=== PATIENT | male | born 1975 | race Two or more races ===

== ENCOUNTER 2024-05-03 20:14 | Emergency (ER) | payer BC, SELFPAY ==
[2024-05-03 20:14] VITALS: BP 120/80; PULSE 60; RESP 20; TEMP 37; O2SAT 98; BMI 19.8
--- NOTE | 2024-05-03 20:17 | ED_ITS ---
<Statement entered by Libertad Nye DO - 05/05/24 17:20> I was consulted by the CHIDI, and we discussed the complexity of the problems being addressed. I approved the treatment and management plan for this patient's care in the emergency department, thus performing a substantive portion of the medical decision making. Libertad Nye DO Discharge Plan Disposition Patient Disposition: Home, Self-Care Condition: Good Prescriptions Prescriptions: New pantoprazole [Protonix] 40 mg tablet,delayed release (DR/EC) 40 mg PO DAILY Qty: 30 0RF Referrals Follow up/Referrals: Tong John II, MD [Staff Physician] - See instructions Provider,ReferralMD [Referring] - See instructions Activity Restrictions/Add. Instructions Additional Instructions/Restrictions: As we discussed please follow-up with your PCP as scheduled. Please keep your stress test appointment and your ultrasound appointment. I have referred you to gastroenterology for further evaluation. Please call and make an appointment in the morning. I have sent a prescription to your pharmacy for an acid pill to help with your reflux symptoms. Clinical Impressions Clinical Impression: Chest pain Qualifiers: Chest pain type: unspecified Qualified Code(s): R07.9 - Chest pain, unspecified Print Language Print Language: Prydeinig Discharge ED Provider: Libertad Nye HPI <GERALD Robb - Last Filed: 05/04/24 16:14> General Chief Complaint: Chest Pain Stated Complaint: Chest Pain Time Seen by Provider: 05/03/24 20:17 History of Present Illness HPI narrative: Patient presents for left-sided chest pain. Patient states that he began having left upper chest pain around 530 while feeding the horses. He denies trauma or strain. He states that it radiates to his shoulder blade and down his arm. This is the second episode the first occurring approximately a week ago. His PCP evaluated him and has ordered a stress test as well as an upper abdominal ultrasound. Patient actually has been symptom-free since last Wednesday until today. He denies any dysphagia reflux shortness of breath fever chills hemoptysis hematochezia melena nausea vomiting diarrhea but did report diaphoresis when it happened. Patient is currently having chest pain actively in the emergency department however it is less than when it first started. Related Data Previous Rx's ?Medication ?Instructions ?Recorded pantoprazole 40 mg tablet,delayed 40 mg PO DAILY #30 tabs 05/03/24 release (Protonix) Allergies Allergy/AdvReac Type Severity Reaction Status Date / Time sulfamethoxazole Allergy Rash Verified 05/03/24 20:32 [From Septra] trimethoprim [From Septra] Allergy Rash Verified 05/03/24 20:32 PFSH <GERALD Robb - Last Filed: 05/04/24 16:14> PFS Disclaimer: The information contained in this section may have been updated after the patient was seen, as this information can be updated by other users. Social History (Updated 05/03/24 @ 22:55 by GERALD Robb) Smoking Status: Current every day smoker alcohol intake: never current occupational status: employed Travel in the last 8 weeks: None <GERALD Robb - Last Filed: 05/04/24 16:14> ROS Obtained: Yes Systems reviewed as appropriate & no additional complaints except as documented Physical Exam <GERALD Robb - Last Filed: 05/04/24 16:14> General General appearance: alert and in no apparent distress Respiratory Respiratory exam: Present normal lung sounds bilaterally Cardiovascular Cardiovascular exam: Present regular rate Neurological Exam Neurological exam: Present alert, oriented X3, CN II-XII intact and normal gait; Absent motor sensory deficit HEART Score <GERALD Robb - Last Filed: 05/04/24 16:14> HEART Score HEART Score assessment performed?: Yes History (anamnesis): Slightly suspicious ECG: Normal Age: 45-65 years Risk factors: 1-2 risk factors Troponin: </= normal limit HEART Score: 2 <Libertad Nye DO - Last Filed: 05/04/24 01:28> HEART Score HEART Score: 2 Critical Care <GERALD Robb - Last Filed: 05/04/24 16:14> Critical Care Time Critical Care Time: No Medical Decision Making <GERALD Robb - Last Filed: 05/04/24 16:14> Medical Records Medical records reviewed: Yes I reviewed the patient's medical records. Caleb Inquiry Pt receiving controlled substance: No Vital Signs Vital Signs: 05/03/24 20:14 05/03/24 20:31 05/03/24 22:37 Temperature 98.6 F 98.2 F Temperature Source Oral Pulse Rate 70 57 L Pulse Rate [Right Radial] 60 Respiratory Rate 20 20 Blood Pressure 126/86 Blood Pressure [Right Arm] 120/80 Blood Pressure Mean [Right Arm] 93 02 Sat by Pulse Oximetry 98 Oxygen Delivery Method Room Air Room Air Lab Data Lab results reviewed: Yes I reviewed the patient's lab results. Labs: Lab Results 05/03/24 20:25: WBC 10.6, RBC 4.91, Hgb 15.9, Hct 45.8, MCV 93.1, MCH 32.3 H, MCHC 34.7, RDW 13.3, Plt Count 312, MPV 7.7, Neut % (Auto) 60.0, Lymph % (Auto) 32.9, [place] % (Auto) 4.0, Eos % (Auto) 2.1, Baso % (Auto) 1.0, Neut # (Auto) 6.3, Lymph # (Auto) 3.5, Austin # (Auto) 0.4, Eos # (Auto) 0.2, Baso # (Auto) 0.1, PT 10.6, INR 0.94, D-Dimer 0.30, Sodium 139, Potassium 3.8, Chloride 105, Carbon Dioxide 25, Anion Gap 12.8, BUN 19, Creatinine 0.80, Estimated Creat Clear 91, Estimated GFR 103, Est GFR ( Amer) 124, Glucose 133 H, Calcium 9.5, Magnesium 2.1, Total Bilirubin 0.6, AST 40, ALT 20, Alkaline Phosphatase 68, Troponin I < 0.01, Total Protein 7.8, Albumin 4.8, Globulin 3.0, Albumin/Globulin Ratio 1.6, Lipase 105 05/03/24 20:25 05/03/24 20:25 Response Orders (Tests/Meds): ED MEDICATIONS Discontinued Medications Generic Name Dose Route Start Last Admin Trade Name Freq PRN Reason Stop Dose Admin Acetaminophen 1,000 mg 05/03/24 20:38 05/03/24 21:03 Acetaminophen 500mg Tab PO 05/03/24 20:39 1,000 mg ONCE ONE Administration Belladonna Alkaloids 60 ml 05/03/24 20:38 05/03/24 21:02 Belladonna Alkaloids 60 Ml Ml PO 05/03/24 20:39 60 ml ONCE ONE Administration Ketorolac Tromethamine 15 mg 05/03/24 20:38 05/03/24 21:02 Ketorolac 30mg/Ml Vial IV 05/03/24 20:39 15 mg ONCE ONE Administration ORDERS Category Date Time Status XR chest portable Stat Exams 05/03/24 21:44 Completed CBC w/Auto Diff [Complete Blood Count Auto Diff] Stat Lab 05/03/24 20:25 Completed CMP [Comprehensive Metabolic Panel] Stat Lab 05/03/24 20:25 Completed D-Dimer Stat Lab 05/03/24 20:25 Completed INR [Prothrombin Time INR] Stat Lab 05/03/24 20:25 Completed Lipase Stat Lab 05/03/24 20:25 Completed Magnesium Stat Lab 05/03/24 20:25 Completed Trop I [Troponin I] Stat Lab 05/03/24 20:25 Completed MDM Narrative Medical Decision Narrative: In summary patient is a 48-year-old male who presents to the emergency department for evaluation of left upper chest pain. Patient is dynamically stable upon arrival, afebrile. Physical exam is remarkable for unreproducible left upper chest pain including palpation of the shoulder girdle range of motion testing palpation of the chest wall. Breath sounds are clear and equal bilaterally to the bases without adventitious sounds, heart sounds are normal EKG appears to be normal sinus rhythm on the bedside monitor. Patient does have mild right upper quadrant tenderness on palpation but no epigastric tenderness no rebound no guarding no rigidity with normal bowel sounds. Patient is neurovascularly intact in the left upper extremity.. Differential diagnosis includes ACS versus musculoskeletal pain versus neuropathic pain. Initial workup will be conducted with hematologic labs twelve-lead EKG plain film chest x-ray. Initial interventions include crystalloid bolus Toradol Tylenol Lidoderm patch. Initial workup reviewed by me shows his hematologic labs are nonactionable troponin is undetectable and my informal to rotation of his plain film chest x-ray shows no acute processes. Upon repeat evaluation patient reported improvement after initial interventions. Given this I had interactive discussion with the patient regarding his findings and his current workup plan. Patient is already seen his PCP last week for this problem and had been scheduled for stress test tomorrow and an upper abdominal ultrasound. Via patient directed decision making patient is comfortable with continuing on for the stress test as this appears to be low likelihood that this is cardiac in nature and seems much more likely that it is shoulder girdle problem versus possible brachial plexus irritation or possibly referred pain from abdomen although that seems less likely as he has no other symptoms. Given this patient is appropriate for discharge with follow-up with cardiology and his PCP as scheduled. <Libertad Nye, DO - Last Filed: 05/04/24 01:28> Vital Signs Vital Signs: 05/03/24 20:14 05/03/24 20:31 05/03/24 22:37 Temperature 98.6 F 98.2 F Temperature Source Oral Pulse Rate 70 57 L Pulse Rate [Right Radial] 60 Respiratory Rate 20 20 Blood Pressure 126/86 Blood Pressure [Right Arm] 120/80 Blood Pressure Mean [Right Arm] 93 02 Sat by Pulse Oximetry 98 Oxygen Delivery Method Room Air Room Air Lab Data Labs: Lab Results 05/03/24 20:25: WBC 10.6, RBC 4.91, Hgb 15.9, Hct 45.8, MCV 93.1, MCH 32.3 H, MCHC 34.7, RDW 13.3, Plt Count 312, MPV 7.7, Neut % (Auto) 60.0, Lymph % (Auto) 32.9, [place] % (Auto) 4.0, Eos % (Auto) 2.1, Baso % (Auto) 1.0, Neut # (Auto) 6.3, Lymph # (Auto) 3.5, [place] # (Auto) 0.4, Eos # (Auto) 0.2, Baso # (Auto) 0.1, PT 10.6, INR 0.94, D-Dimer 0.30, Sodium 139, Potassium 3.8, Chloride 105, Carbon Dioxide 25, Anion Gap 12.8, BUN 19, Creatinine 0.80, Estimated Creat Clear 91, Estimated GFR 103, Est GFR ( Amer) 124, Glucose 133 H, Calcium 9.5, Magnesium 2.1, Total Bilirubin 0.6, AST 40, ALT 20, Alkaline Phosphatase 68, Troponin I < 0.01, Total Protein 7.8, Albumin 4.8, Globulin 3.0, Albumin/Globulin Ratio 1.6, Lipase 105 Response Orders (Tests/Meds): ED MEDICATIONS Discontinued Medications Generic Name Dose Route Start Last Admin Trade Name Freq PRN Reason Stop Dose Admin Acetaminophen 1,000 mg 05/03/24 20:38 05/03/24 21:03 Acetaminophen 500mg Tab PO 05/03/24 20:39 1,000 mg ONCE ONE Administration Belladonna Alkaloids 60 ml 05/03/24 20:38 05/03/24 21:02 Belladonna Alkaloids 60 Ml Ml PO 05/03/24 20:39 60 ml ONCE ONE Administration Ketorolac Tromethamine 15 mg 05/03/24 20:38 05/03/24 21:02 Ketorolac 30mg/Ml Vial IV 05/03/24 20:39 15 mg ONCE ONE Administration ORDERS Category Date Time Status XR chest portable Stat Exams 05/03/24 21:44 Completed CBC w/Auto Diff [Complete Blood Count Auto Diff] Stat Lab 05/03/24 20:25 Completed CMP [Comprehensive Metabolic Panel] Stat Lab 05/03/24 20:25 Completed D-Dimer Stat Lab 05/03/24 20:25 Completed INR [Prothrombin Time INR] Stat Lab 05/03/24 20:25 Completed Lipase Stat Lab 05/03/24 20:25 Completed Magnesium Stat Lab 05/03/24 20:25 Completed Trop I [Troponin I] Stat Lab 05/03/24 20:25 Completed ECG Data Tracing #1: Attestation: I reviewed this ECG and interpreted as documented below: ECG Narrative: Normal sinus rhythm with a ventricular of [address] changes concerning for ischemia. Normal axis and intervals. ECG initial impression date: 05/03/24 ECG initial impression time: 20:27
--- NOTE | 2024-05-03 20:22 | ECG_ITS ---
APPROVED REPORT Exam: Resting ECG HR:69 bpm ECG Measurements Heart Rate 69 AXES SC 148 P 69 QRSd 81 QRS 87 QT 391 T 70 QTc 410 Conclusion SINUS RHYTHM NORMAL ECG INTERPRETATION BASED ON A DEFAULT AGE OF 40 YEARS UNCONFIRMED REPORT Electronically signed by : PANCHO WHITEHEAD, 05/04/2024 06:51:49
[2024-05-03 20:31] VITALS: PULSE 70
[2024-05-03 20:46] LABS: Basophils # 0.1 K/mm3 (0-0.2); Eosinophils # 0.2 K/mm3 (0.0-0.4); Eosinophils % 2.1 % (0.1-12.0); Hematocrit 45.8 % (42.0-52.0); Hemoglobin 15.9 g/dL (14.1-18.0); Lymphocytes # 3.5 K/mm3 (0.7-4.5); Lymphocytes % 32.9 % (10-50); Mean Corpuscular HGB Conc 34.7 g/dL (31.8-35.4); Mean Corpuscular Hemoglobin 32.3 pg (27.0-31.2); Mean Corpuscular Volume 93.1 fl (80-94); Mean Platelet Volume 7.7 fl (7.4-10.4); Monocytes # 0.4 K/mm3 (0.1-1.0); Neutrophils # 6.3 K/mm3 (1.8-7.8); Platelet Count 312 K/mm3 (142-424); Red Blood Count 4.91 M/mm3 (4.60-6.20); Red Cell Distribution Width 13.3 % (11.5-17.5); White Blood Count 10.6 K/mm3 (4.8-10.8)
[2024-05-03 20:52] LABS: INR 0.94 (0.9-1.1); Prothrombin Time 10.6 seconds (10.1-12.5)
[2024-05-03 20:56] LABS: Albumin Level 4.8 g/dl (3.5-5.0); Chloride 105 mmol/L (98-107); Sodium 139 mmol/L (136-145)
[2024-05-03 20:57] LABS: Potassium 3.8 mmoL/L (3.5-5.1)
[2024-05-03 20:59] LABS: Alanine Aminotransferase 20 U/L (12-78); Albumin/Globulin Ratio 1.6 (1.1-1.8); Alkaline Phosphatase 68 U/L (38-126); Anion Gap 12.8 mEq/L (5-15); Aspartate Amino Transferase 40 U/L (17-59); Bilirubin,Total 0.6 mg/dl (0.2-1.3); Blood Urea Nitrogen 19 mg/dl (9-20); Calcium 9.5 mg/dl (8.4-10.2); Carbon Dioxide 25 mmol/L (22.0-30.0); Creatinine Clearance Estimated 91 mL/min (50-200); Estimated Glomerular Filt Rate 103 ml/min (>60); GFR (African American) 124 ML/MIN (>60); Glucose 133 mg/dl (74-100); Lipase 105 U/L (23-300); Total Protein,Serum 7.8 g/dl (6.3-8.2)
[2024-05-03 21:00] LABS: Magnesium 2.1 mg/dl (1.6-2.3)
[2024-05-03] MEDS: BELLADONNA ALKALOIDS 60 ML ML PO (21:02)
[2024-05-03] MEDS: KETOROLAC 30MG/ML VIAL 15 MG IV (21:02)
[2024-05-03] MEDS: ACETAMINOPHEN 500MG TAB 1000 MG PO (21:03)
[2024-05-03 21:15] LABS: Troponin I < 0.01 ng/ml (0.00-0.034)
--- NOTE | 2024-05-03 21:44 | XR_ITS ---
PROCEDURE INFORMATION: Exam: XR Chest Exam date and time: 05/03/2024 9:42 PM Age: 48 years old Clinical indication: Pain; Chest pressure; Additional info: Chest pain TECHNIQUE: Imaging protocol: Radiologic exam of the chest. Views: 1 view. COMPARISON: No relevant prior studies available. FINDINGS: Lungs: Mild hyperexpansion and hyperlucency with mild diaphragmatic flattening suggesting possible COPD. Pulmonary vasculature grossly normal. No gross pulmonary infiltrates or edema pattern. Pleural spaces: No pleural effusion. No pneumothorax. Heart/Mediastinum: Heart size normal. No tracheal/mediastinal shift. Bones/joints: No acute osseous abnormalities are identified. Old healed right clavicle fracture. IMPRESSION: 1. No acute thoracic process. 2. Evidence of COPD.
[2024-05-03 22:37] VITALS: BP 126/86; PULSE 57; RESP 20; TEMP 36.8; O2SAT 98
== END 2024-05-03 22:40 | disposition home or self-care (01) ==
PROVIDERS: Physician Assistant; Emergency Provider Emergency Medicine; PCP Nurse Practitioner Family
DX: R07.9 Chest pain, unspecified (principal)
CPT/HCPCS: 71045; 80053; 83690; 83735; 84484; 85025; 85378; 85610; 93005; 96374; 99284; J1885

== ENCOUNTER 2024-05-04 14:11 | Outpatient (CLI) | payer BC, SELFPAY ==
--- NOTE | 2024-05-04 | CA_ITS ---
APPROVED REPORT Exam: Resting ECG Reason for Exam: Chest Pain Tech: Abby Cannon Ht:5 ft 6 in Wt:127 lbs BSA: 1.65 m2 HR:55 bpm BP:127/79 mmHg Rhythm: Nsr, early repolorization changes in anterolateral leads Risk Factors Smoking: ECG Measurements Heart Rate 55 AXES Critical Notification Critical Value: No Conclusion Pt exercised 9:44 on Damian protocol Max HR: 170 % of PM: 99% Max BP: 158/80 Mets: 11.5 Test stopped due to: soa, fatigue No cp Occ PVC in recovery 1.[address] depression inferiorly EKG changes positive for ischemia without chest pain GXT only (no imaging) Electronically signed by : Allie Nick MD 05/10/2024 12:17:41
--- NOTE | 2024-05-04 15:36 | US_ITS ---
PROCEDURE INFORMATION: Exam: US Abdomen Complete Exam date and time: 05/04/2024 3:29 PM Age: 48 years old Clinical indication: Abdominal pain; Flank; Left upper quadrant (luq); Additional info: Luq pain TECHNIQUE: Imaging protocol: Real-time ultrasound of the abdomen with image documentation. Complete exam. COMPARISON: No relevant prior studies available. FINDINGS: Liver: Normal echogenicity. No mass. No intrahepatic bile duct dilatation. Gallbladder: No gallstones. No wall thickening. No pericholecystic fluid. Biliary ducts: No dilatation. No stones. Pancreas: Unremarkable as visualized. Right kidney: Normal echogenicity. 4.4 x 4.2 x 3.3 cm septated hypoechoic lesion. No calculi. No hydronephrosis. Left kidney: Normal echogenicity. No mass. No calculi. No hydronephrosis. Spleen: No splenomegaly. Intraperitoneal space: No significant free fluid. Aorta: Unremarkable. No aneurysm. Inferior vena cava: Unremarkable. IMPRESSION: RIGHT kidney lesion, incompletely characterized. Recommend nonemergent MRI.
== END 2024-05-04 23:59 | disposition home or self-care (01) ==
PROVIDERS: PCP Nurse Practitioner Family; Visit Provider Nurse Practitioner Family
DX: R10.12 Left upper quadrant pain (principal); R07.9 Chest pain, unspecified
CPT/HCPCS: 76700; 93017; 93018

== ENCOUNTER 2024-05-11 21:05 | Observation (INO) | payer BC, SELFPAY ==
--- NOTE | 2024-05-11 00:05 | ECG_ITS ---
APPROVED REPORT Exam: Resting ECG HR:48 bpm ECG Measurements Heart Rate 48 AXES NC 159 P 78 QRSd 88 QRS 87 QT 452 T 79 QTc 419 Conclusion SINUS BRADYCARDIA BORDERLINE ECG Trace elevation in inferior leads, no STEMI Electronically signed by : OZZIE PERLA, 05/12/2024 06:47:16
--- NOTE | 2024-05-11 20:59 | ECG_ITS ---
APPROVED REPORT Exam: Resting ECG HR:62 bpm ECG Measurements Heart Rate 62 AXES OH 145 P 65 QRSd 86 QRS 90 QT 395 T 56 QTc 401 Conclusion SINUS RHYTHM WITH SINUS ARRHYTHMIA NONSPECIFIC T-WAVE ABNORMALITY BORDERLINE ECG No STEMI Electronically signed by : OZZIE PERLA, 05/13/2024 03:41:31
--- NOTE | 2024-05-11 21:13 | XR_ITS ---
PROCEDURE INFORMATION: Exam: XR Chest Exam date and time: 05/11/2024 9:17 PM Age: 48 years old Clinical indication: Pain; Left-sided; Additional info: L sided cp TECHNIQUE: Imaging protocol: Radiologic exam of the chest. Views: 1 view. Total images: 2 COMPARISON: CR XR CHEST PORTABLE 05/03/2024 9:42 PM FINDINGS: Tubes, catheters and devices: EKG leads are present. Lungs: Nonspecific hyperinflation. No consolidation. No pulmonary vascular congestion or edema. Pleural spaces: Unremarkable. No pleural effusion. No pneumothorax. Heart/Mediastinum: Unremarkable. No cardiomegaly. No mediastinal widening or hilar enlargement. Bones/joints: Partially visualized mild degenerative changes of the lower thoracic spine. Remote fracture right clavicle. IMPRESSION: 1. No radiographically acute cardiopulmonary process. 2. Nonspecific hyperinflation.
[2024-05-11 21:14] VITALS: BP 136/86; PULSE 67; RESP 20; TEMP 36.7; O2SAT 100; BMI 20.1
--- NOTE | 2024-05-11 21:17 | ED_ITS ---
Discharge Plan Disposition Patient Disposition: Admitted Condition: Fair Prescriptions Prescriptions: No Action pantoprazole [Protonix] 40 mg tablet,delayed release (DR/EC) 40 mg PO DAILY Qty: 30 0RF Referrals Follow up/Referrals: Provider,ReferralMD [Primary Care Provider] - See instructions Clinical Impressions Clinical Impression: Unstable angina Print Language Print Language: [place]ralt[place] Discharge ED Provider: Jay Wade HPI <Jay Wade MD - Last Filed: 05/11/24 23:13> General Chief Complaint: Chest Pain Stated Complaint: Chest Pain Time Seen by Provider: 05/11/24 21:10 History of Present Illness HPI narrative: Please note that above description of symptoms, in this electronic medical record under categorization of recalled from ER triage doctor by RN are reflective of an initial nursing assessment, however, is not reflective of my full history and physical exam that was personally taken and clarified. Consequentially, this preceding description of symptoms, which may include the patient's categorized chief complaint in the EMR, do not reflect my personal clinical impression, and the ultimate description of history of present illness and patient stated complaints should be deferred to this section of the note. Unless stated otherwise or congruent with this section of the note, additional signs, symptoms, or incongruence should be interpreted as inaccurate with my clinical impression. Related Data Previous Rx's ?Medication ?Instructions ?Recorded pantoprazole 40 mg tablet,delayed 40 mg PO DAILY #30 tabs 05/03/24 release (Protonix) Allergies Allergy/AdvReac Type Severity Reaction Status Date / Time sulfamethoxazole Allergy Rash Verified 05/03/24 20:32 [From Septra] trimethoprim [From Marra] Allergy Rash Verified 05/03/24 20:32 PFSH <Jay Wade MD - Last Filed: 05/11/24 23:13> [facility] Disclaimer: The information contained in this section may have been updated after the patient was seen, as this information can be updated by other users. Social History (Updated 05/03/24 @ 22:55 by GERALD Robb) Smoking Status: Current every day smoker alcohol intake: never current occupational status: employed Travel in the last 8 weeks: None <Jay Wade MD - Last Filed: 05/11/24 23:13> ROS Obtained: Yes All systems reviewed & no additional complaints except as documented Physical Exam <Jay Wade MD - Last Filed: 05/11/24 23:13> General General appearance: alert Neck Neck exam: Present trachea midline Chest Chest inspection: Present normal inspection and symmetric chest wall rise Respiratory Respiratory exam: Present normal lung sounds bilaterally; Absent respiratory distress, wheezes, stridor, accessory muscle use or prolonged expiratory phase Cardiovascular Cardiovascular exam: Present regular rate, normal rhythm and other (Pulses equal and symmetric in upper and lower extremities) Extremities Exam Extremities exam: Absent edema Neurological Exam Neurological exam: Present alert, oriented X3 and CN II-XII intact Skin Skin exam: Present warm and dry; Absent cyanosis, diaphoresis or pallor HEART Score <Jay Wade MD - Last Filed: 05/11/24 23:13> HEART Score HEART Score assessment performed?: Yes History (anamnesis): Moderately suspicious ECG: Normal Age: 45-65 years Risk factors: No known risk factors Troponin: </= normal limit HEART Score: 2 <Maicol Jones MD - Last Filed: 05/12/24 00:58> HEART Score HEART Score: 2 Procedures <Jay Wade MD - Last Filed: 05/11/24 23:13> Limited Ultrasound Indication:: Limited cardiac ultrasound Indication: Chest pain Identified cardiac views: -Cardiac parasternal long axis -Cardiac parasternal short axis -Cardiac apical four-chamber Findings: -Cardiac activity present -Gross wall motion normal -Pericardial effusion absent -Right heart strain absent Impression: -Normal cardiac ultrasound Images were saved to permanent archive The study was technically adequate CPT: 91258 This study was performed by me, and I personally interpreted all images/videos. Based on my clinical judgement, these images were adequate and did not necessitate further imaging Critical Care <Jay Wade MD - Last Filed: 05/11/24 23:13> Critical Care Time Critical Care Time: No Medical Decision Making <Jay Wade MD - Last Filed: 05/11/24 23:13> Medical Records Medical records reviewed: Yes I reviewed the patient's medical records. Caleb Inquiry Pt receiving controlled substance: No Caleb was queried for this patient: No Vital Signs Vital Signs: 05/11/24 21:14 05/11/24 21:19 05/11/24 21:29 Temperature 98.0 F Temperature Source Oral Pulse Rate 62 65 Pulse Rate [Left Radial] 67 Respiratory Rate 20 13 Blood Pressure 126/88 Blood Pressure [Right Arm] 136/86 Blood Pressure Mean Blood Pressure Mean [Right Arm] 102 Blood Pressure Source [Right Arm] Automatic Cuff Blood Pressure Position [Right Arm] Sitting 02 Sat by Pulse Oximetry 100 98 Oxygen Delivery Method Room Air 05/11/24 22:00 05/11/24 23:00 05/11/24 23:30 Temperature Temperature Source Pulse Rate 56 L 50 L Pulse Rate [Left Radial] Respiratory Rate 14 15 Blood Pressure 125/80 138/89 128/79 Blood Pressure [Right Arm] Blood Pressure Mean 107 Blood Pressure Mean [Right Arm] Blood Pressure Source [Right Arm] Blood Pressure Position [Right Arm] 02 Sat by Pulse Oximetry 96 97 Oxygen Delivery Method 05/12/24 00:00 05/12/24 00:30 Temperature Temperature Source Pulse Rate 49 L 59 L Pulse Rate [Left Radial] Respiratory Rate 15 12 Blood Pressure 118/72 116/79 Blood Pressure [Right Arm] Blood Pressure Mean Blood Pressure Mean [Right Arm] Blood Pressure Source [Right Arm] Blood Pressure Position [Right Arm] 02 Sat by Pulse Oximetry 96 98 Oxygen Delivery Method Lab Data Labs: Lab Results 05/11/24 21:06: WBC 12.2 H, RBC 5.19, Hgb 17.0, Hct 48.3, MCV 93.2, MCH 32.7 H, MCHC 35.1, RDW 13.1, Plt Count 322, MPV 8.1, Neut % (Auto) 67.3, Lymph % (Auto) 25.6, [place] % (Auto) 4.4, Eos % (Auto) 1.9, Baso % (Auto) 0.7, Neut # (Auto) 8.2 H, Lymph # (Auto) 3.1, [place] # (Auto) 0.5, Eos # (Auto) 0.2, Baso # (Auto) 0.1, D -Dimer 0.58 H, Sodium 138, Potassium 3.8, Chloride 102, Carbon Dioxide 24, Anion Gap 15.8 H, BUN 22 H, Creatinine 0.80, Estimated Creat Clear 90, Estimated GFR 103, Est GFR ( Amer) 124, Glucose 97, Calcium 10.0, Total Bilirubin 0.6, AST 35, ALT 23, Alkaline Phosphatase 70, Troponin I 0.03, NT-Pro-B Natriuret Pep < 20.0, Total Protein 8.6 H, Albumin 5.0, Globulin 3.6 H, Albumin/Globulin Ratio 1.4, HIV 1&2 Antibody Rapid Nonreactive 05/12/24 00:08: Troponin I < 0.01 05/11/24 21:06 05/11/24 21:06 Response Orders (Tests/Meds): ED MEDICATIONS Generic Name Dose Route Start Last Admin Trade Name Major PRN Reason Stop Dose Admin Aspirin 324 mg 05/12/24 00:48 05/12/24 00:49 Aspirin 81mg Chewable Tablet PO 05/12/24 00:49 324 mg ONCE ONE Administration Aspirin 324 mg 05/12/24 00:49 05/12/24 00:53 Aspirin 81mg Chewable Tablet PO 05/12/24 00:50 Not Given ONCE ONE Morphine Sulfate 2 mg 05/12/24 00:55 Morphine 2mg/Ml Syringe IV 05/12/24 00:56 ONCE ONE Nitroglycerin 0.4 mg 05/12/24 00:46 05/12/24 00:48 Nitroglycerin 0.4mg Sl Tablet SL 05/12/24 00:47 0.4 mg ONCE ONE Administration Discontinued Medications Generic Name Dose Route Start Last Admin Trade Name Major PRN Reason Stop Dose Admin Iopamidol 150 ml 05/11/24 22:45 05/11/24 22:46 Iopamidol-370 (76%);100ml Bottle IV 05/11/24 22:46 150 ml ONCE ONE Administration Ketorolac Tromethamine 15 mg 05/11/24 21:15 05/11/24 21:27 Ketorolac 30mg/Ml Vial IV 05/11/24 21:16 15 mg ONCE ONE Administration Sodium Chloride 50 ml 05/11/24 22:45 05/11/24 22:46 0.9 % Sodium Chloride 50 Ml Vial IV 05/11/24 22:46 50 ml ONCE ONE Administration Sodium Chloride 10 ml 05/11/24 22:45 05/11/24 22:46 Sodium Chloride 0.9% 10ml Syr (Rad Only) IV 05/11/24 22:46 10 ml ONCE ONE Administration ORDERS Category Date Time Status CT angio chest PE protocol Stat Cat Scan 05/11/24 22:[address] angio head Stat Cat Scan 05/11/24 22:[address] angio neck Stat Cat Scan 05/11/24 22:[address] head/brain wo con Stat Cat Scan 05/11/24 22:05 Completed CXR --portable [XR chest portable] Stat Exams 05/11/24 21:13 Completed POCUS Point of Care (ER Only) Stat Exams 05/11/24 21:13 Completed CBC w/Auto Diff [Complete Blood Count Auto Diff] Stat Lab 05/11/24 21:06 Completed CMP [Comprehensive Metabolic Panel] Stat Lab 05/11/24 21:06 Completed D-Dimer Stat Lab 05/11/24 21:06 Completed HIV (1&2) Antibody Rapid Stat Lab 05/11/24 21:06 Completed Hep C Ab with Reflex to RNA Stat Lab 05/11/24 21:06 Received NT Pro Brain Natriuretic Pep. Stat Lab 05/11/24 21:06 Completed Trop I [Troponin I] Stat Lab 05/11/24 21:06 Completed Troponin I Q3H Lab 05/12/24 00:08 Completed Troponin I Q3H Lab 05/12/24 03:15 Ordered ECG Request Stat Y 05/11/24 23:51 Ordered MDM Narrative Medical Decision Narrative: 48-year-old male history of hypoglycemia presenting with chest pain. Patient was worked up for chest pain recently here at this hospital. Did not find anything. Went to see shipping weigher, shipping weigher allegedly did nuclear stress test and this was negative. About 30 minutes prior to arrival, patient was laying on the couch watching TV when he had acute onset left-sided chest pain. Radiated down his left arm, radiated upward toward his head, associated with headache. No cough, shortness of breath, diaphoresis, syncope, weakness, left lower extremity symptoms, vision changes, vomiting, or any other acute symptoms. States that the headache is the same that happened to him a couple weeks ago when he had similar chest pains. Also associated with intermittent numbness in his face and his left upper extremity. History was obtained via conversation with patient and family. On arrival, patient hemodynamically stable, alert, oriented x4, appropriate, GCS 15, moving all extremities spontaneously, pupils equal and reactive to light. Full physical exam performed and significant for very well-appearing male who is in no acute distress, but does appear anxious. Deep, steady breathing. Lungs are clear to auscultation anterior and posterior bilaterally. Cardiac exam without murmurs gallops or rubs. Pulses equal and symmetric in upper and lower extremities. Patient neurologically intact with normal pupils. Differential includes panic attack, anxiety, costochondritis, ACS, PA, PE, dissection, among other. Patient was given Toradol for symptomatic management and correction of underlying abnormalities. Patient placed on continuous cardiac monitoring and continuous pulse ox with initial blood pressure 136/80, heart rate 67, saturation 100% on room air. Independent interpretation of EKG shows sinus rhythm 62 beats a minute with no ST or T wave changes concerning for acute ischemia. MA 145, QRS 86, QTc 4 1. Workup independently interpreted and significant for mild leukocytosis 12.2 with neutrophilia. Dimer elevated at nearly 0.6. Troponin and BNP negative. Chest x-ray without acute or pulm airspace disease. On independent interpretation of imaging, no acute cardiopulmonary airspace disease on chest x-ray. CT angiogram of the chest without acute pulmonary embolus or obvious intrathoracic abnormality. CT head and CT angiograms of the head and neck pending at time of handoff. See radiology read for full review of final results. Heart score 2. Bedside [id number] ultrasound was performed with no acute abnormal finding. [employer] disclaimer Much of this encounter note is an electronic patient safety attendant spoken language to printed text. Electronic patient safety attendant of the spoken language may permit errors. Although I have reviewed the note, some errors may still exist. <Maicol Jones MD - Last Filed: 05/12/24 00:58> Vital Signs Vital Signs: 05/11/24 21:14 05/11/24 21:19 05/11/24 21:29 Temperature 98.0 F Temperature Source Oral Pulse Rate 62 65 Pulse Rate [Left Radial] 67 Respiratory Rate 20 13 Blood Pressure 126/88 Blood Pressure [Right Arm] 136/86 Blood Pressure Mean Blood Pressure Mean [Right Arm] 102 Blood Pressure Source [Right Arm] Automatic Cuff Blood Pressure Position [Right Arm] Sitting 02 Sat by Pulse Oximetry 100 98 Oxygen Delivery Method Room Air 05/11/24 22:00 05/11/24 23:00 05/11/24 23:30 Temperature Temperature Source Pulse Rate 56 L 50 L Pulse Rate [Left Radial] Respiratory Rate 14 15 Blood Pressure 125/80 138/89 128/79 Blood Pressure [Right Arm] Blood Pressure Mean 107 Blood Pressure Mean [Right Arm] Blood Pressure Source [Right Arm] Blood Pressure Position [Right Arm] 02 Sat by Pulse Oximetry 96 97 Oxygen Delivery Method 05/12/24 00:00 05/12/24 00:30 Temperature Temperature Source Pulse Rate 49 L 59 L Pulse Rate [Left Radial] Respiratory Rate 15 12 Blood Pressure 118/72 116/79 Blood Pressure [Right Arm] Blood Pressure Mean Blood Pressure Mean [Right Arm] Blood Pressure Source [Right Arm] Blood Pressure Position [Right Arm] 02 Sat by Pulse Oximetry 96 98 Oxygen Delivery Method Lab Data Labs: Lab Results 05/11/24 21:06: WBC 12.2 H, RBC 5.19, Hgb 17.0, Hct 48.3, MCV 93.2, MCH 32.7 H, MCHC 35.1, RDW 13.1, Plt Count 322, MPV 8.1, Neut % (Auto) 67.3, Lymph % (Auto) 25.6, [place] % (Auto) 4.4, Eos % (Auto) 1.9, Baso % (Auto) 0.7, Neut # (Auto) 8.2 H, Lymph # (Auto) 3.1, [place] # (Auto) 0.5, Eos # (Auto) 0.2, Baso # (Auto) 0.1, D -Dimer 0.58 H, Sodium 138, Potassium 3.8, Chloride 102, Carbon Dioxide 24, Anion Gap 15.8 H, BUN 22 H, Creatinine 0.80, Estimated Creat Clear 90, Estimated GFR 103, Est GFR ( Amer) 124, Glucose 97, Calcium 10.0, Total Bilirubin 0.6, AST 35, ALT 23, Alkaline Phosphatase 70, Troponin I 0.03, NT-Pro-B Natriuret Pep < 20.0, Total Protein 8.6 H, Albumin 5.0, Globulin 3.6 H, Albumin/Globulin Ratio 1.4, HIV 1&2 Antibody Rapid Nonreactive 05/12/24 00:08: Troponin I < 0.01 Response Orders (Tests/Meds): ED MEDICATIONS Generic Name Dose Route Start Last Admin Trade Name Freq PRN Reason Stop Dose Admin Aspirin 324 mg 05/12/24 00:48 05/12/24 00:49 Aspirin 81mg Chewable Tablet PO 05/12/24 00:49 324 mg ONCE ONE Administration Aspirin 324 mg 05/12/24 00:49 05/12/24 00:53 Aspirin 81mg Chewable Tablet PO 05/12/24 00:50 Not Given ONCE ONE Morphine Sulfate 2 mg 05/12/24 00:55 Morphine 2mg/Ml Syringe IV 05/12/24 00:56 ONCE ONE Nitroglycerin 0.4 mg 05/12/24 00:46 05/12/24 00:48 Nitroglycerin 0.4mg Sl Tablet SL 05/12/24 00:47 0.4 mg ONCE ONE Administration Discontinued Medications Generic Name Dose Route Start Last Admin Trade Name Major PRN Reason Stop Dose Admin Iopamidol 150 ml 05/11/24 22:45 05/11/24 22:46 Iopamidol-370 (76%);100ml Bottle IV 05/11/24 22:46 150 ml ONCE ONE Administration Ketorolac Tromethamine 15 mg 05/11/24 21:15 05/11/24 21:27 Ketorolac 30mg/Ml Vial IV 05/11/24 21:16 15 mg ONCE ONE Administration Sodium Chloride 50 ml 05/11/24 22:45 05/11/24 22:46 0.9 % Sodium Chloride 50 Ml Vial IV 05/11/24 22:46 50 ml ONCE ONE Administration Sodium Chloride 10 ml 05/11/24 22:45 05/11/24 22:46 Sodium Chloride 0.9% 10ml Syr (Rad Only) IV 05/11/24 22:46 10 ml ONCE ONE Administration ORDERS Category Date Time Status CT angio chest PE protocol Stat Cat Scan 05/11/24 22:[address] angio head Stat Cat Scan 05/11/24 22:[address] angio neck Stat Cat Scan 05/11/24 22:[address] head/brain wo con Stat Cat Scan 05/11/24 22:05 Completed CXR --portable [XR chest portable] Stat Exams 05/11/24 21:13 Completed POCUS Point of Care (ER Only) Stat Exams 05/11/24 21:13 Completed CBC w/Auto Diff [Complete Blood Count Auto Diff] Stat Lab 05/11/24 21:06 Completed CMP [Comprehensive Metabolic Panel] Stat Lab 05/11/24 21:06 Completed D-Dimer Stat Lab 05/11/24 21:06 Completed HIV (1&2) Antibody Rapid Stat Lab 05/11/24 21:06 Completed Hep C Ab with Reflex to RNA Stat Lab 05/11/24 21:06 Received NT Pro Brain Natriuretic Pep. Stat Lab 05/11/24 21:06 Completed Trop I [Troponin I] Stat Lab 05/11/24 21:06 Completed Troponin I Q3H Lab 05/12/24 00:08 Completed Troponin I Q3H Lab 05/12/24 03:15 Ordered ECG Request Stat Y 05/11/24 23:51 Ordered MDM Narrative Medical Decision Narrative: 48-year-old male history of hypoglycemia presenting with chest pain. Patient was worked up for chest pain recently here at this hospital. Did not find anything. Went to see shipping weigher, shipping weigher allegedly did nuclear stress test and this was negative. About 30 minutes prior to arrival, patient was laying on the couch watching TV when he had acute onset left-sided chest pain. Radiated down his left arm, radiated upward toward his head, associated with headache. No cough, shortness of breath, diaphoresis, syncope, weakness, left lower extremity symptoms, vision changes, vomiting, or any other acute symptoms. States that the headache is the same that happened to him a couple weeks ago when he had similar chest pains. Also associated with intermittent numbness in his face and his left upper extremity. History was obtained via conversation with patient and family. On arrival, patient hemodynamically stable, alert, oriented x4, appropriate, GCS 15, moving all extremities spontaneously, pupils equal and reactive to light. Full physical exam performed and significant for very well-appearing male who is in no acute distress, but does appear anxious. Deep, steady breathing. Lungs are clear to auscultation anterior and posterior bilaterally. Cardiac exam without murmurs gallops or rubs. Pulses equal and symmetric in upper and lower extremities. Patient neurologically intact with normal pupils. Differential includes panic attack, anxiety, costochondritis, ACS, PA, PE, dissection, among other. Patient was given Toradol for symptomatic management and correction of underlying abnormalities. Patient placed on continuous cardiac monitoring and continuous pulse ox with initial blood pressure 136/80, heart rate 67, saturation 100% on room air. Independent interpretation of EKG shows sinus rhythm 62 beats a minute with no ST or T wave changes concerning for acute ischemia. MA 145, QRS 86, QTc 4 1. Workup independently interpreted and significant for mild leukocytosis 12.2 with neutrophilia. Dimer elevated at nearly 0.6. Troponin and BNP negative. Chest x-ray without acute or pulm airspace disease. On independent interpretation of imaging, no acute cardiopulmonary airspace disease on chest x-ray. CT angiogram of the chest without acute pulmonary embolus or obvious intrathoracic abnormality. CT head and CT angiograms of the head and neck pending at time of handoff. See radiology read for full review of final results. Heart score 2. Bedside [id number] ultrasound was performed with no acute abnormal finding. [employer] disclaimer Much of this encounter note is an electronic patient safety attendant spoken language to printed text. Electronic patient safety attendant of the spoken language may permit errors. Although I have reviewed the note, some errors may still exist. Jones: Upon my assumption of care patient is stable. I agree with the assessment and plan from the primary provider. I reviewed the ECG from patient's initial presentation and agree it does not demonstrate findings of ischemia. Initial troponin was 0.03, elevated D-dimer with CT angiography pending. CT head, CT angiography of head and neck were negative for acute pathology. I personally interpreted CTA chest and do not appreciate PE or other acute intrathoracic abnormality such as dissection. See radiology read for final interpretation. Patient was placed into ED observation at 2340 for serial troponins and continued cardiac monitoring to rule out evolving PA and preclude unnecessary admission. Repeat ECG personally interpreted demonstrates sinus bradycardia, rate 48, patient does have slight elevation in the inferior leads without reciprocal changes. These do not meet criteria for STEMI but will continue to be monitored. Repeat troponin is actually improved, now undetectable at less than 0.01. Unfortunately patient just called out having worsening chest pain. He is receiving nitro and aspirin. Concern for unstable angina. I discussed this case with Dr. King and we discussed this patient's ECGs. He agrees patient is not having a STEMI but did recommend repeat troponin 1 hour from his last one which would be around 1:15 AM. He also agrees with my plan for admission. He recommended that if patient continues having pain to administer morphine. He does not recommend anticoagulation or other intervention at this time. Additional repeat ECG demonstrates sinus bradycardia, rate 50, normal axis, normal MA and QTc, no dynamic changes from ECG 40 minutes prior, no STEMI. I discussed this case with the hospitalist including cardiology recommendations. Patient was accepted for admission.
[2024-05-11 21:19] VITALS: PULSE 62
[2024-05-11 21:21] LABS: Basophils # 0.1 K/mm3 (0-0.2); Basophils % 0.7 % (0.1-2.0); Eosinophils # 0.2 K/mm3 (0.0-0.4); Eosinophils % 1.9 % (0.1-12.0); Hematocrit 48.3 % (42.0-52.0); Lymphocytes # 3.1 K/mm3 (0.7-4.5); Lymphocytes % 25.6 % (10-50); Mean Corpuscular HGB Conc 35.1 g/dL (31.8-35.4); Mean Corpuscular Hemoglobin 32.7 pg (27.0-31.2); Mean Corpuscular Volume 93.2 fl (80-94); Mean Platelet Volume 8.1 fl (7.4-10.4); Monocytes # 0.5 K/mm3 (0.1-1.0); Monocytes % 4.4 % (1.7-9.3); Neutrophils # 8.2 K/mm3 (1.8-7.8); Neutrophils % 67.3 % (37.0-80.0); Platelet Count 322 K/mm3 (142-424); Red Blood Count 5.19 M/mm3 (4.60-6.20); Red Cell Distribution Width 13.1 % (11.5-17.5); White Blood Count 12.2 K/mm3 (4.8-10.8)
[2024-05-11] MEDS: KETOROLAC 30MG/ML VIAL 15 MG IV (21:27)
[2024-05-11 21:29] VITALS: BP 126/88; PULSE 65; RESP 13; O2SAT 98
[2024-05-11 21:33] LABS: Alanine Aminotransferase 23 U/L (12-78); Albumin/Globulin Ratio 1.4 (1.1-1.8); Alkaline Phosphatase 70 U/L (38-126); Anion Gap 15.8 mEq/L (5-15); Aspartate Amino Transferase 35 U/L (17-59); Bilirubin,Total 0.6 mg/dl (0.2-1.3); Blood Urea Nitrogen 22 mg/dl (9-20); Carbon Dioxide 24 mmol/L (22.0-30.0); Chloride 102 mmol/L (98-107); Creatinine Clearance Estimated 90 mL/min (50-200); Estimated Glomerular Filt Rate 103 ml/min (>60); GFR (African American) 124 ML/MIN (>60); Globulin 3.6 g/dL (1.3-3.2); Glucose 97 mg/dl (74-100); Potassium 3.8 mmoL/L (3.5-5.1); Sodium 138 mmol/L (136-145); Total Protein,Serum 8.6 g/dl (6.3-8.2)
[2024-05-11 21:35] LABS: D-Dimer 0.58 ug/mL (0.0-0.5)
[2024-05-11 21:44] LABS: NT Pro Brain Natriuretic Pep. < 20.0 pg/mL (0-125); Troponin I 0.03 ng/ml (0.00-0.034)
[2024-05-11 22:00] VITALS: BP 125/80; PULSE 56; RESP 14; O2SAT 96
--- NOTE | 2024-05-11 22:00 | CT_ITS ---
PROCEDURE INFORMATION: Exam: CTA Chest With Contrast Exam date and time: 05/11/2024 10:36 PM Age: 48 years old Clinical indication: Pain; Chest pressure; Additional info: Dimer, acute cp L sided TECHNIQUE: Imaging protocol: Computed tomographic angiography of the chest with contrast. Exam focused on the arteries. 3D rendering (Not supervised by radiologist): MIP and/or 3D reconstructed images were created by the technologist. Radiation optimization: All CT scans at this facility use at least one of these dose optimization techniques: automated exposure control; mA and/or kV adjustment per patient size (includes targeted exams where dose is matched to clinical indication); or iterative reconstruction. Contrast material: ISOVUE; Contrast volume: 70 ml; Contrast route: INTRAVENOUS (IV); COMPARISON: CR XR CHEST PORTABLE 05/11/2024 9:17 PM FINDINGS: Pulmonary arteries: Normal. No pulmonary emboli. Aorta: Unremarkable. No aortic aneurysm. No aortic dissection. Celiac trunk and mesenteric arteries: There is an approximate 50% narrowing of the proximal 1 cm of the celiac axis. Lungs: Unremarkable. No consolidation. No masses. Pleural spaces: Unremarkable. No pneumothorax. No pleural effusion. Heart: Unremarkable. No cardiomegaly. No pericardial effusion. Coronary arteries: There are no coronary artery calcifications. Lymph nodes: Unremarkable. No enlarged lymph nodes. Kidneys: Right renal cortical cysts are noted the largest measuring 4 cm. Bones/joints: There are mild degenerative changes of the thoracic spine. No acute fracture is evident. Soft tissues: Unremarkable. IMPRESSION: 1. No acute findings. No pulmonary embolus. 2. 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 Follow-up nonemergent duplex study is suggested. COMMENTS: Consistent with the [employer]'s Incidental Findings Committee white paper (J Am Elyssa Radiol 2018): Any incidental renal lesion less than 1 cm or classified as too small to characterize, or any incidental cystic renal lesion characterized as simple-appearing, is likely benign. No follow-up imaging is recommended for these lesions per consensus recommendations based on imaging criteria.
--- NOTE | 2024-05-11 22:05 | CT_ITS ---
PROCEDURE INFORMATION: Exam: CTA Neck With Contrast Exam date and time: 05/11/2024 10:31 PM Age: 48 years old Clinical indication: Pain; Other: Neck; Additional info: Cp radiating up L side of neck, PHILLIPS TECHNIQUE: Imaging protocol: Computed tomographic angiography of the neck with contrast. Exam focused on the cervical segments of the vasculature. 3D rendering (Not supervised by radiologist): MIP and/or 3D reconstructed images were created by the technologist. Radiation optimization: All CT scans at this facility use at least one of these dose optimization techniques: automated exposure control; mA and/or kV adjustment per patient size (includes targeted exams where dose is matched to clinical indication); or iterative reconstruction. Contrast material: ISOVUE; Contrast volume: 80 ml; Contrast route: INTRAVENOUS (IV); COMPARISON: CT ANGIO HEAD 05/11/2024 10:31 PM FINDINGS: Right common carotid artery: No stenosis. No dissection or occlusion. Right internal carotid artery: No stenosis of the extracranial segment. No dissection or occlusion. Right external carotid artery: No occlusion or stenosis of the origin. Left common carotid artery: No stenosis. No dissection or occlusion. Left internal carotid artery: No stenosis of the extracranial segment. No dissection or occlusion. Left external carotid artery: No occlusion or stenosis of the origin. Right vertebral artery: No stenosis. No dissection or occlusion. Left vertebral artery: No stenosis. No dissection or occlusion. Soft tissues: Normal. No significant soft tissue swelling. Bones/joints: No acute fracture. IMPRESSION: No stenosis or occlusion. REFERENCES: NASCET CRITERIA. The degree of stenosis in the cervical segment of the internal carotid artery is based on NASCET criteria. Normal is no stenosis. Mild is less than 50% stenosis. Moderate is 50-69% stenosis. Severe is 70% to 99% stenosis. Total occlusion is no detectable patent lumen.
--- NOTE | 2024-05-11 22:05 | CT_ITS ---
PROCEDURE INFORMATION: Exam: CT Head Without Contrast Exam date and time: 05/11/2024 10:29 PM Age: 48 years old Clinical indication: Pain; Headache; Additional info: Cp radiating up L side of neck, PHILLIPS TECHNIQUE: Imaging protocol: Computed tomography of the head without contrast. Total images: 548 Radiation optimization: All CT scans at this facility use at least one of these dose optimization techniques: automated exposure control; mA and/or kV adjustment per patient size (includes targeted exams where dose is matched to clinical indication); or iterative reconstruction. COMPARISON: No relevant prior studies available. FINDINGS: Brain: Normal. No hemorrhage. Unremarkable white matter. No mass effect. The arnold-white interface is maintained. Cerebral ventricles: No ventriculomegaly. Paranasal sinuses: Visualized sinuses are unremarkable. No fluid levels. Mastoid air cells: Visualized mastoid air cells are well aerated. Bones: Unremarkable. No acute fracture. Soft tissues: Unremarkable. IMPRESSION: No acute intracranial abnormality.
--- NOTE | 2024-05-11 22:05 | CT_ITS ---
PROCEDURE INFORMATION: Exam: CTA Head With Contrast, Arteriography Exam date and time: 05/11/2024 10:31 PM Age: 48 years old Clinical indication: Pain; Headache; Additional info: Cp radiating up L side of neck, PHILLIPS TECHNIQUE: Imaging protocol: Computed tomographic angiography of the head with contrast. Exam focused on the arteries. 3D rendering (Not supervised by radiologist): MIP and/or 3D reconstructed images were created by the technologist. Radiation optimization: All CT scans at this facility use at least one of these dose optimization techniques: automated exposure control; mA and/or kV adjustment per patient size (includes targeted exams where dose is matched to clinical indication); or iterative reconstruction. Contrast material: ISOVUE; Contrast volume: 80 ml; Contrast route: INTRAVENOUS (IV); COMPARISON: CT ANGIO HEAD 05/11/2024 10:31 PM FINDINGS: ANTERIOR CIRCULATION: Right internal carotid artery: Intracranial segment is patent with no significant stenosis. No aneurysm. Right middle cerebral artery: No occlusion or significant stenosis. No aneurysm. Right anterior cerebral artery: No occlusion or significant stenosis. No aneurysm. Left internal carotid artery: Intracranial segment is patent with no significant stenosis. No aneurysm. Left middle cerebral artery: No occlusion or significant stenosis. No aneurysm. Left anterior cerebral artery: No occlusion or significant stenosis. No aneurysm. POSTERIOR CIRCULATION: Right vertebral artery: No occlusion or significant stenosis. No aneurysm. Left vertebral artery: No occlusion or significant stenosis. No aneurysm. Basilar artery: No occlusion or significant stenosis. No aneurysm. Right posterior cerebral artery: No occlusion or significant stenosis. No aneurysm. Left posterior cerebral artery: No occlusion or significant stenosis. No aneurysm. Brain: No definite mass, mass effect, or midline shift. Cerebral ventricles: No ventriculomegaly. Bones/joints: Unremarkable. No acute fracture. Soft tissues: Unremarkable. IMPRESSION: No large vessel stenosis or occlusion.
[2024-05-11 22:07] LABS: HIV (1&2) Antibody Rapid NONREACTIVE (NONREACTIVE)
[2024-05-11] MEDS: 0.9 % SODIUM CHLORIDE 50 ML VIAL IV (22:46)
[2024-05-11] MEDS: IOPAMIDOL-370 (76%);100ML BOTTLE 150 ML IV (22:46)
[2024-05-11] MEDS: SODIUM CHLORIDE 0.9% 10ML SYR (RAD ONLY) 10 ML IV (22:46)
[2024-05-11 23:00] VITALS: BP 138/89
[2024-05-11 23:30] VITALS: BP 128/79; PULSE 50; RESP 15; O2SAT 97
[2024-05-12] VITALS (17 sets, daily range): BP systolic 103–151; BP diastolic 63–87; PULSE 45–62; RESP 12–20; TEMP 36.4–36.8; O2SAT 96–100; BMI 20.8; BMI 20.9
[2024-05-12 00:38] LABS: Troponin I < 0.01 ng/ml (0.00-0.034)
--- NOTE | 2024-05-12 00:47 | ECG_ITS ---
APPROVED REPORT Exam: Resting ECG HR:50 bpm ECG Measurements Heart Rate 50 AXES TX 158 P 79 QRSd 89 QRS 87 QT 450 T 79 QTc 422 Conclusion SINUS BRADYCARDIA BORDERLINE ECG Trace ST elevation in the inferior leads, no STEMI Electronically signed by : OZZIE PERLA, 05/12/2024 06:46:45
[2024-05-12] MEDS: NITROGLYCERIN 0.4MG SL TABLET 0.4 MG SL (00:48)
[2024-05-12] MEDS: ASPIRIN 81MG CHEWABLE TABLET 324 MG PO (00:49)
--- NOTE | 2024-05-12 00:49 | PC.NURSE ---
Pt's came to nursing station reporting pt is currently having chest pain. MD aware. MD currently on phone with cardiology. EKG obtained. Nurse at bedside. Meds given per SEP.
--- NOTE | 2024-05-12 01:24 | PC.NURSE ---
report called to Jada MCGARRY
[2024-05-12 01:42] LABS: Troponin I < 0.01 ng/ml (0.00-0.034)
--- NOTE | 2024-05-12 01:52 | PC.NURSE ---
Patient arrived to floor via wheelchair from ED at 01:50.
[2024-05-12] MEDS: FAMOTIDINE 20MG TABLET 20 MG PO (02:51)
--- NOTE | 2024-05-12 03:38 | EXP.HP ---
History of Present Illness *Admission Date: 05/12/24 *Reason for visit:: Chest pain *History of present illness: This 48-year-old male, was seen last week for similar problems of a pain to the left upper chest running into the arm., Nuclear stress test was negative at that time., Tonight while watching TV problem returns we came to the emergency room. Dr. King was called and he will to be monitored for his troponins and placed up on the floor.. Potential for catheterizations in the morning patient was still having some chest pain upon arrival to the ER nitroglycerin was tried. Troponins remain normal at this time Patient is noted for being a long-term smoker. He reports no other problems except a little bit of a headache from the nitroglycerin at this time. [facility] Disclaimer: The information contained in this section may have been updated after the patient was seen, as this information can be updated by other users. Surgical History Hx of tonsillectomy Family History Other No significant family history Social History Smoking Status: Current every day smoker alcohol intake: never current occupational status: employed Travel in the last 8 weeks: None Other Medical History Have you received the Flu Vaccine for this season: Yes (05/11/24) Have you received the Pneumonia Vaccine: No Review of Systems Review of Systems Review of systems:: pertinent systems reviewed and negative unless documented below Constitutional Constitutional: Reports as per HPI Eyes Eyes: Reports as per HPI ENT Ears, Nose, Mouth, and Throat: Reports as per HPI *Cardiovascular Cardiovascular: Reports chest pain, Reports chest pain at rest and Reports chest pain with activity *Respiratory Respiratory: Reports as per HPI *Gastrointestinal Gastrointestinal: Reports as per HPI *Genitourinary Genitourinary: Reports system reviewed and no additional complaints, except as documented and Reports as per HPI *Musculoskeletal Musculoskeletal: Reports system reviewed and no additional complaints, except as documented and Reports as per HPI Integumentary/Breasts Skin/Breast: Reports system reviewed and no additional complaints, except as documented and Reports as per HPI *Neurologic Neurologic: Reports system reviewed and no additional complaints, except as documented and Reports as per HPI Endocrine Endocrine: Reports system reviewed and no additional complaints, except as documented Hematologic/Lymphatic Hematologic/Lymphatic: Reports system reviewed and no additional complaints, except as documented Allergic/Immunologic Allergic/Immunologic: Reports system reviewed and no additional complaints, except as documented Meds Home Medications and Allergies Home Medications ?Medication ?Instructions ?Recorded ?Confirmed ?Type pantoprazole 40 mg tablet,delayed 40 mg PO DAILY #30 tabs 05/03/24 05/12/24 Rx release (Protonix) aspirin 81 mg tablet,delayed 81 mg PO DAILY 05/12/24 05/12/24 History release buspirone 10 mg tablet 10 mg PO TID 05/12/24 05/12/24 History famotidine 20 mg tablet 20 mg PO BID 05/12/24 05/12/24 History methocarbamol 500 mg tablet 500 - 1,000 mg (1 - 2 x 500 mg) PO 05/12/24 Rx HS 30 days #60 tabs simethicone 80 mg chewable tablet 80 mg PO TIDP PRN Gas 05/12/24 05/12/24 History New Prescriptions to Start Prescriptions: Orlando Sanderson Allergies Allergy/AdvReac Type Severity Reaction Status Date / Time sulfamethoxazole Allergy Rash Verified 05/03/24 20:32 [From ] trimethoprim [From ] Allergy Rash Verified 05/03/24 20:32 Exam Data for Last 24 hours Vital signs and Labs for Last 24 Hours: Temp Pulse Resp BP Pulse Ox O2 Del Method 97.6 F 53 L 14 129/87 98 Room Air 05/12/24 02:00 05/12/24 02:00 05/12/24 02:00 05/12/24 02:00 05/12/24 02:00 05/12/24 02:30 Laboratory Results - last 24 hr 05/11/24 21:06: WBC 12.2 H, RBC 5.19, Hgb 17.0, Hct 48.3, MCV 93.2, MCH 32.7 H, MCHC 35.1, RDW 13.1, Plt Count 322, MPV 8.1, Neut % (Auto) 67.3, Lymph % (Auto) 25.6, [place] % (Auto) 4.4, Eos % (Auto) 1.9, Baso % (Auto) 0.7, Neut # (Auto) 8.2 H, Lymph # (Auto) 3.1, [place] # (Auto) 0.5, Eos # (Auto) 0.2, Baso # (Auto) 0.1, D-Dimer 0.58 H, Sodium 138, Potassium 3.8, Chloride 102, Carbon Dioxide 24, Anion Gap 15.8 H, BUN 22 H, Creatinine 0.80, Estimated Creat Clear 90, Estimated GFR 103, Est GFR ( Amer) 124, Glucose 97, Calcium 10.0, Total Bilirubin 0.6, AST 35, ALT 23, Alkaline Phosphatase 70, Troponin I 0.03, NT-Pro-B Natriuret Pep < 20.0, Total Protein 8.6 H, Albumin 5.0, Globulin 3.6 H, Albumin/Globulin Ratio 1.4, HIV 1&2 Antibody Rapid Nonreactive 05/12/24 00:08: Troponin I < 0.01 05/12/24 01:10: Troponin I < 0.01 I & O for Last 24 hours: Intake & Output 05/09/24 05/10/24 05/11/24 05/12/24 23:59 23:59 23:59 23:59 Weight 56.699 kg 58.769 kg Radiology Reports for the Last 24 Hours: Patient had CTs head neck chest no acute findings possible possible medium aruciate ligament syndrome as this iliac vein appears to be 50% occluded. Written report suggested follow-up later on Constitutional Constitutional: mild distress *Routine HEENT Exam Head: Present normocephalic and atraumatic Eye: Present EOMI and PERRL ENT: Present mucous membranes moist *Routine Neck Exam Neck: Present supple and full ROM Routine Chest/Breast/Axilla Exam Comments: Normal chest and chest wall exam *Routine Respiratory Exam Respiratory: Present CTA bilaterally, normal respiratory effort and able to speak in complete sentences *Routine Cardiovascular Exam Cardiovascular: Present RRR, Normal S1, Normal S2 and bradycardia *Routine Abdominal Exam Abdominal: Present soft and normoactive bowel sounds Comments: No abdominal tenderness abdomen flat no bloating *Routine Rectal Exam Rectal:: deferred *Routine Genitalia Exam Genitalia:: deferred *Routine Extremities Exam Comments: Normal extremity exam no signs of edema, brisk capillary refill to distal extremities Routine Back/Spine/Pelvis Exam Back/Spine: Present full ROM Comments: No back issues noted patient able to move walk stand as needed without any difficulty *Routine Skin Exam Skin: Present intact, dry and warm *Routine Neurological Exam Neurological: Present alert, oriented X3, CN II-XII intact, vision grossly intact and hearing grossly intact Comments: Patient is German speak Paraguayan fluently his Turkmen is good though., Expressed understanding of all instructions Routine Psychiatric Exam Psychiatric: Present normal affect, normal thought process, cooperative, good insight and good judgment H&P: Result Impressions Unstable angina Smoker Imaging and Cardiology CT scan - chest: Additional comments: No acute findings, noted possible compression of the up to 50% of celiac vessel, Assessment and Plan *Assessment and plan (1) Unstable angina: Status: Acute Category: Medical Code(s): I20.0 - Unstable angina (2) Chest pain: Status: Acute Qualifiers: Chest pain type: unspecified Qualified Code(s): R07.9 - Chest pain, unspecified Category: Medical Code(s): R07.9 - Chest pain, unspecified (3) Smoker: Status: Acute Category: Social Hx Code(s): F17.200 - Nicotine dependence, unspecified, uncomplicated Plan 48-year-old male who presented with chest pain. Discussed case with ER physician, request admission for cardiology evaluation. Cardiology was contacted and recommended admission for evaluation in the morning and possible heart cath. Medicine agreed to admit. Problems addressed as follows: 1. Unstable angina ER physician contacted me to let me know that the patient's troponins have been negative at this time that she had contacted Dr. King that I need to give Dr. King if the troponins increased but they have not throughout the night. Patient has rested well there is been no difficulty with him tonight. 2. Patient is a smoker, did go over with him the need for quitting smoking what he could do to the heart the lungs a potential for cancer in the future. 3. Placed on phototypesetting equipment monitor he is being monitored closely also troponins have continued to come back negative as of 3 AM Rounded on patient after nurse practitioner. Personally examined and interviewed patient. Agree with exam findings and care plan as documented. Serial troponins negative. EKG with no ischemic changes. Monitor on telemetry overnight. N.p.o. at midnight for heart cath. CBC, CMP, magnesium and lipids ordered for the morning; Chemistry normal with BUN 22, creatinine 0.8. Electrolytes normal potassium 3.8, sodium 138.
[2024-05-12 03:57] LABS: Troponin I < 0.01 ng/ml (0.00-0.034)
[2024-05-12 05:57] LABS: POC Glucose,Bedside 98 (70-110)
--- NOTE | 2024-05-12 06:08 | PC.WOUNDNOTE ---
0608: Pt. alert and orientated x 4. Pt. was admitted from the ED overnight. Pt. had left upper chest pain. No pain this am. Pt. is on room air. Pt. has slept since admission. at bedside. vital signs stable.
--- NOTE | 2024-05-12 07:44 | HMH.PHAINT1 ---
Pharmacy Intervention Comments: MEDICATION RECONCILIATION COMPLETED ON PATIENT USING EXTERNAL FILL HISTORY FROM PHARMACY. -LISY HORVATH, KODYD
--- NOTE | 2024-05-12 07:52 | CA_ITS ---
APPROVED REPORT EXAM: Comprehensive 2D, Doppler, and color-flow Echocardiogram Director Of Strategic Partnerships: Shanda Vines, RISHI, RVS Ht: 5 ft 6 in Wt: 130lbs BSA: 1.67 BP: 129/87 mmHg Indications: Atypical CP, Smoker Echo Enhancing Agent Indication: Rule out Shunt Agent(s) / Amount(s) Used: Agitated Saline 20 cc Comments: No evidence of right to left shunt 2D Dimensions Aortic Root 2.86 cm LA Volume 26.20 mL Left Atrium 2.62 cm LA Volume Index 15.70 mL/m2 (M/F) 16-34 RVID Base (AP4) 3.37 cm (M/F) 2.5-4.1 EF AP4 49.80 % LVOT 1.93 cm (M/F) 1.5-2.5 GL Strain -15.3 % M-Mode Dimensions RVDd 2.16 cm (0.9-2.6) LVDd 5.07 cm (3.5-5.7) Ao Diam 3.99 cm (2.0-3.7) LVDs 3.63 cm (3.5-5.7) IVSd 0.44 cm (0.6-1.1) PWd 0.59 cm (0.6-1.1) EF (Teich) 54.50% EPSs 0.63 cm FS 28.40% EDV (Teich) 122.10 mL TAPSE 2.58 (<1.7) ESV (Teich) 55.50 mL LV Diastology E Decel Time 111 (160-240 msec) E/A Ratio 1.95 MED E' 10.8 (>= 7 cm/sec) MED A' 11.00 cm/s E'/MED E' Ratio 6.07 (<= 14) LAT E' 19.6 (>= 10 cm/sec) LAT A' 10.50 cm/s E/LAT E' Ratio 3.35 (<= 14) Aortic Valve LVOT Max 77.0 (70-110 cm/s) JOSE Index 1.10 cm2/m2 LVOT VTI 17.23 cm AoV Peak Kris. 113.0 (50-130 cm/s) AO Mean GR. 2.80 (<5 mmHg) AO VTI 27.4 (18-25 cm) JOSE (VTI) 1.84 (2.5-4.5 cm2) Mitral Valve MV E Max Kris. 66.0 (40-130 cm/s) MV A Velocity 34.0 (40-130 cm/s) E/A Ratio 1.95 MV Decel. Time 111 (160-240 ms) Pulmonary Valve AZ End VMAX 75.0 cm/s Tricuspid Valve TR P. Velocity 252.00 cm/s RAP Estimate 10.00 mmHg RVSP 35.50 mmHg Left Ventricle The left ventricle is normal size. The left ventricular systolic function is normal. The left ventricular ejection fraction is within the normal range. There is normal left ventricular wall thickness. There is mild hypokinesis of the anteroseptal LV wall. The left ventricular diastolic function is normal. LVEF is 55%. Right Ventricle The right ventricle is mildly dilated. The right ventricular systolic function is normal. Atria The left atrium size is normal. The right atrium size is normal. There is no Doppler evidence of interatrial shunt. Administration of agitated saline demonstrates no evidence of interatrial shunt. Aortic Valve The aortic valve opens well. There is no aortic valvular stenosis. Trace aortic regurgitation. Mitral Valve The mitral valve is normal in structure. No evidence of mitral valve stenosis. Trace mitral regurgitation. Tricuspid Valve The tricuspid valve leaflets are thin and pliable. Trace tricuspid regurgitation. RVSP is 20-25 mmHg. Pulmonic Valve The pulmonary valve is normal in structure. Trace pulmonic regurgitation. Great Vessels The aortic root is normal in size. The ascending aorta is not well-visualized. IVC is normal in size and collapses >50% with inspiration. Pericardium There is no pericardial effusion. Other Information Study Quality: Fair Conclusion Normal LV systolic function. Mild hypokinesis of the anterior septal LV wall. Mild RV dilation with normal RV function. No significant valvular stenosis or regurgitation. There is no Doppler evidence of interatrial shunt. Administration of agitated saline demonstrates no evidence of interatrial shunt. Electronically signed by : Allie Nick MD 05/12/2024 10:43:04
--- NOTE | 2024-05-12 09:48 | P.CONCA_ITS ---
History of Present Illness History of Present Illness Consult date: 05/12/24 Requesting physician: Orlando Pan Consult reason: chest pain Chief complaint: chest pain, abnormal stress test Additional Medical History:: 1. Tobacco use, 1 pack/day for greater than 20 years 2. Anxiety 3. Recurrent chest pain with abnormal routine stress test with 1.[address] segment depression inferolaterally at peak stress, 04/2024 History of present illness: 48-year-old male history of hypoglycemia presenting with chest pain. Patient was worked up for chest pain recently here at this hospital. Did not find anything. Went to see filer and sander, filer and sander allegedly did nuclear stress test and this was negative. About 30 minutes prior to arrival, patient was laying on the couch watching TV when he had acute onset left-sided chest pain. Radiated down his left arm, radiated upward toward his head, associated with headache. No cough, shortness of breath, diaphoresis, syncope, weakness, left lower extremity symptoms, vision changes, vomiting, or any other acute symptoms. States that the headache is the same that happened to him a couple weeks ago when he had similar chest pains. Also associated with intermittent numbness in his face and his left upper extremity. History was obtained via conversation with patient and family. On arrival, patient hemodynamically stable, alert, oriented x4, appropriate, GCS 15, moving all extremities spontaneously, pupils equal and reactive to light. Full physical exam performed and significant for very well-appearing male who is in no acute distress, but does appear anxious. Deep, steady breathing. Lungs are clear to auscultation anterior and posterior bilaterally. Cardiac exam without murmurs gallops or rubs. Pulses equal and symmetric in upper and lower extremities. Patient neurologically intact with normal pupils. Differential includes panic attack, anxiety, costochondritis, ACS, NM, PE, dissection, among other. Patient was given Toradol for symptomatic management and correction of underlying abnormalities. Patient placed on continuous cardiac monitoring and continuous pulse ox with initial blood pressure 136/80, heart rate 67, saturation 100% on room air. Independent interpretation of EKG shows sinus rhythm 62 beats a minute with no ST or T wave changes concerning for acute ischemia. DE 145, QRS 86, QTc 4 1. Workup independently interpreted and significant for mild leukocytosis 12.2 with neutrophilia. Dimer elevated at nearly 0.6. Troponin and BNP negative. Chest x-ray without acute or pulm airspace disease. On independent interpretation of imaging, no acute cardiopulmonary airspace disease on chest x-ray. CT angiogram of the chest without acute pulmonary embolus or obvious intrathoracic abnormality. CT head and CT angiograms of the head and neck pending at time of handoff. See radiology read for full review of final results. Heart score 2. Bedside [id number] ultrasound was performed with no acute abnormal finding. The above per Dr. Maicol Jones in the ER Events as noted above confirmed with the patient. The stress test recently was a routine stress test without imaging. Patient did have 1.[address] segment depression in the inferior lateral leads at peak stress. He did walk 9 minutes and 44 seconds and did not have chest pain but did have shortness of breath and fatigue. In light of the recurrent chest pain and a male smoker with an abnormal stress test, I have recommended proceeding with left heart catheterization. Risk, benefits and procedure explained to the patient and his and they both agree to proceed. [facility] Disclaimer: The information contained in this section may have been updated after the patient was seen, as this information can be updated by other users. Surgical History Hx of tonsillectomy Family History Other No significant family history Social History Smoking Status: Current every day smoker alcohol intake: never current occupational status: employed Travel in the last 8 weeks: None Review of Systems Review of Systems Review of systems:: pertinent systems reviewed and negative unless documented below *Cardiovascular Cardiovascular: Reports chest pain and Reports dyspnea on exertion *Respiratory Respiratory: Denies cough and Reports dyspnea on exertion *Neurologic Neurologic: Reports system reviewed and no additional complaints, except as do cumented and Reports as per HPI Exam Data for Last 24 hours Vital signs and Labs for Last 24 Hours: Temp Pulse Resp BP Pulse Ox O2 Del Method 97.9 F 52 L 18 129/73 99 Room Air 05/12/24 08:00 05/12/24 08:00 05/12/24 08:00 05/12/24 08:00 05/12/24 08:00 05/12/24 09:34 Laboratory Results - last 24 hr 05/11/24 21:06: WBC 12.2 H, RBC 5.19, Hgb 17.0, Hct 48.3, MCV 93.2, MCH 32.7 H, MCHC 35.1, RDW 13.1, Plt Count 322, MPV 8.1, Neut % (Auto) 67.3, Lymph % (Auto) 25.6, [place] % (Auto) 4.4, Eos % (Auto) 1.9, Baso % (Auto) 0.7, Neut # (Auto) 8.2 H, Lymph # (Auto) 3.1, [place] # (Auto) 0.5, Eos # (Auto) 0.2, Baso # (Auto) 0.1, D-Dimer 0.58 H, Sodium 138, Potassium 3.8, Chloride 102, Carbon Dioxide 24, Anion Gap 15.8 H, BUN 22 H, Creatinine 0.80, Estimated Creat Clear 90, Estimated GFR 103, Est GFR ( Amer) 124, Glucose 97, Calcium 10.0, Total Bilirubin 0.6, AST 35, ALT 23, Alkaline Phosphatase 70, Troponin I 0.03, NT-Pro-B Natriuret Pep < 20.0, Total Protein 8.6 H, Albumin 5.0, Globulin 3.6 H, Albumin/Globulin Ratio 1.4, HIV 1&2 Antibody Rapid Nonreactive 05/12/24 00:08: Troponin I < 0.01 05/12/24 01:10: Troponin I < 0.01 05/12/24 03:10: Troponin I < 0.01 05/12/24 05:48: POC Glucose 98 I & O for Last 24 hours: Intake & Output 05/09/24 05/10/24 05/11/24 05/12/24 11:59 11:59 11:59 11:59 Output Total 0 / 0 Balance 0 / 0 Weight 130 lb 5 oz Constitutional Constitutional: no acute distress *Routine Respiratory Exam Respiratory: Present CTA bilaterally *Routine Cardiovascular Exam Cardiovascular: Present RRR; Absent murmur or gallop *Routine Extremities Exam Extremities: Absent edema *Routine Neurological Exam Neurological: Present alert, oriented X3 and CN II-XII intact Meds Home Medications and Allergies Home Medications ?Medication ?Instructions ?Recorded ?Confirmed ?Type pantoprazole 40 mg tablet,delayed 40 mg PO DAILY #30 tabs 05/03/24 05/12/24 Rx release (Protonix) aspirin 81 mg tablet,delayed 81 mg PO DAILY 05/12/24 05/12/24 History release buspirone 10 mg tablet 10 mg PO TID 05/12/24 05/12/24 History famotidine 20 mg tablet 20 mg PO BID 05/12/24 05/12/24 History methocarbamol 500 mg tablet 500 mg PO DAILY 05/12/24 05/12/24 History simethicone 80 mg chewable tablet 80 mg PO TIDP PRN Gas 05/12/24 05/12/24 History New Prescriptions to Start Prescriptions: Allergies Allergy/AdvReac Type Severity Reaction Status Date / Time sulfamethoxazole Allergy Rash Verified 05/03/24 20:32 [From ] trimethoprim [From ] Allergy Rash Verified 05/03/24 20:32 Assessment and Plan *Assessment and plan (1) Chest pain: Status: Acute Qualifiers: Chest pain type: unspecified Qualified Code(s): R07.9 - Chest pain, unspecified Category: Medical Code(s): R07.9 - Chest pain, unspecified (2) Unstable angina: Status: Acute Category: Medical Code(s): I20.0 - Unstable angina (3) Smoker: Status: Acute Category: Social Hx Code(s): F17.200 - Nicotine dependence, unspecified, uncomplicated (4) Abnormal cardiovascular stress test: Status: Acute Category: Medical Code(s): R94.39 - Abnormal result of other cardiovascular function study Plan 1. Recurrent chest pain/unstable angina in a patient with abnormal stress test -Troponins normal -EKG with no acute ST segment changes -Preliminary echo shows normal ejection fraction -Proceed with left heart catheterization. Offered CCTA but patient would prefer to proceed with the cardiac cath for definitive diagnosis and treatment. -Heart rates in the 50s and blood pressure borderline low so therefore unable to add beta-marely therapy or other antianginal therapy 2. Tobacco use -Smoking cessation recommended 3. 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 Left heart catheterization today Further recommendations to follow Cardiac cath report: ANGIOGRAPHIC RESULTS The left main artery Normal The left anterior descending artery Proximal 10% luminal irregularity The circumflex artery Normal The right coronary artery Dominant with proximal 10% luminal regularities The PERRY ventriculogram reveals Normal 65% The left ventricular end-diastolic pressure 10 mmHg IMPRESSION Mild nonflow limiting coronary disease Normal ejection fraction Normal LVEDP PLAN 1. Evaluation of nonischemic chest pain 2. Risk factor modification Electronically signed by : Florencio King MD 05/12/2024 11:54:05 Stable from a cardiac standpoint for discharge home later today. Resume home medications. Follow-up in our office in 1 to 2 weeks.
--- NOTE | 2024-05-12 09:53 | IR_ITS ---
APPROVED REPORT Patient Location: Inpatient PROCEDURES Left heart catheterization Left ventriculogram Selective coronary angiogram INDICATION Unstable angina, Abnormal stress test Informed consent was obtained prior to the procedure. COMPLICATIONS NONE Estimated Blood Loss: LESS THAN 10 ML TECHNIQUE One percent lidocaine used to anesthetize the right anterior aspect of the wrist. The right radial artery was accessed via the Seldinger technique. A 6 [place] sheath was placed in the right radial artery. 2.5 mg of Verapamil, 800 mcg of nitroglycerin, 1mg Lidocaine and 5000 U Heparin were given through the arterial sheath. The JL 3 guide catheter was also used to perform left heart catheterization, left ventriculogram and selective coronary angiogram. At the end of the procedure the sheath was removed good hemostasis was achieved using Traclet band, patient was transferred to the postop holding area in stable condition. ANGIOGRAPHIC RESULTS The left main artery Normal The left anterior descending artery Proximal 10% luminal irregularity The circumflex artery Normal The right coronary artery Dominant with proximal 10% luminal regularities The PERRY ventriculogram reveals Normal 65% The left ventricular end-diastolic pressure 10 mmHg IMPRESSION Mild nonflow limiting coronary disease Normal ejection fraction Normal LVEDP PLAN 1. Evaluation of nonischemic chest pain 2. Risk factor modification Electronically signed by : Florencio King MD 05/12/2024 11:54:05
[2024-05-12] MEDS: HEPARIN 1,000 UNITS/500ML NS (CATH LAB) 3000 UNIT IV (11:25)
[2024-05-12] MEDS: LIDOCAINE 1% 10ML MDV 20 ML IJ (11:25)
[2024-05-12] MEDS: HEPARIN 1,000 UNITS/ML 10ML VIAL (CATH LAB) 10000 UNIT IV (11:25)
[2024-05-12] MEDS: diphenhydrAMINE 50MG/ML VIAL 50 MG IV (11:26)
[2024-05-12] MEDS: VERAPAMIL 2.5MG/ML 2ML VIAL 2.5 MG IV (11:26)
[2024-05-12] MEDS: 0.9 % SODIUM CHLORIDE 500 ML 25 ML IV (11:26)
[2024-05-12] MEDS: MIDAZOLAM HCL 1MG/ML 5ML VIAL 1 MG IV (11:48)
[2024-05-12] MEDS: FENTANYL 100MCG/2ML VIAL 50 MCG IV (11:49)
[2024-05-12] MEDS: IOPAMIDOL-370 (76%);100ML BOTTLE 50 ML IV (14:00)
--- NOTE | 2024-05-12 14:27 | P.DS_ITS ---
General Admission date:: 05/12/24 Discharge date: 05/13/24 HPI HPI HPI: This 48-year-old male, was seen last week for similar problems of a pain to the left upper chest running into the arm., Nuclear stress test was negative at that time., Tonight while watching TV problem returns we came to the emergency room. Dr. King was called and he will to be monitored for his troponins and placed up on the floor.. Potential for catheterizations in the morning patient was still having some chest pain upon arrival to the ER nitroglycerin was tried. Troponins remain normal at this time Patient is noted for being a long-term smoker. He reports no other problems except a little bit of a headache from the nitroglycerin at this time. Hospital Course Hospital Course Hospital Course: 48-year-old male who presented with concern for unstable angina. Admitted medicine for further management. Cardiology consulted. Taken for heart cath with both with normal coronaries. Concern for musculoskeletal pain and cervical radiculopathy as source of patient's pain. Will refer to therapy for further management as an outpatient. Stable to discharge home. Problems addressed as follows: Recurrent chest pain/unstable angina in a patient with abnormal stress test -Admitted and monitored on telemetry overnight. Serial troponins negative. EKG with no acute ST segment changes. Preliminary echo showed normal ejection fraction. Proceeded with left heart cath. Found to have relatively normal coronaries. Proximal 10% luminal irregularity in the LAD and dominant right coronary but otherwise normal heart cath. Normal LVEDP. At this time patient's pain is definitively an alternate source from his heart. Further exam during admission shows concern for significant trigger points in trapezius and rhomboids with pain that radiates to his chest with palpation. Discussed relieving factors at home prior to admission. States he actually got some benefit from methocarbamol. Will continue methocarbamol 1 to 2 tablets nightly for muscle spasm. Referred to physical therapy for further management and treatment including consideration for dry needling Tobacco use: Smoking cessation recommended Exam Data for Last 24 hours Vital signs and Labs for Last 24 Hours: Temp Pulse Resp BP Pulse Ox O2 Del Method 98.2 F 62 16 122/71 100 Room Air 05/12/24 13:45 05/12/24 13:45 05/12/24 13:45 05/12/24 13:45 05/12/24 13:45 05/12/24 13:51 Laboratory Results - last 24 hr 05/11/24 21:06: WBC 12.2 H, RBC 5.19, Hgb 17.0, Hct 48.3, MCV 93.2, MCH 32.7 H, MCHC 35.1, RDW 13.1, Plt Count 322, MPV 8.1, Neut % (Auto) 67.3, Lymph % (Auto) 25.6, [place] % (Auto) 4.4, Eos % (Auto) 1.9, Baso % (Auto) 0.7, Neut # (Auto) 8.2 H, Lymph # (Auto) 3.1, [place] # (Auto) 0.5, Eos # (Auto) 0.2, Baso # (Auto) 0.1, D-Dimer 0.58 H, Sodium 138, Potassium 3.8, Chloride 102, Carbon Dioxide 24, Anion Gap 15.8 H, BUN 22 H, Creatinine 0.80, Estimated Creat Clear 90, Estimated GFR 103, Est GFR ( Amer) 124, Glucose 97, Calcium 10.0, Total Bilirubin 0.6, AST 35, ALT 23, Alkaline Phosphatase 70, Troponin I 0.03, NT-Pro-B Natriuret Pep < 20.0, Total Protein 8.6 H, Albumin 5.0, Globulin 3.6 H, Albumin/Globulin Ratio 1.4, HIV 1&2 Antibody Rapid Nonreactive 05/12/24 00:08: Troponin I < 0.01 05/12/24 01:10: Troponin I < 0.01 05/12/24 03:10: Troponin I < 0.01 05/12/24 05:48: POC Glucose 98 I & O for Last 24 hours: Intake & Output 05/09/24 05/10/24 05/11/24 05/12/24 23:59 23:59 23:59 23:59 Output Total 0 / 0 Balance 0 / 0 Weight 56.699 kg 59.109 kg Constitutional Constitutional: no acute distress, thin and cooperative *Routine HEENT Exam Head: Present normocephalic Eye: Present EOMI and PERRL ENT: Present mucous membranes moist *Routine Neck Exam Neck: Present supple; Absent lymphadenopathy Comments: TTP in upper trap muscles bilat *Routine Respiratory Exam Respiratory: Present CTA bilaterally; Absent rhonchi, wheezes or crackles *Routine Cardiovascular Exam Cardiovascular: Present RRR *Routine Abdominal Exam Abdominal: Present soft and normoactive bowel sounds; Absent tenderness *Routine Rectal Exam Patient deferred: visual exam *Routine Exam Patient deferred: penile exam *Routine Extremities Exam Extremities: Absent cyanosis, clubbing or edema Routine Back/Spine/Pelvis Exam Comments: tenderness to palpation in Bilateral traps, Left > Right, trigger points over rhomboids, radiation of pain down arm with palpation *Routine Skin Exam Skin: Present warm; Absent rash *Routine Neurological Exam Neurological: Present alert, oriented X3, CN II-XII intact and moving all extremities; Absent altered mental status Results Data Completed and Pending Labs on day of discharge: Labs from last 24 hours 05/12/24 05/12/24 05/12/24 05:48 03:10 01:10 WBC RBC Hgb Hct MCV MCH MCHC RDW Plt Count MPV Neut % (Auto) Lymph % (Auto) [place] % (Auto) Eos % (Auto) Baso % (Auto) Neut # (Auto) Lymph # (Auto) [place] # (Auto) Eos # (Auto) Baso # (Auto) D-Dimer Sodium Potassium Chloride Carbon Dioxide Anion Gap BUN Creatinine Estimated Creat Clear Estimated GFR Est GFR ( Amer) Glucose POC Glucose 98 Calcium Total Bilirubin AST ALT Alkaline Phosphatase Troponin I < 0.01 < 0.01 NT-Pro-B Natriuret Pep Total Protein Albumin Globulin Albumin/Globulin Ratio HIV 1&2 Antibody Rapid 05/12/24 05/11/24 00:08 21:06 WBC 12.2 H RBC 5.19 Hgb 17.0 Hct 48.3 MCV 93.2 MCH 32.7 H MCHC 35.1 RDW 13.1 Plt Count 322 MPV 8.1 Neut % (Auto) 67.3 Lymph % (Auto) 25.6 [place] % (Auto) 4.4 Eos % (Auto) 1.9 Baso % (Auto) 0.7 Neut # (Auto) 8.2 H Lymph # (Auto) 3.1 [place] # (Auto) 0.5 Eos # (Auto) 0.2 Baso # (Auto) 0.1 D-Dimer 0.58 H Sodium 138 Potassium 3.8 Chloride 102 Carbon Dioxide 24 Anion Gap 15.8 H BUN 22 H Creatinine 0.80 Estimated Creat Clear 90 Estimated GFR 103 Est GFR ( Amer) 124 Glucose 97 POC Glucose Calcium 10.0 Total Bilirubin 0.6 AST 35 ALT 23 Alkaline Phosphatase 70 Troponin I < 0.01 0.03 NT-Pro-B Natriuret Pep < 20.0 Total Protein 8.6 H Albumin 5.0 Globulin 3.6 H Albumin/Globulin Ratio 1.4 HIV 1&2 Antibody Rapid Nonreactive DS: Diagnosis Discharge Diagnosis (1) Chest pain: Status: Acute Code(s): R07.9 - Chest pain, unspecified Qualifiers: Chest pain type: unspecified Qualified Code(s): R07.9 - Chest pain, unspecified (2) Unstable angina: Status: Acute Code(s): I20.0 - Unstable angina (3) Smoker: Status: Acute Code(s): F17.200 - Nicotine dependence, unspecified, uncomplicated (4) Abnormal cardiovascular stress test: Status: Acute Code(s): R94.39 - Abnormal result of other cardiovascular function study (5) Radiculopathy affecting upper extremity: Status: Acute Code(s): M54.10 - Radiculopathy, site unspecified (6) Back muscle spasm: Status: Acute Code(s): M62.830 - Muscle spasm of back Meds Home Medications and Allergies Home Medications ?Medication ?Instructions ?Recorded ?Confirmed ?Type pantoprazole 40 mg tablet,delayed 40 mg PO DAILY #30 tabs 05/03/24 05/12/24 Rx release (Protonix) aspirin 81 mg tablet,delayed 81 mg PO DAILY 05/12/24 05/12/24 History release buspirone 10 mg tablet 10 mg PO TID 05/12/24 05/12/24 History famotidine 20 mg tablet 20 mg PO BID 05/12/24 05/12/24 History methocarbamol 500 mg tablet 500 - 1,000 mg (1 - 2 x 500 mg) PO 05/12/24 Rx HS 30 days #60 tabs simethicone 80 mg chewable tablet 80 mg PO TIDP PRN Gas 05/12/24 05/12/24 History New Prescriptions to Start Prescriptions: methocarbamol Orlando Pan Allergies Allergy/AdvReac Type Severity Reaction Status Date / Time sulfamethoxazole Allergy Rash Verified 05/03/24 20:32 [From ] trimethoprim [From ] Allergy Rash Verified 05/03/24 20:32 Discharge Plan Disposition Patient Disposition: Home, Self-Care Condition: Good Follow up Plan Follow up with: Rupal Rasmussen APRN [Referring] - 05/15/24 1:00 pm Yair Nick MD [Staff Physician] - 05/24/24 2:30 pm Prescriptions/Medication Reconciliation: New methocarbamol 500 mg tablet 500 - 1,000 mg PO HS 30 Days Qty: 60 0RF Continued pantoprazole [Protonix] 40 mg tablet,delayed release (DR/EC) 40 mg PO DAILY Qty: 30 0RF simethicone 80 mg tablet,chewable 80 mg PO TIDP PRN (Reason: Gas ) buspirone 10 mg tablet 10 mg PO TID famotidine 20 mg tablet 20 mg PO BID aspirin 81 mg Tablet,Delayed Release (Dr/Ec) 81 mg PO DAILY Discontinued methocarbamol 500 mg Tablet 500 mg PO DAILY Problem Reconciliation Problems Reviewed?: Yes Patient Discharge Instructions ACTIVITY: Continue current activity DIET: continue same diet Patient Instructions: DI for Surgical Site Infection, DI for Chest Pain Print Language: Wolof Providers Primary Care Provider: Provider,Referral Admit Provider: Orlando Pan Attending Provider: Orlando Pan
--- NOTE | 2024-05-12 15:04 | PC.NURSE ---
Right wrist cath device removed and non adherent dressing placed. iv also removed.
[2024-05-13 08:22] LABS: HCV Ab Non Reactive (Non Reactive)
--- NOTE | 2024-05-16 15:23 | CARE MANAGER ---
Attempted to contact patient x2 related to hospital discharge. ZEFERINO Pierre
== END 2024-05-12 15:26 | disposition home or self-care (01) ==
LOC: ER 05-12 00:56 → 2ND 05-12 01:26
PROVIDERS: Emergency Medicine; Internal Medicine; Admitting Provider Internal Medicine Adolescent Medicine; Emergency Provider Emergency Medicine; Visit Provider Internal Medicine Adolescent Medicine
DX: I25.110 Atherosclerotic heart disease of native coronary artery with unstable angina pectoris (principal); F17.210 Nicotine dependence, cigarettes, uncomplicated; M54.10 Radiculopathy, site unspecified; R94.39 Abnormal result of other cardiovascular function study; M62.830 Muscle spasm of back; Z79.899 Other long term (current) drug therapy
CPT/HCPCS: 70450; 70496; 70498; 71045; 71275; 80053; 82962; 83880; 84484; 85025; 85378; 86803; 87389; 93005; 93306; 93458; 99152; 99285; C1725; C1769; G0378; J1200; J1644; J1885; J2250; J2270; J3010; Q9967

== ENCOUNTER 2024-05-15 14:48 | Outpatient (CLI) | payer BC, SELFPAY ==
--- NOTE | 2024-05-15 14:59 | XR_ITS ---
FINAL REPORT CLINICAL HISTORY: Cervicalgia, mid back pain COMPARISON: None FINDINGS: THORACIC SPINE: AP, lateral, and swimmer's views of the thoracic spine were obtained. There is no prior exam for comparison. There is no acute fracture or malalignment. Mild degenerative change with multilevel osteophytes is present. There is a mild right curvature of the thoracic spine. Vertebral body height is preserved. Paraspinal soft tissues are within normal limits. IMPRESSION: Mild degenerative change with a mild right curvature, without acute bony abnormality. Reviewed, Interpreted and Dictated by Fritz Tiwari III, MD Transcribed by Selene Martin Authenticated and [facility]
== END 2024-05-15 23:59 | disposition home or self-care (01) ==
LOC: RAD 14:50
PROVIDERS: PCP Nurse Practitioner Family; Visit Provider Nurse Practitioner Family
DX: M54.2 Cervicalgia (principal)
CPT/HCPCS: 72072

== ENCOUNTER 2024-05-30 14:31 | Outpatient (CLI) | payer BC, SELFPAY ==
--- NOTE | 2024-05-30 14:36 | XR_ITS ---
FINAL REPORT CLINICAL HISTORY: CERVICALGIA COMPARISON: None FINDINGS: CERVICAL SPINE AP, lateral, and obliques were obtained. There is no acute fracture or malalignment. Inter-vertebral disc and vertebral body heights are preserved. Cervical lordosis is preserved. Facet joints are properly aligned. No significant degenerative changes are present. IMPRESSION: No acute process. Reviewed, Interpreted and Dictated by Kristen Kirkpatrick MD Transcribed by Elaine Butts Authenticated and [facility]
== END 2024-05-30 23:59 | disposition home or self-care (01) ==
LOC: RAD 14:32
PROVIDERS: PCP Nurse Practitioner Family; Visit Provider Nurse Practitioner Family
DX: M54.2 Cervicalgia (principal)
CPT/HCPCS: 72050

== ENCOUNTER 2024-06-23 12:55 | Outpatient (CLI) | payer BC, SELFPAY ==
--- NOTE | 2024-06-23 12:58 | MR_ITS ---
FINAL REPORT CLINICAL HISTORY: DISORDER OF KIDNEY COMPARISON: None FINDINGS: Multiplanar MR imaging of the abdomen was performed without and with contrast. There is a lobulated cystic mass in the upper pole of the right kidney measuring 48 x 37 x 34 mm. There is no solid enhancing component. The septations are thickened. Findings are compatible with a benign complex cyst. There is a tiny 4 mm nonenhancing capsular lesion in the right mid kidney compatible with a benign cyst. The left kidney is unremarkable. The remaining solid organs are normal. The gallbladder is contracted but unremarkable. There is no ascites. IMPRESSION: Dominant right renal lesion compatible with benign complex cyst. No evidence of renal obstruction or neoplasm. Reviewed, Interpreted and Dictated by Hansel Badillo MD Transcribed by Cristal George Authenticated and [facility]
[2024-06-23] MEDS: GADOTERIDOL INJ 20ML SYRINGE 12 ML IV (13:53)
[2024-06-23] MEDS: SODIUM CHLORIDE 0.9% 50ML BAG 25 ML IV (13:53)
[2024-06-23] MEDS: SODIUM CHLORIDE 0.9% 10ML SYR (RAD ONLY) 10 ML IV (13:53)
== END 2024-06-23 23:59 | disposition home or self-care (01) ==
LOC: RAD 12:57
PROVIDERS: PCP Nurse Practitioner Family; Visit Provider Nurse Practitioner Family
DX: N28.9 Disorder of kidney and ureter, unspecified (principal)
CPT/HCPCS: 74183; A9576

== ENCOUNTER 2024-06-26 13:00 | Outpatient (RCR) | payer BC, SELFPAY ==
--- NOTE | 2024-05-18 16:06 | HMH.PTOPEV ---
PT Outpatient Evaluation Rehab PT Outpatient Evaluation Start: 05/18/24 14:51 Freq: Status: Active Protocol: Document 05/18/24 15:49 DAVIDE (Rec: 05/18/24 16:06 ALEJAMARGARET [id number]) E-signed By Cedric Grossman, PT Outpatient Therapy Subjective History Subjective History Pt is a 48 yom who is referred to outpatient physical therapy after a stay in the hospital due to chest and left upper extremity pain. The patient reports that he went to the ER because he was afraid he was having a heart attack. He reports his heart was fine and that it was deemed the pain was coming from another source. He reports left sided neck and thoracic pain and left arm pain with occasional numbness and tingling. 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 The last week he has tired to relax much more and it seems like his pain has gotten a little better but it still is very painful. New diagnosis of cancer in past 12 No months? Chief Complaint Pain,Stiff Symptom Type Throb,Burning,Shooting Symptoms Relieved By Rest/Positioning,Heat,Ice, Prescription Meds Symptoms Aggravated By Prone,Supine,Twisting Prior Functional Limitations None Current Functional Limitations Reaching,Housework,Dressing, Driving Symptom Description Constant but Variable Level of pain today (0-10) 6 Pain scale - at its best (0-10) 10 Pain scale - at its worst (0-10) 6 Cervical Eval Palpation Cervical Muscles R Cervical Paraspinal,L Cervical Paraspinal,R Upper Trapezius,L Upper Trapezius,R Thoracic Paraspinals,L Thoracic Paraspinals Cervical/Thoracic Palpation Findings Tenderness,Spasm,Trigger Point Flexibility Deficits Upper Trapezius Muscle Length (R) Severe Tightness,(L) Severe Tightness Pectoralis Minor Muscle Length (R) Severe Tightness,(L) Severe Tightness Passive Joint Mobility Cervical PIVM Dec: R C4/5 L C4/5 R C5/6 L C5/6 R C6/7 L C6/7 R C7/T1 L C7/T1 WNL: R OA L OA R AA L AA R C2/3 L C2/3 R C3/4 L C3/4 AROM Cervical Spine Extension Active Range of 25 Motion (degrees) Cervical Spine Flexion Active Range of 40 Motion (degrees) Cervical Spine Right Lateral Flexion 24 Active Range of Motion (degrees) Cervical Spine Left Lateral Flexion 22 Active Range of Motion (degrees) Cervical Spine Right Rotation Active 42 Range of Motion (degrees) Cervical Spine Left Rotation Active 38 Range of Motion (degrees) MMT Right Deltoid (C5) 4 Good Biceps Brachii Strength Grade 5 Normal Wrist Extension Strength Grade 5 Normal Triceps Brachii Strength Grade 5 Normal Wrist Flexion Strength Grade 5 Normal Extensor Pollicis Longus Strength Grade 5 Normal Finger Abduction Strength Grade 5 Normal Left Deltoid (C5) 4- Good- Biceps Brachii Strength Grade 4 Good Wrist Extension Strength Grade 4 Good Triceps Brachii Strength Grade 4 Good Wrist Flexion Strength Grade 5 Normal Extensor Pollicis Longus Strength Grade 5 Normal Finger Abduction Strength Grade 5 Normal DTR Rt Biceps 2+ Lt Biceps 2+ Rt Brachioradialis 2+ Lt Brachioradialis 2+ Rt Triceps 2+ Lt Triceps 2+ Altered Sensation Bilateral Comment No hyposensation noted Special Test C-Spine Foraminal Compression ([place]) Positive Left Test C-spine Verterbral Accessory Movements Central P/A [place],Left P/A that Elicit Symptoms [place] C-Spine Foraminal Distraction Test Positive C-Spine Compression Test Negative Left,Negative Right Neck Disability Index Neck Disability Index Section 1: Pain Intensity The pain is moderate at the moment Section 2: Personal Care (washing, I can look after myself dressing, etc.) normally but it causes extra pain Section 3: Lifting I can lift heavy weights but it gives extra pain Section 4: Reading I can't read as much as I want because of moderate pain in my neck Section 5: Headaches I have moderate headaches, which come frequently Section 6: Concentration I can concentrate fully when I want to with slight difficulty Section 7: Work I cannot do my usual work Section 8: Driving I can't drive my car as long as I want because of moderate pain in my Section 9: Sleeping My sleep is midly disturbed (1 -2 hrs sleepless) Section 10: Recreation I am able to engage in a few of my usual recreation activities because NDI Score 22 Miscellaneous Dx PT Eval Objective Objective Thoracic spine globally tender 2/4 and moderately kyphotic Outpatient Therapy Assessment Impairments Problems/Impairmments Palpation Tenderness,Impaired Range of Motion,Impaired Strength,Impaired Driving, Impaired Lifting,Impaired Shower/Bathing,Impaired Work Activities,Subjective C/O Pain Prognosis Rehab Potential Good Comment Pt demonstrates global cervical and thoracic hypomobility with accompanied trigger points throughout L trapezius and thoracic paraspinals. Pt also demonstrated a positive spurling's test with accompanied numbness and tingling into the L UE. These signs and symptoms are consistent with neck pain with radiating pain. The patient would benefit from skilled PT to address his current impairments and to promote a return to his prior level of function. Clinical Impression Consistent with Diagnosis Yes Short Term Goals Number of Weeks 3 Decreased Palpation Tenderness Yes: 1/4 Increase Range of Motion Yes: 75% WNL Increase Strength Yes: 4+/5 to shoulder MSK Improve Tolerance to Work Activities Yes: normal daily work with 4/ 10 pain Improve Neck Disability Index Score Yes: to 15 Decrease Subjective C/O Pain Yes: 6/10 at worst Patient to be Ind w/ HEP Yes Group Home Goals Number of Weeks 6 Decreased Palpation Tenderness Yes: 0/4 Increase Range of Motion Yes: 100% WNL Increase Strength Yes: 5/5 shoulder MSK Improve Tolerance to Work Activities Yes: normal day's work 2/10 pain Improve Neck Disability Index Score Yes: to 8 Decrease Subjective C/O Pain Yes: 2/10 at worst Patient to be Ind w/ Advanced HEP Yes Outpatient Therapy Plan of Care Treatment Plan May Include Therapeutic Exercise Including Home Yes Exercise Program Manual Therapy Techniques Yes Neuromuscular Re-education Yes Therapeutic Activities to Return to Yes Previous Functional/Work Level ADL/Self Care Education Yes Mechanical Traction Yes Dry Needling Yes Thermal Modalities Yes Electrical Stimulation Yes Massage Yes Eval/Re-Eval Yes Frequency Times per week 2 Duration Number of Weeks 6 Addendums This patient is a candidate for social No or vocational rehab? Patient/Guardian verbally acknowledges Yes understanding of treatment program and consents to further treatment? Patient/Guardian verbally acknowledges Yes understanding of diagnosis, prognosis and goals for treatment? Eval Complexity PT Charges 25625 - Moderate Complexity Shoulder/Elbow Eval Shoulder Objective Measurements Elbow Objective Measurements PHYSICIAN CERTIFICATION: I certify the specified therapy services for Sam Eller are required, authorized, and reviewed every 30 days.
--- NOTE | 2024-06-20 14:11 | HMH.RHREAS ---
Rehab Reassessment Rehab OP Re-assessment Start: 05/18/24 14:51 Freq: Status: Active Protocol: Document 06/20/24 14:03 DAVIDE (Rec: 06/20/24 14:10 DAVIDE [id number]) E-signed By Cedric Grossman, PT Neck Disability Index Neck Disability Index Section 1: Pain Intensity The pain is fairly severe at the moment Section 2: Personal Care (washing, I can look after myself dressing, etc.) normally but it causes extra pain Section 3: Lifting I can lift heavy weights but it gives extra pain Section 4: Reading I can't read as much as I want because of moderate pain in my neck Section 5: Headaches I have moderate headaches, which come frequently Section 6: Concentration I can concentrate fully when I want to with slight difficulty Section 7: Work I cannot do my usual work Section 8: Driving I can drive my car as long as I want with moderate pain in my neck Section 9: Sleeping My sleep is slightly disturbed (less than 1 hr sleepless) Section 10: Recreation I am able to engage in most, but not all of my usual recreation NDI Score 20 Rehab Re-assessment Subjective Subjective The patient reports that he was doing much better and that therapy was helping greatly until this past Wednesday. He reports that he is unsure what the trigger was, but he felt like he went back to [facility]. He reports that prior to this weekend, the pain did not exceed a 5/10 pain. However, this weekend it reached a 10/ 10 pain. He reports that he is working but he would only estimate that he is doing approximately 10% of his job duties. He reports that he would like to continue doing therapy because it was helping . Objective Objective Notes TTP: 1/4 to Thoracic Spine and UT BL. MMT to B Shoulders: 4+/5 to flexion, abduction and rhomboids B. CROM: 75% in all directions. Assessment Progress Assessment Slower Than Expected Assessment Notes Patient was progressing well. He was making significant progress in strength, pain and functional capabilities prior to this setback. The patient still has demonstrated improvements in cervical range of motion and shoulder strength. However, he still has more progress to be made. Skilled PT remains indicated for this pt. Patient goals met ST,2,3,[address] Not Met ST,5,6 LT-8 Plan Plan Continue as per initial POC. Utilize thoracic manipulation prior to exercises. Frequency of Therapy 2/week Duration of therapy 4 weeks Time and Billing Re-Eval Time 14 Re-Eval Billing Units 0 Charge for PT reassessment? No PHYSICIAN CERTIFICATION: I certify the specified therapy services for Sam WoodsendezGilbert are required, authorized, and reviewed every 30 days.
== END 2024-06-26 23:59 | disposition home or self-care (01) ==
LOC: PT 13:00
PROVIDERS: Visit Provider Internal Medicine Adolescent Medicine
DX: M62.838 Other muscle spasm (principal); M54.10 Radiculopathy, site unspecified
CPT/HCPCS: 97014; 97035; 97110; 97140; 97163; G0283

== ENCOUNTER 2024-07-19 09:42 | Outpatient (CLI) | payer OTHER, SELFPAY ==
--- NOTE | 2024-07-19 09:43 | CT_ITS ---
FINAL REPORT TECHNIQUE: IV contrast enhanced exam This study was performed with techniques to keep radiation doses as low as reasonably achievable, (ALARA). Individualized dose reduction techniques using automated exposure control or adjustment of mA and/or kV according to the patient''s size were employed. CLINICAL HISTORY: LUQ/epigastric/RUQ/LLQ pain/bloating FINDINGS: Abdomen: No acute density is seen within the lung bases. The gallbladder is unremarkable. There is a lobulated benign cyst in the lateral right kidney measuring 45 mm. The remaining solid abdominal organs are unremarkable. No bowel obstruction is present. There is no free air. No fluid collection is seen. There is no adenopathy. Pelvis: The appendix is not identified but there are no secondary findings to suggest appendicitis. The bladder and prostate are unremarkable. There is mild fecal impaction. No bowel wall thickening is present. There is no free fluid. No pelvic mass is seen. IMPRESSION: No acute findings. Incidental moderate right renal cyst. Mild fecal impaction. Reviewed, Interpreted and Dictated by Hansel Badillo MD Transcribed by Devika Morfin Authenticated and [facility]
[2024-07-19 10:15] LABS: Blood Urea Nitrogen 16 mg/dl (9-20); Estimated Glomerular Filt Rate 120 ml/min (>60); GFR (African American) 145 ML/MIN (>60)
[2024-07-19] MEDS: IOPAMIDOL-370 (76%);100ML BOTTLE 75 ML IV (10:43)
[2024-07-19] MEDS: SODIUM CHLORIDE 0.9% 10ML SYR (RAD ONLY) 10 ML IV (10:43)
== END 2024-07-19 23:59 | disposition home or self-care (01) ==
LOC: RAD 09:43
PROVIDERS: PCP Nurse Practitioner Family; Visit Provider Nurse Practitioner Family
DX: R10.12 Left upper quadrant pain (principal); R10.32 Left lower quadrant pain; R10.13 Epigastric pain; R10.11 Right upper quadrant pain
CPT/HCPCS: 36415; 74177; 82565; 84520; Q9967

== ENCOUNTER 2024-09-21 10:10 | Day surgery (SDC) | payer OTHER, SELFPAY ==
[2024-09-20 11:32] VITALS: BMI 20.3
[2024-09-21] VITALS (7 sets, daily range): BP systolic 100–124; BP diastolic 71–84; PULSE 51–72; RESP 17–18; TEMP 36.1–36.6; O2SAT 99–100
[2024-09-21] MEDS: LACTATED RINGERS 1000ML 1,000 ML 50 ML IV (11:06)
--- NOTE | 2024-09-21 11:08 | EXP.ANES.CKL ---
[facility] Disclaimer: The information contained in this section may have been updated after the patient was seen, as this information can be updated by other users. Medical History (Updated 09/21/24 @ 10:53 by Romina Toney RN) Anxiety Hypoglycemia Seasonal allergies Surgical History History of cardiac cath Hx of tonsillectomy Family History Other No significant family history Social History (Updated 09/21/24 @ 10:53 by Romina Toney RN) Smoking Status: Current every day smoker alcohol intake: never substance use type: denies use current occupational status: unemployed Travel in the last 8 weeks: None caffeine: Yes [facility] Anesthesia Checklist Patient Identification Patient Identification: Arm Band Structural Data Admitted From: Home Planned Operative Procedure/s: Colonoscopy Consent for Planned Operative Procedure(s) Verified: Yes Verified Documents: Surgical Consent and History and Physical NPO Status Verified Time NPO: 09:00 (Finished Prep) Additional verifications Anesthesia Reactions: No Airway Assessment Mallampati Score:: Class II C-Spine Mobility Assessed: Yes TMJ Mobility Assessed: Yes Dentition: Good Dentition Neurological Assessment Level of Consciousness: Awake, Alert and Appropriate Anesthesia Plan Anesthesia Risk discussed: Yes Anesthesia Plan: Verified ASA Class: II Anesthesia Type: MAC
--- NOTE | 2024-09-21 11:45 | P.HP_ITS ---
History of Present Illness *Admission Date: 09/21/24 *History of present illness: Mr. Caballero is a 49-year-old gentleman who is here for diagnostic colonoscopy. He has had left upper quadrant abdominal pain and some right upper quadrant abdominal pain with bloating. His abdominal ultrasound was normal. The examination is deemed medically necessary for diagnostic colonoscopy. The patient has been seen, interviewed and examined prior to the procedure by both myself and the anesthesia provider. [facility] Disclaimer: The information contained in this section may have been updated after the patient was seen, as this information can be updated by other users. Medical History (Updated 09/21/24 @ 10:53 by Romina Toney RN) Anxiety Hypoglycemia Seasonal allergies Surgical History History of cardiac cath Hx of tonsillectomy Family History Other No significant family history Social History (Updated 09/21/24 @ 11:09 by Alirio Sanderson CRNA) Smoking Status: Current every day smoker alcohol intake: never substance use type: denies use current occupational status: unemployed Travel in the last 8 weeks: None caffeine: Yes Have you lived/traveled outside [place] in past 30 days?: No Contact w/someone who lives/traveled outside US past 30 days?: No Exposure to someone with infectious disease in past 14 days?: No Do you have a fever (greater than 100.4 F or 38 C)?: No Have you tested positive for COVID-19: No Exposed to someone with COVID-19 in past 14 days?: No Do you have a sore throat?: No Do you have a cough?: No Do you have any weakness?: No Are you experiencing any nausea/vomitting?: No Do you have any diarrhea?: No Are you experiencing any unusual bleeding?: No Do you have any muscle aches/pain?: No Do you have any abdominal pain?: No Are you experiencing loss of taste or smell?: No Other Medical History Have you received the Flu Vaccine for this season: No Have you received the Pneumonia Vaccine: No Review of Systems Review of Systems Review of systems (narrative): Negative *Cardiovascular Comments: Negative *Gastrointestinal Comments: Negative *Genitourinary Comments: Negative *Musculoskeletal Comments: Negative *Neurologic Comments: Negative Meds Home Medications and Allergies Home Medications ?Medication ?Instructions ?Recorded ?Confirmed ?Type sodium,potassium,mag sulfates 17.5 See Rx Instructions PO .COMPLEX 08/07/24 09/20/24 Rx gram-3.13 gram-1.6 gram oral soln #354 mL (Suprep Bowel Prep Kit) New Prescriptions to Start Prescriptions: Allergies Allergy/AdvReac Type Severity Reaction Status Date / Time sulfamethoxazole (From Allergy Rash Verified 09/21/24 10:39 ) trimethoprim (From ) Allergy Rash Verified 09/21/24 10:39 Exam Data for Last 24 hours Vital signs and Labs for Last 24 Hours: Temp Pulse Resp BP Pulse Ox O2 Del Method 97.8 F 51 L 18 122/75 99 Room Air 09/21/24 10:40 09/21/24 10:40 09/21/24 10:40 09/21/24 10:40 09/21/24 10:40 09/21/24 10:40 I & O for Last 24 hours: Intake & Output 09/18/24 09/19/24 09/20/24 09/21/24 23:59 23:59 23:59 23:59 Weight 130 lb *Routine HEENT Exam Head: Present normocephalic Eye: Present EOMI and PERRL ENT: Present mucous membranes moist *Routine Neck Exam Neck: Present supple *Routine Respiratory Exam Respiratory: Present CTA bilaterally *Routine Cardiovascular Exam Cardiovascular: Present RRR *Routine Abdominal Exam Abdominal: Present soft and normoactive bowel sounds; Absent tenderness *Routine Rectal Exam Rectal:: deferred *Routine Genitalia Exam Genitalia:: deferred *Routine Extremities Exam Extremities: Absent cyanosis, clubbing or edema *Routine Skin Exam Skin: Present warm; Absent rash *Routine Neurological Exam Neurological: Present alert and oriented X3 Assessment and Plan *Assessment and plan (1) LUQ pain: Status: Acute Category: Medical Code(s): R10.12 - Left upper quadrant pain (2) Bloating: Status: Acute Category: Medical Code(s): R14.0 - Abdominal distension (gaseous) (3) Flatulence, eructation and gas pain: Status: Acute Category: Medical Code(s): R14.3 - Flatulence; R14.1 - Gas pain; R14.2 - Eructation Plan A/P: 1. Left upper quadrant abdominal pain with bloating is the preprocedural diagnosis. The patient will be anesthetized/sedated using MAC sedation. The patient has been seen and examined. Cardiac and lung assessment prior to the examination is stable. Proceed with planned diagnostic colonoscopy
--- NOTE | 2024-09-21 11:47 | P.PCN_ITS ---
[facility] Procedure Note Date: 09/21/24 Time: 12:17 Procedure Note:: Colonoscopy Procedure Report: Colonoscopy with cold snare polypectomy Endoscopist: Tong John II, MD Referring physician: JAMES Brown Date of Procedure: September 21, 2024 Equipment: Olympus 190 variable stiffness pediatric colonoscope Sedation: MAC sedation Indication: Mr. Caballero is a 49-year-old gentleman who is here for diagnostic colonoscopy. He has had epigastric, left upper quadrant, right upper quadrant and generalized abdominal pain. He also has moderate bloating, gassiness and belching. He reports normal bowel function. He reports no rectal bleeding, weight loss or family history of colon cancer. Procedure: Prior to the procedure, a history and physical exam was performed, and patient's medications and allergies were reviewed. The risks, benefits and alternatives of the sedation and procedure were discussed with the patient. All questions were answered and informed consent was obtained. The patient was brought to the procedure room. Patient identification and proposed procedure were verified by the physician and the nurse. The patient was placed in a left lateral decubitus position and the scope was passed under direct vision. Throughout the procedure, the patient's blood pressure, pulse, and oxygen saturations were monitored continuously. The colonoscopy was accomplished without difficulty. The patient tolerated the procedure well. Findings: On digital rectal examination there was normal rectal tone. There were no external hemorrhoids. The colonoscope was introduced through the anal canal to the rectum and advanced to the cecum. The ileocecal valve and appendiceal orifice were identified. The scope was advanced a short distance into the ileum which appeared grossly normal. The scope was then withdrawn into the colon. There were 3 polyps (descending x 2 (4 and 4 mm) and sigmoid x 1 (4 mm)). These were all removed via cold snare polypectomy. The remaining cecum, ascending, transverse, descending, sigmoid and rectum were grossly normal. There were no other mucosal abnormalities identified. Upon retroflexion within the rectum there were grade 1-2 internal hemorrhoids. The preparation was excellent throughout with [place] Preparation Score of 9. The cecal time was 12 minutes. Impression: 1. Diminutive colonic polyps x 3 2. Grade 1-2 internal hemorrhoids Plan: I will follow-up the polyp histology and recommend repeat surveillance col onoscopy again in 5 years if the polyps are adenomatous. I do feel that the patient does have some obstipation/incomplete defecation. His CAT scan in July 2024 showed fecal retention. I am going to place patient on a fiber bowel regimen. I also feel that he has some functional abdominal pain and we will discuss neuromodulation treatment. We will discuss dietary measures and treatment options.
== END 2024-09-21 13:00 | disposition home or self-care (01) ==
PROVIDERS: PCP Nurse Practitioner Family; Visit Provider Internal Medicine Gastroenterology
PROC: 0DJD8ZZ Inspection of Lower Intestinal Tract, Via Natural or Artificial Opening Endoscopic (ICD-10-PCS; CPT 45378; principal; 2024-09-21 11:30)
DX: K63.5 Polyp of colon (principal); K64.8 Other hemorrhoids; R10.12 Left upper quadrant pain; R14.0 Abdominal distension (gaseous); R10.9 Unspecified abdominal pain; R14.2 Eructation
CPT/HCPCS: 45385; J7120

== ENCOUNTER 2025-04-30 07:21 | Outpatient (CLI) | payer OTHER, SELFPAY ==
--- OUTSIDE RECORDS SUMMARY | 2025-04-17 08:20 | XMS_ITS | Continuity of Care Document ---
Author Organization [facility] Address [address] [place] [address] Phone Care Team Providers Care Manifold Operator Name Role Phone Grady MSN, AVIATION PROJECT ENGINEER, Rupal Unavailable Unavai lable Allergies, Adverse Reactions, Alerts Substance Reaction Status Criticality trimethoprim Unknown Active No Information sulfamethoxazole Unknown Active No Informat ion Medications Medication Instructions Dosage Effective Dates (start - stop) Status Comments FEXOFENADINE HYDROCHLORIDE 180MG TABLET TAKE ONE (1) TABLET BY ORAL ROUTE EVERY DAY - Active fluticasone propionate 50 mcg/actuation nasal spray,suspension spray 1 - 2 spray by intranasal route every day in each nostril as needed 50-100 MCG - Active DULOXETINE HYDROCHLORIDE DR 30MG DR CAPSULE DR PART TAKE ONE (1) CAPSULE BY ORAL ROUTE EVERY DAY - Active Topicort 0.05 % topical ointment apply by topical route 2 times every day a thin layer to the affected area(s) ; rub in gently and completely 0.00 - Active Pepcid AC 20 mg tablet take 1 tablet by oral route 2 times every day 20 MG - Active mupirocin 2 % topical ointment apply by topical route 2 times every day a small amount to the affected area Not Available - Active hydrocortisone 1 % topical cream apply by topical route 2 times every day a thin layer to the affected area(s) 0.00 - Active pantoprazole 40 mg tablet,delayed release take 1 tablet by oral route every day 40 MG - Active methocarbamol 750 mg tablet take 1 tablet by oral route 3 times every day 750 MG - Active simethicone 80 mg chewable tablet take one tablet every 8 hrs as needed for gas - Active Advance Directives Directive Yes / No Effective Date File Name No Information Encounters Encounter Description Practice Location Reason(s) For Visit Diagnoses Date Provider [facility], [address] [place] [address], [facility], tel:[phone] [facility] [place] No Information [address] [place], [place], [id number] , [place]. tel:[phone] [facility], [address] [place] [address], [facility], tel:[phone] [facility] [place] neck pain/joint pains (chief complaint)s kin tag (chief complaint) CervicalgiaCervicogenic headachePain in unspecified jointNevus, non-neoplasticOther hypertrophic disorders of the skin 5 [address] [place], [place], [id number] , [place]. tel: [phone] [facility], [address] [place] [address], [facility], tel:[phone] [facility] [place] head/chest and neck pain (chief complaint) CervicalgiaCervicogenic headacheSinusitis 5 [address] [place], [place], [id number] , [place]. tel:[phone] [facility], [address] [place] [address], [facility], [place] tel:[phone] [facility] [place] No Information [address] [place], [place], [id number] , [place]. tel:[phone] [facility], [address] [place] [address], [facility], tel:[phone] [facility] [place] Insect Bites (chief complaint) Body mass index [BMI] 22.0-22.9, adultInsect bite (nonvenomous), left ankle, initial encounterInsect bite (nonvenomous), right ankle, initial encounterPruritus, unspecified 5 [address] [place], [place], [address] [place] [address] , . tel: [phone] [facility], [address] [place] [address], [facility], tel:[phone] [facility] [place] No Information [address] [place], [place], [address] [place] [address] , . tel: [phone] [facility], [address] [place] [address], [facility], tel:[phone] [facility] [place] lab collection (chief complaint) Hyperlipidemia 5 [address] [place] [address], [address] [place] [address] , . tel: [phone] [facility], [address] [place] [address], [facility], tel:[phone] [facility] [place] Depression screening (chief complaint)P rapare (chief complaint)o ther (chief complaint) Extreme povertyLess than a high school diplomaEncounter for screening for depressionBody mass index [BMI] 22.0-22.9, adultCervicalgiaBack painPain in left shoulder 5 [address] [place], [place], [address] [place] [address] , . tel: [phone] [facility], [address] [place] [address], [facility], tel:[phone] [facility] [place] No Information 5 [address] [place], [place], [id number] , [place]. tel:[phone] [facility], [address] [place] [address], [address], [place] tel:[phone] [facility] [place] Telehealth (chief complaint)F ollow up on Gastric Pain (chief complaint) Back painGERD disease w/ esophagitis, w/o bleedingConstipation, unspecified 5 [address] [place], [place], [id number] , [place]. tel: [phone] [facility], [address] [place] [address], [facility], [place] tel:[phone] [facility] [place] Disorder of kidney and ureter, unspecified 4 [address] [place], [place], [id number] , [place]. tel: [phone] [facility], [address] [place] [address], [address], [place] tel:[phone] [facility] [place] thorasic back pain (chief complaint) Back painCervicalgiaGERD disease w/ esophagitis, w/o bleeding 4 [address] [place], [place], [id number] , [place]. tel:[phone] [facility], [address] [place] [address], [address], [place] tel:[phone] [facility] [place] Cervicalgia 4 [address] [place], [place], [id number] , [place]. tel: [phone] [facility], [address] [place] [address], [address], [place] tel:[phone] [facility] [place] ER f/u (chief complaint) CervicalgiaBack painBody mass index [BMI] 21.0-21.9, adultGERD disease w/ esophagitis, w/o bleedingUnstable angina 4 [address] [place], [place], [id number] , . tel:[phone] [facility], [address] [place] [address], [facility], tel:[phone] [facility] [place] er f/u chest pain (chief complaint) Disorder of kidney and ureter, unspecifiedBody mass index [BMI] 21.0-21.9, adultGERD disease w/ esophagitis, w/o bleedingHyperlipidemiaLU Q painCOPDPain in left shoulder 4 [address] [place], [place], [id number] , [place]. tel:[phone] [facility], [address] [place] [address], [facility], tel:[phone] [facility] [place] all over pain (chief complaint) GERD disease w/ esophagitis, w/o bleedingLUQ painChest painBody mass index [BMI] 21.0-21.9, adult Apr- 4 [address] [place], [place], [id number] , [place]. tel:[phone] [facility], [address] [place] [address], [facility], [place] tel:[phone] [facility] [place] fOLLOW UP ON LABS (chief complaint) Body mass index [BMI] 22.0-22.9, adultHyperlipidemia November- 2- 4 [address] [place], [place], [id number] , [place]. tel:[phone] [facility], [address] [place] [address], [address], [place] [phone] [facility] FASTING LABS (chief complaint) Encounter for screening for diseases of the blood and blood-forming organs and certain disorders involving the immune mechanism 4 Grady Goldsmith. [address] [place], [place], [id number] , [place]. tel: [phone] [facility], [address], [place], [facility], [phone] [facility] Upper Gastric Pain (chief complaint) Extreme povertyUnemployment, unspecifiedEncounter for screening for depressionBody mass index [BMI] 21.0-21.9, adultGERD disease w/ esophagitis, w/o bleeding 4 Rasmussenbh[address]ti Goldsmith. [address] [place], [place], [id number] , [place]. tel: [phone] Family History Family Member Type Diagnosis Age At Onset Father Problem Substance Abuse Daughter Problem Alive and well Daughter Problem Alive and well Mother Problem Fibromyalgia, anxiety Son Problem Alive and well Sister Problem Alive and well Maternal grandmother Problem healthy, passed from natrual causes Brother Problem Alive and well Paternal grandmother Problem Diabetes mellitus Paternal grandfather Problem Alcoholism Sister Problem Alive and well Son Problem Alive and well Sister Problem Alive and well Maternal grandfather Problem Alcoholism Sister Problem Alive and well Mother Problem Alive and well Immunizations Vaccine Date Status Comments Influenza virus vaccine, trivalent (IIV3), split virus, preservative free, 0.5 mL dosage, for intramuscular use administered Source: Melody w Immunization Record Payers Payer name Insurance type Covered democrat ID Authoriza tion(s) [facility], Located [facility]- Medicaid Aetna [facility] CI [id number] [facility], Loc[facility]- Medicaid Aetna Wrap Payer [id number] Social History Type Description Quantity Date Captured Comments Sex Male Smoking Status No Information Sexual Orientation Straight or heterosexual Oct Gender Identity Male Chief Complaint And Reason For Visit No Information Plan Of Treatment Date Type Action Status Goal Lipid panel. Due on due Goal Hemoglobin (Pree gerri/HR 9 months). Due on due Goal Hematocrit/Hemog lobin. Due on due Goal Taking Aspirin o r other anti-coagulant. Due on due Goal Unhealthy drug use screening due Goal Tobacco Use Scre ening. Due on due Goal Vitamin D. Due on due Goal Hepatitis C Screening due Goal Vitamin B12. Due on due Goal Drug Abuse Scree marie Test (DAST-10). Due on due Goal CMP. Due on due Goal Depression scree marie. Due on due Goal Generalized Anxi ety Disorder - 7 (ZITA-7). Due on due Goal Tobacco Use Cess ation Counseling. Due on due Goal CBC. Due on due Goal HIV screen due Goal Obtain Height, W eight, and BMI. Due on due Goal Diabetes screening. Due on A due Goal Influenza vaccine. Due on Oc due Goal Tobacco screening. Due on Oc due Goal Lipid panel. Due on due Goal Hemoglobin (Pree gerri/HR 9 months). Due on due Goal Hematocrit/Hemog lobin. Due on due Goal Taking Aspirin o r other anti-coagulant. Due on due Goal CMP. Due on due Goal Vitamin B12. Due on due Goal Depression scree marie. Due on due Goal Influenza vaccine. Due on Se due Goal Tobacco Use Cess ation Counseling. Due on due Goal Obtain Height, W eight, and BMI. Due on due Goal Drug Abuse Scree marie Test (DAST-10). Due on due Goal Hepatitis C Screening due Goal Diabetes screening. Due on A due Goal Tobacco screening. Due on Oc due Goal Tobacco Use Scre ening. Due on due Goal CBC. Due on due Goal Unhealthy drug use screening due Goal Vitamin D. Due on due Goal HIV screen due Goal Generalized Anxi ety Disorder - 7 (ZITA-7). Due on due Goal Lipid panel. Due on due Goal Tobacco Use Scre ening. Due on due Goal Depression scree marie. Due on due Goal Vitamin B12. Due on due Goal CBC. Due on due Goal Generalized Anxi ety Disorder - 7 (ZITA-7). Due on due Goal Vitamin D. Due on due Goal Tobacco Use Cess ation Counseling. Due on due Goal Obtain Height, W eight, and BMI. Due on due Goal Taking Aspirin o r other anti-coagulant. Due on due Goal Hepatitis C Screening due Goal Diabetes screening. Due on A due Goal Tobacco screening. Due on due Goal HIV screen due Goal CMP. Due on due Goal Unhealthy drug use screening due Goal Drug Abuse Scree marie Test (DAST-10). Due on due Goal Influenza vaccine. Due on due Goal Lifestyle education regardin g diet completed Goal Lipid panel. Due on 026 due Goal Taking Aspirin o r other anti-coagulant. Due on due Goal Drug Abuse Scree marie Test (DAST-10). Due on due Goal Depression scree marie. Due on due Goal Hepatitis C Screening due Goal Vitamin D. Due on due Goal Tobacco Use Scre ening. Due on due Goal Diabetes screening. Due on A due Goal CBC. Due on due Goal Unhealthy drug use screening due Goal Obtain Height, W eight, and BMI. Due on due Goal Vitamin B12. Due on 025 due Goal Influenza vaccine. Due on due Goal Generalized Anxi ety Disorder - 7 (ZITA-7). Due on due Goal Tobacco Use Cess ation Counseling. Due on due Goal HIV screen due Goal Tobacco screening. Due on due Goal CMP. Due on due Goal Lipid panel. Due on due Goal Generalized Anxi ety Disorder - 7 (ZITA-7). Due on due Goal CMP. Due on due Goal Vitamin D. Due on due Goal HIV screen due Goal Depression scree marie. Due on due Goal Tobacco Use Cess ation Counseling. Due on due Goal Tobacco Use Scre ening. Due on due Goal CBC. Due on due Goal Diabetes screening. Due on A due Goal Influenza vaccine. Due on due Goal Unhealthy drug use screening due Goal Vitamin B12. Due on due Goal Hepatitis C Screening due Goal Tobacco screening. Due on due Goal Obtain Height, W eight, and BMI. Due on due Goal Drug Abuse Scree marie Test (DAST-10). Due on due Goal Taking Aspirin o r other anti-coagulant. Due on due Goal Lipid panel. Due on due Goal Taking Aspirin o r other anti-coagulant. Due on due Goal Tobacco Use Scre ening. Due on due Goal Vitamin D. Due on due Goal CBC. Due on due Goal Unhealthy drug use screening due Goal Hepatitis C Screening due Goal Tobacco Use Cess ation Counseling. Due on due Goal HIV screen due Goal Vitamin B12. Due on due Goal Diabetes screening. Due on A due Goal Influenza vaccine. Due on Ap due Goal Tobacco screening. Due on Fe due Goal Obtain Height, W eight, and BMI. Due on due Goal Generalized Anxi ety Disorder - 7 (ZITA-7). Due on due Goal CMP. Due on due Goal Depression scree marie. Due on due Goal Drug Abuse Scree marie Test (DAST-10). Due on due Goal Lipid panel. Due on due Goal Taking Aspirin o r other anti-coagulant. Due on due Goal CMP. Due on due Goal Drug Abuse Scree marie Test (DAST-10). Due on due Goal Unhealthy drug use screening due Goal Influenza vaccine. Due on Ma due Goal Vitamin B12. Due on due Goal Hepatitis C Screening due Goal Tobacco Use Scre ening. Due on due Goal Obtain Height, W eight, and BMI. Due on due Goal CBC. Due on due Goal HIV screen due Goal Tobacco screening. Due on due Goal Generalized Anxi ety Disorder - 7 (ZITA-7). Due on due Goal Tobacco Use Cess ation Counseling. Due on due Goal Depression scree marie. Due on due Goal Vitamin D. Due on due Goal Diabetes screening. Due on A due Goal Lifestyle education regardin g diet completed Goal Taking Aspirin o r other anti-coagulant. Due on due Goal CMP. Due on due Goal CBC. Due on due Goal Tobacco Use Cess ation Counseling. Due on due Goal Obtain Height, W eight, and BMI. Due on due Goal Vitamin D. Due on due Goal CT-Colonography. Due on due Goal Influenza vaccine. Due on due Goal FOBT. Due on due Goal HIV screen due Goal Vitamin B12. Due on 025 due Goal Generalized Anxi ety Disorder - 7 (ZITA-7). Due on due Goal Lipid panel. Due on 029 due Goal Tobacco Use Scre ening. Due on due Goal FIT-DNA. Due on due Goal Depression scree marie. Due on due Goal Diabetes screening. Due on A due Goal Hepatitis C Screening due Goal Colonoscopy. Due on due Goal Unhealthy drug use screening due Goal FIT. Due on due Goal Drug Abuse Scree marie Test (DAST-10). Due on due Goal Taking Aspirin o r other anti-coagulant. Due on due Goal Vitamin B12. Due on due Goal Hepatitis C Screening due Goal Tobacco Use Scre ening. Due on due Goal Tobacco Use Cess ation Counseling. Due on due Goal Unhealthy drug use screening due Goal CMP. Due on due Goal Generalized Anxi ety Disorder - 7 (ZITA-7). Due on due Goal Obtain Height, W eight, and BMI. Due on due Goal Influenza vaccine. Due on due Goal Vitamin D. Due on due Goal Depression scree marie. Due on due Goal CBC. Due on due Goal HIV screen due Goal Colonoscopy. Due on due Goal FOBT. Due on due Goal Lipid panel. Due on due Goal Diabetes screening. Due on A due Goal Drug Abuse Scree marie Test (DAST-10). Due on due Goal Taking Aspirin o r other anti-coagulant. Due on due Goal CMP. Due on due Goal Depression scree marie. Due on due Goal Drug Abuse Scree marie Test (DAST-10). Due on due Goal Unhealthy drug use screening due Goal FOBT. Due on due Goal Vitamin D. Due on due Goal Vitamin B12. Due on due Goal Diabetes screening. Due on A due Goal Colonoscopy. Due on due Goal Lipid panel. Due on due Goal Generalized Anxi ety Disorder - 7 (ZITA-7). Due on due Goal Influenza vaccine. Due on due Goal Tobacco Use Cess ation Counseling. Due on due Goal Tobacco Use Scre ening. Due on due Goal Obtain Height, W eight, and BMI. Due on due Goal CBC. Due on due Goal Hepatitis C Screening due Goal HIV screen due Goal Taking Aspirin o r other anti-coagulant. Due on due Goal Hepatitis C Screening due Goal Tobacco Use Cess ation Counseling. Due on due Goal Vitamin B12. Due on due Goal Tobacco Use Scre ening. Due on due Goal Diabetes screening. Due on A due Goal Unhealthy drug use screening due Goal HIV screen due Goal Colonoscopy. Due on due Goal Influenza vaccine. Due on No due Goal FOBT. Due on due Goal Drug Abuse Scree marie Test (DAST-10). Due on due Goal Generalized Anxi ety Disorder - 7 (ZITA-7). Due on due Goal Obtain Height, W eight, and BMI. Due on due Goal CMP. Due on due Goal CBC. Due on due Goal Depression scree marie. Due on due Goal Lipid panel. Due on 029 due Goal Vitamin D. Due on due Goal Taking Aspirin o r other anti-coagulant. Due on due Goal Influenza vaccine. Due on due Goal Tobacco Use Scre ening. Due on due Goal Generalized Anxi ety Disorder - 7 (ZITA-7). Due on due Goal Obtain Height, W eight, and BMI. Due on due Goal Tobacco Use Cess ation Counseling. Due on due Goal Drug Abuse Scree marie Test (DAST-10). Due on due Goal CBC. Due on due Goal Unhealthy drug use screening due Goal CMP. Due on due Goal Vitamin B12. Due on due Goal FOBT. Due on due Goal HIV screen due Goal Lipid panel. Due on due Goal Colonoscopy. Due on due Goal Depression scree marie. Due on due Goal Hepatitis C Screening due Goal Vitamin D. Due on due Goal Diabetes screening. Due on A due Goal Lifestyle education regardin g diet completed Goal Drug Abuse Scree marie Test (DAST-10). Due on due Goal Tobacco Use Scre ening. Due on due Goal Influenza vaccine. Due on due Goal Tobacco Use Cess ation Counseling. Due on due Goal Obtain Height, W eight, and BMI. Due on due Goal Generalized Anxi ety Disorder - 7 (ZITA-7). Due on due Goal FOBT. Due on due Goal Unhealthy drug use screening due Goal CMP. Due on due Goal Depression scree marie. Due on due Goal Diabetes screening. Due on A due Goal HIV screen due Goal Vitamin D. Due on due Goal CBC. Due on due Goal Hepatitis C Screening due Goal Lipid panel. Due on due Goal Colonoscopy. Due on due Goal Vitamin B12. Due on due Goal Lifestyle education regardin g diet completed Goal Generalized Anxi ety Disorder - 7 (ZITA-7). Due on due Goal CMP. Due on due Goal HIV screen due Goal Lipid panel. Due on due Goal Obtain Height, W eight, and BMI. Due on due Goal FOBT. Due on due Goal Hepatitis C Screening due Goal Diabetes screening. Due on A due Goal Depression scree marie. Due on due Goal Colonoscopy. Due on due Goal Vitamin D. Due on due Goal Influenza vaccine. Due on due Goal Unhealthy drug use screening due Goal Vitamin B12. Due on due Goal Tobacco Use Cess ation Counseling. Due on due Goal Drug Abuse Scree marie Test (DAST-10). Due on due Goal Tobacco Use Scre ening. Due on due Goal CBC. Due on due Goal Lifestyle education regardin g diet completed Goal Tobacco cessation counseling completed Goal Vitamin B12. Due on due Goal Drug Abuse Scree marie Test (DAST-10). Due on due Goal FOBT. Due on due Goal Colonoscopy. Due on due Goal Lipid panel. Due on 029 due Goal Obtain Height, W eight, and BMI. Due on due Goal HIV screen due Goal CMP. Due on due Goal Diabetes screening. Due on A due Goal CBC. Due on due Goal Tobacco Use Cess ation Counseling. Due on due Goal Hepatitis C Screening due Goal Vitamin D. Due on due Goal Influenza vaccine. Due on due Goal Tobacco Use Scre ening. Due on due Goal Unhealthy drug use screening due Goal Generalized Anxi ety Disorder - 7 (ZITA-7). Due on due Goal Depression scree marie. Due on due Goal Lifestyle education regardin g diet completed Goal Unhealthy drug use screening due Goal Tobacco Use Scre ening. Due on due Goal Drug Abuse Scree marie Test (DAST-10). Due on due Goal Colonoscopy. Due on 024 due Goal Generalized Anxi ety Disorder - 7 (ZITA-7). Due on due Goal Tobacco Use Cess ation Counseling. Due on due Goal Vitamin D. Due on due Goal FOBT. Due on due Goal CT-Colonography. Due on due Goal Diabetes screening. Due on A due Goal Vitamin B12. Due on due Goal FIT. Due on due Goal FIT-DNA. Due on due Goal Obtain Height, W eight, and BMI. Due on due Goal Lipid panel. Due on due Goal CMP. Due on due Goal HIV screen due Goal Hepatitis C Screening due Goal Depression scree marie. Due on due Goal CBC. Due on due Goal CBC. Due on due Goal Depression scree marie. Due on due Goal Hepatitis C Scre ening. Due on due Goal HIV screen. Due on due Goal CMP. Due on due Goal Lipid panel. Due on due Goal Obtain Height, W eight, and BMI. Due on due Goal FIT-DNA. Due on due Goal FIT. Due on due Goal Vitamin B12. Due on due Goal Diabetes screening. Due on A due Goal CT-Colonography. Due on due Goal FOBT. Due on due Goal Vitamin D. Due on due Goal Tobacco Use Cess ation Counseling. Due on due Goal Generalized Anxi ety Disorder - 7 (ZITA-7). Due on due Goal Colonoscopy. Due on 024 due Goal Follow up Plan f or abnormal BMI (Less than 18.5, greater than 25). Due on due Goal Drug Abuse Scree marie Test (DAST-10). Due on due Goal Influenza vaccine. Due on Ap due Goal Tobacco Use Scre ening. Due on due Goal Unhealthy drug use screening due Goal Lifestyle education regardin g diet completed Goal Tobacco cessation counseling completed Referral Referred To: [facility] Ordered: Referrals: Rheumatology. Rheumatology. Location: [place]. Evaluate and treat Appointment date/timeframe: 05/22/2025 ordered Referral Ordered: MRI NECK SPINE W/O & W/DYE Left neck Appointment date/timeframe: 04/30/2025 ordered Referral Ordered: MRI NECK SPINE W/O & W/DYE Bilateral c and t spine Appointment date/timeframe: 1 Week ordered Referral Ordered: MRI JOINT UPR EXTR W/O&W/DYE Left shoulder Appointment date/timeframe: 1 Week ordered Referral [facility] Ordered: Referrals: Neurology. [facility]. Location: [place]. Diagnostic testing Appointment date/timeframe: 12/11/2024 ordered Referral Ordered: MRI ABDOMEN W/O & W/DYE Right kidney Appointment date/timeframe: 06/23/2024 ordered Referral Ordered: MRI CHEST SPINE W/O & W/DYE Bilateral spine, thoracic Appointment date/timeframe: 2 Weeks ordered Referral Ordered: X-RAY EXAM OF NECK SPINE Bilateral Neck Appointment date/timeframe: 06/07/2024 ordered Referral Ordered: X-RAY EXAM OF THORACIC SPINE Bilateral neck Appointment date/timeframe: 05/15/2024 ordered Referral Ordered: Referrals: Gastroenterology. Evaluate and treat Appointment date/timeframe: 08/09/2024 ordered Referral Ordered: MRI PELVIS W/O & W/DYE Right kidney Appointment date/timeframe: 07/07/2024 ordered Referral Ordered: US EXAM, ABDOM, COMPLETE Left abdomen Appointment date/timeframe: 05/04/2024 ordered Referral Ordered: CARDIOVASCULAR STRESS TEST Left chest Appointment date/timeframe: 05/04/2024 ordered Future Order: Lab Order Magnesiu m, Serum ([id number]), Ordered on: Ordered Future Order: Lab Order TITO w/Re flex if Positive ([id number]), Collected on: Ordered Future Order: Lab Order Anemia P rofile B ([id number]), Collected on: Ordered Future Order: Lab Order Comp. Me tabolic Panel (14) ([id number]), Collected on: Ordered Future Order: Lab Order C-Reacti ve Protein, Quant ([id number]), Collected on: Ordered Future Order: Lab Order Insulin ([id number]), Collected on: Ordered Future Order: Lab Order Lipid Pa jessenia ([id number]), Collected on: Ordered Future Order: Lab Order Lyme, We lucia Blot, Serum ([id number]), Collected on: Ordered Future Order: Lab Order Sediment ation Rate-Westergren ([id number]), Collected on: Ordered Future Order: Lab Order Juan Ia n Spotted Fever Group Antibodies, IgG, IgM ([id number]), Collected on: Ordered Future Order: Lab Order Rheumato id Arthritis Factor ([id number]), Collected on: Ordered Future Order: Lab Order TSH Rfx on Abnormal to Free T4 ([id number]), Collected on: Ordered Future Order: Lab Order Uric Aci d, Serum ([id number]), Collected on: Ordered Future Order: Lab Order Vitamin D, 25-Hydroxy ([id number]), Collected on: Ordered History Of Present Illness Encounter Date Complaint History Of Prese nt Illness skin tag Sam reports sk in tag on left neck that gets in his way when shaving or dressing. Would like to have it removed. Consent was obtained prior to procedure. Skin tag removed and pt tolerated well. neck pain/joint pains Sam Is h ere today for continued neck/left arm pain and headaches. He has a MRI ordered for further work up but is waiting on insurance approval. This has been an ongoing work up since Mar 2024. He recently had a colonoscopy that was negative, and noncontributory to explanation of his pain. He has seen neurology, and I have completed work-up for rheumatoid arthritis in November. While his RF was negative, he continues to have joint pains in his neck, hands, elbows. He is requesting a referral to Rheumatology for further autoimmune work up. head/chest and neck pain Sam i s here today for continued pain in the chest, arms, neck and head.This is an on-going thing for him for the past year..He states his right eye is vibrating and he sees flashes. He has been to the ER and GI with negative work-up.Today the new complaints of dizziness and flashes of lights and facial pain on the right side. He has been coughing up phlegm for 2 weeks. Nasal congestion and cough.EMG and NCV findings all wnl-12/11/24 All F wave latencies wnlEMG exam of left arm and cervical paraspinal muscles increased insertional activity. It was recommended to have cervical spine MRI to rule out proximal nerve root lesion.With continued numbness in left arm that comes and goes, pain in his neck and axillary pain, I feel it is appropriate to proceed with the MRI. He had cervical xrays on 05/2024 that showed no acute process. His c/o joint aches/ pains in the left hand and elbow. Insect Bites Sam is here to day due to insect bites.This happens every summerthey are on his ankles, waist, forearms and behind his knees.They are red and itchyThis began 2 weeks ago. lab collection Sam is here to day to have fasting labs collected.3 tubes collected, tolerated wellambulated out of office in no apparent respiratory distress.RTC 2 weeks, f/u lab results Depression screening Depression screening completed 11/21/24. Pt scored 0, provider aware. -AW,CM Praparbill Prapare complete d 11/21/24. -AW,CM other stomach feels so me betterstill having gasses.head pain on left since Wednesday- took out 2 teethfeel like pain is in rt should and arm, starts in neck and goes down arm and headNo accident or injuryPain is daily, lasting 30-1 hrNothing helpsHas tried massage, ibuprofenHemp roll- helps someneck and thoracicleft elbow back into axillaThis pain began in Mar 2024He has had 3 ER visits, multiple office visits with me, xrays, MRI of pelvis, and also xrays of neck and spine.Conservative care for 6+ weeks of otc nsaids, Tylenol, PT have been ineffective in pain relief.MRI of C &T spineEMG of U extremityOrtho referralRTC after testingDuloxetine to see if aids in pain relief , decrease of anxietyHe states the pain is so bad, I feel like I am dying. PT completed colonoscopy- polyps-removed he is to repeat in 5 yearsStates his gases problem is so much better, no nvd. Telehealth Patient has verkenneth brand being in the [facility] and has given verbal consent to be treated via telehealth consultation. Today's visit is being completed via; telephonePatient provided full consent to use this technology. Patient was advised of the limitations of a telehealth visit via telephone. Provider completed this visit within her office. Patient's location during this visit-home, [address] [place] [id number]. Follow up on Gastric Pain Pt is having a follow up on his gastric pain today via telehealth.He was unable to make his office visit today.Pt was scheduled for Colonoscopy, but due to the timing was unable to have it completed.It was scheduled for 1 pm and states he could not go that long without eating.Sam reports he continues with the same type of gas pain that is in his abdomen.Belching is present.CT of abdomen scan in Jul 19, 2024 showed mild fecal impaction and otherwise unremarkable.MRI of Abdomen showed dominant right renal lesion compatible with a benign complex cyst. No evidence of renal obstruction or neoplasm.It was recommend to use a bulk forming laxative like metamucil or mirlax. May use colace as adjunt for stool softener.He denies constipation today- states is going daily, normal stool.He has not been using the above medications. He states his pain is present constantly.MRI of Thorasic Spine was denied by insurance, however may be useful to determine any neurological envolment causing patient's reported symptoms.Plan is to proceed with the colonoscopy and f/u w/ GI. Contine using metamucil daily for regular bowel movements and decreased symptoms of constipation.Increase water consumption.RTC after colonoscopy if pain continues. thorasic back pain Sam is here today for f/u on his recent c and t spine xrays, continued pain in left arm/shoulder/chestHe had another episode of this crushing/sharp pain in his upper left arm/chest just this Wednesday that caused him to faint from the pain.He did not go back to the ER. He did go to his GI appointment and is going to have his colonoscopy and endoscopy complete on Jul 07.He is requesting a MRI of his thorasic spine as he feels it is a pinched nerve.He has been to caregivers homecare and this has helped some.He also has completed physical therapy which has helped some, but has not completely resolved his pain.He does request a refill on the pantoprazole for his GERD like symptoms xray of the cervical spine showed no acute processXray of the thorasic spine showed mild degenerative changes with mild rt curvature w/o acute bony abnormalities. ER f/u Sam is here to day for f/u for another ER visit on 05/11/24 to [facility] for chest pain.He had another episode of this crushing/sharp pain in his upper left arm/chest.He had a CT of head and neck, chest angio that were normal.EKG were unchangedCT was neg for PEHe was admitted to the hospital, consulted by cardiology and a cardiac cath was performed.Today he reports that nothing has changed.He still has the same epigastric/chest area painA referral was made to GI last week on the and he is scheduled for the at 9:30 for an intake appt.He continues on the pantoprazole that has minimally helped.Stress and anxiety has been discussed in the past.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 His neck, thorasic back and left shoulder pain also began around this time and is worse when cleaning out stalls in the barn in the past few weeks. The left shoulder/arm pain is described as a shooting/electrical pain.He feels it may be a pinched nerve. He has taken his 's robaxin once and reported a releife in his pain. Today his scapular muscles on the left are tense.I will order an xray of c and t spine and f/u in 2 weeks. He is to do ice and use muscle relaxant for the next few days to see if improved.Meanwhile- he will also get an MRI of his kidney to r/o maligant mass, as found on previous CT of abdomen, and recommend by the radiologist for further work-up. er f/u chest pain Siddhartha (Sam) is here today fro f/u on recent chest pain and anxiety. He went to the ER on 05/03/24 for cp and was diagnosed with unspecified chest pain and given pantoprazole 40 mg.He did have an exercise stress test on 05/04/24: Conclusion: Pt exercised 9.44 on on Damian protocolMax her 170% of PM 99%Makx BP 158/80Mets 11.5Test was stopped due to soa, fatigueno CPOcc PVC in recovery1.[address] depression inferiorlyEKG changes + for ischemia w/o chst painGXT only (no imaging)will plan to have a nuclear stress test completedUS of abdomen: impression was rt kidney lesion incompletely characterized. Recommend non-emergent MRICXR suggestive of possible COPD, no acute thorasic process.encouraged to stop smoking- he is working on thisToday he reports he continues to have pain in left shouler and arm that is a electric like/shocking pain steming from his left shoulder/neckleft shoulder pain and neck pain when cleaning out horse stalls about 1 month agohas taken his 's muscle relaxant and it helpedour most recent labs are as follows:Pre DM 5.7- hx of hypoglycemiaTotal cholesterol 256HDL 47LDL 193Trigs 94TSH wnl.Reports he has cut back on coffee, pepsi and smokingheadache started right after around the base of neck and top of head.Possibly nicotine/caffeine withdrawlbetter todaydenies blurred visionstill has epigastric discomfort- protonix is helping some erupticationGI referral made to today for endoscopy and possible screening colonoscopyRTC 1 month after GI consult and MRI results available. all over pain Sam Carl i s here today for pain that began 2 days ago.I was in his back and up his neck, epigastric area. He has had some LUQ abdominal pain as well.His called 911 and was evaluated 2 days ago They did an EKG and BS that was all normal. 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 gas +no diarrheano vomitinghas tried simethicone 80 mg w/o some reliefWill start omeprazole, and use famotidine PRN for rapid symptom relief. Will also order US of abd to r/u cholecocystitis, pancreatitis. Stress test ordered to r/o cardiac involvement.Labs collected todayRTC 2 weeks f/u labs and testingStart Buspirone PRN for new panic onset.personal 30+ pack hx of smokingcessation encouraged- not ready to quitContacted [place] CPT codes 42683 and 51932. I spoke with Elisabeth Peterson and the Ref# is [id number]. Neither CPT code requires a PA. -NICOLASA HAINES fOLLOW UP ON LABS Sam is here today to follow up on recent lab results.Overall labs are within normal limits except LDL is slightly elevated.Total Cholesterol 199, LDL 135, HDL 48, and Trig 69. A1C 5.4Neg Hep/HIVVit D, B12 wnl.He voices no complaints at this time.RTC 1 year for routine physicalDiet modifications to decrease fried, greasy foods discussed and recommended. He voiced understanding of all. FASTING LABS SAM IS HERE TO DAY FOR FASTING LABS. SUCCESSFULLY COLLECTED 4 TUBES, PT TOLERATED WELL. PT IS SCHEDULED TO RTC IN 2 WEEKS TO FOLLOW UP ON LABS. Upper Gastric Pain Sam is a 49 yo male here today to establish care and for epigastric pain/belching x several months, but worse in the past week.He perport pain is in upper mid chest, sometimes in the left and feels better after belching. It is not constant, worse after eating greasey/acidic foods. He has not taken anything for this.He states he has been seen last year at PCP Brett Mina MD, and all was normal.PMH/records reviewed: Hx of HLD- on atrovastatin but stopped after a short while not tolerating it well.Muscular chronic back pain- likely r/t strenuous job- lifting- responded well to caregivers homecare.1ppd cigarette smoker- continues this- not ready to quit- cessation and risks discussedhx of palpitations/- EKG 3.16.23 nonconcerningHas not had recent colonoscopy or screening- FOBT card to be given to pt next visitDue for PSA screening Instructions Date Instruction Additional Infor edith Keep wound clean and dry for 24 hours, then cleanse with soap and water gently. May apply bacitracin 2x daily for a few days. Wound check in 7 days, if concerns with healing. Related to Pain in unspecified joint Physical activity as tolerated. Try to engage in some form of moderate physical activity for 30 minutes most days of the week. May modify activity as needed to reduce discomfort. Try to achieve/maintain a healthy body weight to reduce strain on musculoskeletal system. Verbalizes an understanding. Related to Cervicogenic headache Patient instructed o n appropriate use of medications prescribed for neck pain. Discussed conservative measures such as heat, ice, gentle strength stretching, and core muscle strengthening. Avoid heavy lifting, pulling, or tugging. Contact the clinic if any worsening or new symptoms related to neck pain occur. Related to Cervicalgia Take all antibiotics until complete. May take with food to ease stomach irritation. If you experience frequent yeast infections, you may consider taking an OTC probiotic like culturell or align while taking antibiotics. Related to Sinusitis Continue to use chal omine lotion for itching or witch adair. Use topicort as instructed. May use Pepcid for itching as per instructions. May use mupirocin on bites that appear to be infected. RTC in 1 week if worse or no improvement. Related to Insect bite (nonvenomous), left ankle, initial encounter Giving encouragement to exercise Related to Body mass index [BMI] 22.0-22.9, adult Lifestyle education regarding di et Related to Body mass index [BMI] 22.0-22.9, adult Patient instructed o n appropriate use of medications prescribed for neck pain. Discussed conservative measures such as heat, ice, gentle strength stretching, and core muscle strengthening. Avoid heavy lifting, pulling, or tugging. Contact the clinic if any worsening or new symptoms related to neck pain occur. Related to Cervicalgia Giving encouragement to exercise Related to Body mass index [BMI] 22.0-22.9, adult Lifestyle education regarding di et Related to Body mass index [BMI] 22.0-22.9, adult Patient instructed o n appropriate use of medications prescribed for back pain. Discussed conservative measures such as heat, ice, gentle strength stretching, and core muscle strengthening. Avoid heavy lifting, pulling, or tugging. Contact the clinic if any worsening or new symptoms related to back pain occur. Related to Back pain Counseled patients o n medications for reflux. Discussed lifestyle modifications including but not limited to elevating the head of the bed, limiting fatty, greasy, spicy food intake. Avoid heavy meals and caffeine intake within 2 hours of bedtime. If applicable, reduce/discontinue tobacco use and/or alcohol use, as both can make reflux symptoms worse. Related to GERD disease w/ esophagitis, w/o bleeding High fiber diet. Inc rease water intake. Take any medications prescribed as directed. May use OTC medications prn for symptom relief. Related to Constipation, unspecified Counseled patients o n medications for reflux. Discussed lifestyle modifications including but not limited to elevating the head of the bed, limiting fatty, greasy, spicy food intake. Avoid heavy meals and caffeine intake within 2 hours of bedtime. If applicable, reduce/discontinue tobacco use and/or alcohol use, as both can make reflux symptoms worse. Related to GERD disease w/ esophagitis, w/o bleeding Patient instructed o n appropriate use of medications prescribed for back pain. Discussed conservative measures such as heat, ice, gentle strength stretching, and core muscle strengthening. Avoid heavy lifting, pulling, or tugging. Contact the clinic if any worsening or new symptoms related to back pain occur. Related to Back pain Physical activity as tolerated. Try to engage in some form of moderate physical activity for 30 minutes most days of the week. May modify activity as needed to reduce discomfort. Try to achieve/maintain a healthy body weight to reduce strain on musculoskeletal system. Verbalizes an understanding. Related to Body mass index [BMI] 21.0-21.9, adult Patient instructed t hat any chest pain or discomfort lasting longer than 5 minutes and flash or not relieved by Nitroglycerin warrants an urgent emergency room evaluation. Patient verbalized understanding.Keep your f/u appointment with Cardiology on May 24 at [facility] Related to Unstable angina Patient instructed o n appropriate use of medications prescribed for neck pain. Discussed conservative measures such as heat, ice, gentle strength stretching, and core muscle strengthening. Avoid heavy lifting, pulling, or tugging. Contact the clinic if any worsening or new symptoms related to neck pain occur.Do not drive while taking muscle relaxants. Related to Cervicalgia Patient instructed o n appropriate use of medications prescribed for back pain. Discussed conservative measures such as heat, ice, gentle strength stretching, and core muscle strengthening. Avoid heavy lifting, pulling, or tugging. Contact the clinic if any worsening or new symptoms related to back pain occur.Do not drive while taking muscle relaxants. Related to Back pain Counseled patients o n medications for reflux. Discussed lifestyle modifications including but not limited to elevating the head of the bed, limiting fatty, greasy, spicy food intake. Avoid heavy meals and caffeine intake within 2 hours of bedtime. If applicable, reduce/discontinue tobacco use and/or alcohol use, as both can make reflux symptoms worse. Related to GERD disease w/ esophagitis, w/o bleeding Giving encouragement to exercise Related to Body mass index [BMI] 21.0-21.9, adult Lifestyle education regarding di et Related to Body mass index [BMI] 21.0-21.9, adult Patient instructed t o stop smoking, avoid tobacco smoke, vaping and other environmental smoke exposure. Exertional activity as tolerated to maintain lung function. Discussed signs and symptoms with COPD exacerbation, patient instructed to contact the clinic if he or she shows any signs or symptoms of COPD exacerbation. Related to COPD Low fat, low cholest yue diet. Avoid fatty, fried, and greasy foods. Physical activity as tolerated. Counseled on risks of associated comorbidities, such as heart disease and stroke. Encouraged avoidance of tobacco products. Related to Hyperlipidemia Counseled patients o n medications for reflux. Discussed lifestyle modifications including but not limited to elevating the head of the bed, limiting fatty, greasy, spicy food intake. Avoid heavy meals and caffeine intake within 2 hours of bedtime. If applicable, reduce/discontinue tobacco use and/or alcohol use, as both can make reflux symptoms worse. Related to GERD disease w/ esophagitis, w/o bleeding Giving encouragement to exercise Related to Body mass index [BMI] 21.0-21.9, adult Lifestyle education regarding di et Related to Body mass index [BMI] 21.0-21.9, adult Dietary Instructions for a healthy weight: BMI should be between the range of 18.5-24.9 for an adult; and Caloric intake should be around 9265-8788 for a female, and 3590-2174 for an adult male. Fiber intake should be about 14 grams for 1000 calories per day. That is about 20-30 grams daily. Good sources of fiber are oatmeal, fortified grains, and green leafy vegetables, apples. You can also use Carbohydrate counting to maintain a healthy weight. One serving is equal to 15 grams (1 piece of bread, small fruit, or 1 cup of milk). Men should have 45-75, Women about 30-65 per meal, and snacks are recommend to be 13-30 grams each. [employer] is a good source for meal planning and dietary education. You may also refer to the [place] [employer] website for further low sodium, health heart diet information. Mediterainian diet would be a suitable diet for your current health conditions. Related to Body mass index [BMI] 21.0-21.9, adult Patient instructed t hat any chest pain or discomfort lasting longer than 5 minutes, or fainting warrants an urgent emergency room evaluation. Patient verbalized understanding. Related to Chest pain avoid eating greasy fried foodsGO to ER if you have increased pain, fainting, or continued chest pain that last longer than 5 minutes.US of abdomen ordered and to be completed this week if possibleRTC 2 weeks f/u results Related to LUQ pain Counseled patients o n medications for reflux. Discussed lifestyle modifications including but not limited to elevating the head of the bed, limiting fatty, greasy, spicy food intake. Avoid heavy meals and caffeine intake within 2 hours of bedtime. If applicable, reduce/discontinue tobacco use and/or alcohol use, as both can make reflux symptoms worse.US of abdomen orderedRTC in 2 weeks f/u test results and labs Related to GERD disease w/ esophagitis, w/o bleeding Giving encouragement to exercise Related to Body mass index [BMI] 21.0-21.9, adult Lifestyle education regarding di et Related to Body mass index [BMI] 21.0-21.9, adult Physical activity as tolerated. Try to engage in some form of moderate physical activity for 30 minutes most days of the week. May modify activity as needed to reduce discomfort. Try to achieve/maintain a healthy body weight to reduce strain on musculoskeletal system. Verbalizes an understanding. Related to Body mass index [BMI] 22.0-22.9, adult Low fat, low cholest yue diet. Avoid fatty, fried, and greasy foods. Physical activity as tolerated. Counseled on risks of associated comorbidities, such as heart disease and stroke. Encouraged avoidance of tobacco products. Related to Hyperlipidemia Giving encouragement to exercise Related to Body mass index [BMI] 22.0-22.9, adult Lifestyle education regarding di et Related to Body mass index [BMI] 22.0-22.9, adult Counseled patients o n medications for reflux. Discussed lifestyle modifications including but not limited to elevating the head of the bed, limiting fatty, greasy, spicy food intake. Avoid heavy meals and caffeine intake within 2 hours of bedtime. If applicable, reduce/discontinue tobacco use and/or alcohol use, as both can make reflux symptoms worse. Related to GERD disease w/ esophagitis, w/o bleeding Lifestyle education regarding di et Related to Body mass index [BMI] 21.0-21.9, adult Giving encouragement to exercise Related to Body mass index [BMI] 21.0-21.9, adult Assessments Type Assessment Date No Information
--- NOTE | 2025-04-30 | MR_ITS ---
FINAL REPORT CLINICAL HISTORY: PAIN COMPARISON: None FINDINGS: Multi planar MR imaging was obtained of the cervical spine with and without contrast. There is no significant abnormal decreased signal throughout the cervical discs. The vertebrae are of normal height. There is no malalignment. The cervical cord demonstrates normal signal and configuration. C2-C3: There is no evidence of significant disc bulge or protrusion. There is no significant facet hypertrophy. C3-C4: There is no evidence of significant disc bulge or protrusion. There is no significant facet hypertrophy. C4-C5: There is no evidence of significant disc bulge or protrusion. There is no significant facet hypertrophy. C5-C6: A mild annular bulge is present. There is no evidence of significant disc bulge or protrusion. There is no significant facet hypertrophy. C6-C7: There is no evidence of significant disc bulge or protrusion. There is no significant facet hypertrophy. C7-T1: There is no evidence of significant disc bulge or protrusion. There is no significant facet hypertrophy. There is no abnormal contrast enhancement. IMPRESSION: Minimal degenerative change of the cervical spine at the C5-6 level, otherwise unremarkable MRI of the cervical spine. Reviewed, Interpreted and Dictated by Krzysztof Blackman MD Transcribed by Selene Martin Authenticated and [facility]
--- OUTSIDE RECORDS SUMMARY | 2025-04-30 07:24 | XMS_ITS | Clinical Summary ---
Author Organization Healthcare Address [address] [place] [address] Care Team Providers Care Housecalls Nurse Name Role Phone Ximena Rasmussenissa Forrest RAZO Primary Care Provider [phone] Social History Tobacco Use Types Packs/Day Years Used Date Smoking Tobacco: Never Assessed Sex and Gender Information Value Date Recorded Sex Assigned at Not on file Legal Sex Male 1:24 PM EDT Gender Identity Not on file Sexual Orientation Not on file Plan of Treatment Upcoming Encounters Date Type Department Care Team (Late st Contact Info) Description 05/22/2025 1:15 PM EST Consult [facility] [address] [place] [address] Yareli Rubio, [address] [place] [address] Health Maintenance Due Date Last Done Comments [facility]-Depression Screening 1974 [facility]-HIV Screening 1974 [facility]-Hepatitis C Screening 1974 [facility]-Infant/Child/Adol SDOH Screenings 1974 [facility]- SDOH Screenings 1992 [facility]-Adult SDOH Screenings 1992 [facility]-DTaP,Tdap,and Td Vaccine s (1 - Tdap) 1993 [facility]-Hepatitis B Vaccines (1 of 3 - 19+ 3-dose series) 1993 CT Colonography 2019 Colonoscopy 2019 FIT-DNA 2019 FIT 2019 FOBT 2019 Sigmoidoscopy 2019 [facility]-Colorectal Cancer Screening 2019 [facility]-Pneumococcal Vaccine: 50 + Years (1 of 1 - PCV) 2024 [facility]-Zoster Vaccines (1 of 2) 2024 [id number] Vaccine (1 - 20 24-25 season) 2025 [facility]-Influenza Vaccine (#1) 2025 05/11/2024 HPV Vaccines Aged Out No longer eligi ble based on patient's age to complete this topic [facility]-HIB Vaccines Aged Out No longer e ligible based on patient's age to complete this topic [facility]-Hepatitis A Vaccines Aged Out No longer eligible based on patient's age to complete this topic [facility]-IPV Vaccines Aged Out No longer e ligible based on patient's age to complete this topic [facility]-Rotavirus Vaccines Aged Out No lo nger eligible based on patient's age to complete this topic Insurance [facility] MEDICAID Care Teams Housecalls Nurse Relationship Specialty Start Date End Date Rupal Rasmussen APRN [address] [place] [address] PCP - General 04/18/25
[2025-04-30] MEDS: SODIUM CHLORIDE 0.9% 10ML SYR (RAD ONLY) 10 ML IV (08:00)
[2025-04-30] MEDS: GADOTERIDOL INJ 20ML SYRINGE 12 ML IV (08:00)
== END 2025-04-30 23:59 | disposition home or self-care (01) ==
LOC: RAD 07:22
PROVIDERS: PCP Nurse Practitioner Family; Visit Provider Nurse Practitioner Family
DX: M47.812 Spondylosis without myelopathy or radiculopathy, cervical region (principal); G44.86 Cervicogenic headache
CPT/HCPCS: 72156; A9576

== ENCOUNTER 2025-06-26 13:03 | Outpatient (CLI) | payer OTHER, SELFPAY ==
--- OUTSIDE RECORDS SUMMARY | 2025-05-22 13:15 | XMS_ITS | Encounter Summary ---
Author Organization [facility] Address [address] [place] [address] Care Team Providers Care Warp Yarn Sorter Name Role Phone Rupal Rasmussen APRN Primary Care Provider [phone] Reason for Referral * Imaging (Routine) - Authorized Specialty Diagnoses / Procedures Referred By Contac t Referred To Contact Diagnoses Left-sided chest wall pain Chronic left shoulder pain Thoracic outlet syndrome of left thoracic outlet Procedures MR Brachial Plexus w and wo IV Contrast Yareli Rubio DO [address] [facility] [address] [place] [address] Phone: tel: fax: [facility] ([facility] [address] [place] [address] Phone: tel: fax: Referral ID Status Reason Start Date Expiration Date V isits Requested Visits Authorized [id number] Authorized 05/22/2025 11/21/2026 1 1 * Consultation (Routine) - Authorized Specialty Diagnoses / Procedures Referred By Contact Referred To Contact Cardiothoracic Surgery Diagnoses Polyarthralgia Left-sided chest wall pain Chronic left shoulder pain Thoracic outlet syndrome of left thoracic outlet Yareli Rubio DO [address] [place] [address] Phone: tel: fax: [facility] [address] [place] [address] Phone: tel: fax: Referral ID Status Reason Start Date Expiration Date Visits Requested Visits Authorized [id number] Authorized Specialty Services Required 5 11/21/2026 1 1 * Consultation (Routine) - Authorized Specialty Diagnoses / Procedures Referred By Contac t Referred To Contact Neurology Diagnoses Chronic intractable headache, unspecified headache type Thoracic outlet syndrome of left thoracic outlet Yareli Rubio DO [address] [facility] [address] [place] [address] Phone: tel: fax: Referral ID Status Reason Start Date Expiration Date Visits Requested Visits Authorized [id number] Authorized Specialty Services Required 11/21/2026 1 1 * Imaging (Routine) - Authorized Specialty Diagnoses / Procedures Referred By Contac t Referred To Contact Diagnoses Left-sided chest wall pain Chronic left shoulder pain Thoracic outlet syndrome of left thoracic outlet Procedures MR Shoulder Left w and wo IV Contrast Yareli Rubio DO [address] [facility] [address] [place] [address] Phone: tel: fax: [facility] () [address] [place] [address] Phone: tel: fax: Referral ID Status Reason Start Date Expiration Date V isits Requested Visits Authorized [id number] Authorized 05/22/2025 11/21/2026 1 1 Reason for Visit * Reason Comments Consult Rheumatoid Arthritis * Consultation (Routine) - Closed Specialty Diagnoses / Procedures Referred By Contac t Referred To Contact Rheumatology Diagnoses Rheumatoid arthritis ([facility]) Rupal Rasmussen C, RELOCATION COUNSELOR [address] [place] [address] Phone: tel:[phone] fax:[phone] Referral ID Status Reason Start Date Expiration Date V isits Requested Visits Authorized [id number] Closed Specialty Services Required 04/18/2025 10/18/2026 1 1 Encounter Details Date Type Department Care Team (Late st Contact Info) Description 05/22/2025 1:15 PM EST Consult [facility] [address] [place] [address] Yareli Rubio DO [address] [place] [address] Polyarthralgia (Primary Dx); Left-sided chest wall pain; Chronic left shoulder pain; Chronic elbow pain, left; Chronic intractable headache, unspecified headache type; Thoracic outlet syndrome of left thoracic outlet Social History Tobacco Use Types Packs/Day Years Used Date Smoking Tobacco: Every Day Cigarettes 0.5 25 Smokeless Tobacco: Never Sex and Gender Information Value Date Recorded Sex Assigned at Not on file Legal Sex Male 1:24 PM EDT Gender Identity Not on file Sexual Orientation Not on file documented as of this encounter Last Filed Vital Signs Vital Sign Reading Time Taken Comments Blood Pressure 116/72 05/22/2025 1:05 PM EST Pulse 58 05/22/2025 1:05 PM EST Temperature 36.6 C (97.9 F) 05/22/2025 1:05 PM EST Respiratory Rate 16 05/22/2025 1:05 PM EST Oxygen Saturation 98% 05/22/2025 1:05 PM EST Inhaled Oxygen Concentration - - Weight 63.3 kg (139 lb 8.8 oz) 05/22/2025 1:05 P M EST Height 167.6 cm (5' 6 ) 05/22/2025 1:05 PM EST Body Mass Index 22.52 05/22/2025 1:05 PM EST documented in this encounter Miscellaneous Notes * Progress Notes - Yareli Rubio DO - 05/22/2025 1:15 PM EST Rheumatology Office Visit - New Patient HPI: Sam Astorga is a 49 y.o. male who was referred to rheumatology by Rupal Rasmussen APRN for evaluation of L sided chest wall, arm, upper back pain with altered sensation and numbness like sensation going down the L arm. 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 A few days later, he developed chest pain and numbness, prompting him to seek emergency care on three separate occasions. Despite extensive inves tigations, including cardiac catheterization, no abnormalities were detected in his heart, lungs, or kidneys. Since then, he has been experiencing persistent pain, numbness, dizziness, and headaches daily. The pain originates from his mid-back and radiates to the left side of his neck and head. He also reports pain in his ribs, particularly on the left side, which prevents him from sleeping on that side. He has not undergone any imaging studies of his shoulder. 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 He also reports occasional chest pain, which hedescribes as painful. He experiences eye twitching during episodes of dizziness or headache. He does not endorse feelings of depression but reports anxiety related to his symptoms. He has been experiencing daily headaches for the past year. He has consulted a neurologist for a nerve conduction testbut has not discussed his headaches with them. He was referred to physical therapy following his hospitalization, but the therapy was ineffective and caused him additional pain. He has no history of kidney disease, blood clots, seizures, strokes, or cancer. He does not experience recurrent fevers or infections. He does not have Raynaud's phenomenon but reports that his hand becomes cold when he experiences numbness in his arm. He has no history of fluid accumulation aroundhis heart, lungs, or intestines. He has a history of right clavicle fracture but no issues with hisleft clavicle. No persistent rashes. Pt agreed to Stampt device for visit. Review of systems 14 point ROS was done, negative other than mentioned in HPI. Review of Systems Constitutional: Positive for fatigue. Negative for diaphoresis and fever. Respiratory: Negative for shortness of breath. Cardiovascular: Positive for chest pain and palpitations. Gastrointestinal: Negative for abdominal pain, nausea and vomiting. Musculoskeletal: Positive for back pain and neck pain. Neurological: Positive for dizziness, light-headedness and headaches. PMx: Past Medical History[1] Psx: Surgical History[2] FMx: Family History[3] Sx: Social History Tobacco Use Smoking status: Every Day Current packs/day: 0.50 Average packs/day: 0.5 packs/day for 25.0 years (12.5 ttl pk-yrs) Types: Cigarettes Smokeless tobacco: Never Substance Use Topics Alcohol use: Not on file Allergies: Allergies[4] Medications: No current outpatient medications Objective Physical Exam: GENERAL APPERANCE: Well appearing, in no distress SKIN: No rashes. No raynaud's, no pits or ulcers at tips of digits. No sclerodactyly. No sclerodematous facies. No vasculitis lesions. No nodular skin lesions in extremities. No palpable extremity calcifications. No psoriatic plaques. No Gottron papules. No extensor surface erythema. No fingernail a bnormalities. HEENT: No patchy alopecia, Non-icteric slcera. No conjunctival injection. No oral ulcers. No palatal lesions. No gingival erythema. RESPIRATORY: Clear. Unlabored breathing. CARDIOVASCULAR: Regular rate and rhythm. No extremity edema. Well perfused extremities. LYMPH NODES: No cervical or supraclavicular lymphadenopathy. NEUROLOGIC: Good tone. Preserved strength. No choreiform movements. No hyperalgesia or allodynia. PSYCHIATRIC: Congruent mood and affect. MUSCULOSKELETAL: Tenderness of PIPs bilaterally, no synovitis. No other tenderness or synovitis appreciated of hands, wrists, knees, ankles. He has good ROM of bilateral shoulders, however does report pain in his L chest wall, back, and L arm. 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, and now unable to L side/shoulder/arm due to pain- he has performed prior physical therapy with no improvement in his symptoms -Reports prior evaluation for cardiac cause was unremarkable -Prior cervical spine MRI with minimal degenerative changes (report viewed on telephone) PLAN: -Obtain MRI of L shoulder as well as MRI of brachial plexus to evaluate for thoracic outlet vs possible rotator cuff cause of symptoms (He has performed PT, has been unhelpful) -Refer to orthopedics and neurology for evaluation of suspected thoracic outlet -Obtain TITO, RF, CCP, ESR, CRP- no active signs of an autoimmune rheumatic disease at this time- will evaluate further with serologies - CBC and Differential; Future - Comprehensive Metabolic Panel, Plasma; Future - C-Reactive Protein, Plasma; Future - Sedimentation Rate, Automated; Future - Antinuclear Antibody (TITO), HEp-2, IgG; Future - ENAI; Future - Vitamin D 25 Hydroxy; Future - Cyclic Citrul Peptide Antibody IgG; Future - Rheumatoid Factor, Plasma; Future - Quantiferon TB Gold Plus; Future - Hepatitis panel, acute; Future - B. 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 Follow Up: 2 months Answers submitted by the patient for this visit: Consultation on 05/22/2025 1:15 PM with Yareli Rubio DO Neurological Problem Questionnaire (Submitted on 05/21/2025) Chief Complaint: Neurologic complaint focal sensory loss: Yes near-syncope: Yes focal weakness: Yes Chronicity: recurrent Onset: more than 1 year ago Onset quality: suddenly Progression since onset: waxing and waning aura: Yes bladder incontinence: No bowel incontinence: No vertigo: No auditory change: Yes Treatments tried: nothing, acetaminophen, aspirin, bed rest, drinking, eating, medication, neck support, position change, sleep, sugar/glucose, walking Improvement on treatment: mild [1] Past Medical History: Diagnosis Date Abdominal distension (gaseous) 03/15/2025 Atherosclerotic heart disease of [place] coronary artery without angina pectoris 05/30/2024 Benign neoplasm of descending colon 09/21/2024 Benign neoplasm of sigmoid colon 09/21/2024 Cervicalgia 11/30/2024 Chest pain, unspecified 05/30/2024 Chronic obstructive pulmonary disease, unspecified 11/30/2024 Constipation, unspecified 08/31/2024 Contact with workbencJet tool 01/28/2025 Cyst of kidney, acquired 07/19/2024 Eructation 03/15/2025 Frozen shoulder Hyperlipidemia, unspecified 11/30/2024 Laceration without foreign body of left hand, initial encounter 01/28/2025 Left upper quadrant pain 11/30/2024 Low back pain Myopia, bilateral 08/07/2024 Other hemorrhoids 09/21/2024 Other specified disorders of kidney and ureter 06/23/2024 Pain in left shoulder 11/30/2024 Pain in thoracic spine 06/21/2024 Polyp of colon 09/21/2024 Pruritus, unspecified 01/09/2025 Rotator cuff syndrome Sacroiliitis, not elsewhere classified (CMS/HCC) 06/21/2024 Second degree hemorrhoids 09/21/2024 Segmental and somatic dysfunction of lower extremity 06/21/2024 [2] Past Surgical History: Procedure Laterality Date CARDIAC CATHETERIZATION TONSILLECTOMY [3] History reviewed. No pertinent family history. [4] Allergies Allergen Reactions Sulfamethoxazole Unknown - Patient states they do not know rxn details Sulfamethoxazole-Trimethoprim Other - please document in the comment field Trimethoprim Unknown - Patient states they do not know rxn details documented in this encounter Plan of Treatment Upcoming Encounters Date Type Department Care Team (Late st Contact Info) Description 07/30/2025 3:15 PM EST Office Visit [facility] Medicine Specialties [address] [place] [id number] Yareli Rubio DO [address] [place] [address] Scheduled Orders Name Type Priority Associated Diagnoses Orde r Schedule MR Shoulder Left w and wo IV Contrast Imaging Routine Left-sided chest wall pain Chronic left shoulder pain Thoracic outlet syndrome of left thoracic outlet Expected: 05/22/2025 (Approximate), Expires: 11/23/2026 MR Brachial Plexus w and wo IV Contrast Imaging Routine Left-sided chest wall pain Chronic left shoulder pain Thoracic outlet syndrome of left thoracic outlet Expected: 05/22/2025 (Approximate), Expires: 11/23/2026 Scheduled Referrals Name Type Priority Associated Diagnoses Order Schedule Neurology Outpatient Referral Routine Chronic intractable headache, unspecified headache type Thoracic outlet syndrome of left thoracic outlet Expected: 05/22/2025 (Approximate), Expires: 11/23/2026 Ambulatory referral to Orthopaedic Surgery Outpatient Referral Routine Polyarthralgia Left-sided chest wall pain Chronic left shoulder pain Thoracic outlet syndrome of left thoracic outlet 1 Occurrences starting 05/22/2025 until 11/23/2026 documented as of this encounter Results * B. burgdorferi VlsE1/pepC10 Abs, Total by ANTONINO with Reflex to IgG and IgM by Immunoblot(Standard Two-Tier Testing)(SO) (05/22/2025 3:09 PM EST) B. burgdorferi VlsE1/pepC10 Abs, ANTONINO 0.59 <=0.90 IV 05/24/2025 10:10 PM EST [facility] ([employer]) Blood Venous blood specimen / Unknown Venipuncture / Unknown 05/22/2025 3:09 PM EST 05/22/2025 3:10 PM EST Narrative [facility] ([employer]) - 05/24/2025 10:10 PM EST When Borrelia burgdorferi VlsE1/pepC10 assay is negative further testing is not recommended and will not be performed. REFERENCE INTERVAL: B. burgdorferi VlsE1/pepC10 Abs, ANTONINO 0.90 IV or less..........Negative: VlsE1 and pepC10 antibodies to B. burgdorferi not detected. 0.91 - 1.09 IV...........Equivocal: Repeat testing in 10-14 days may be helpful. 1.10 IV or greater.......Positive: VlsE1 and pepC10 antibodies to B. burgdorferi detected. Performed By: [facility] [address] [place] [address] Straightedge Machine Operator Helper: Gregory Cormier MD, PhD CLIA Number: [id number] [facility] DO LAB REF LAB BLOOD AND FLUID ORD Final Result Performing Organization Address City/[facility] Co de Phone Number [facility] ([facility]) [address] [place] [address] * Hepatitis panel, acute (05/22/2025 3:09 PM EST) [facility] Hepatitis B Surf Antigen Negative Negative 05/22/2025 7:18 PM EST [facility] Hepatitis C Antibody Negative Negative 05/22/2025 7:18 PM EST [facility] Hepatitis A Antibody IgM Negative Negative 05/22/2025 7:18 PM EST [facility] Hepatitis B Core Antibody IgM Negative Negative 05/22/2025 7:18 PM EST [facility] Blood Venous blood specimen / Unknown Venipuncture / Unknown 05/22/2025 3:09 PM EST 05/22/2025 3:10 PM EST [facility] BLOOD ORDERABLES Final Resu lt [facility] [address] [place] [address] * Quantiferon TB Gold Plus (05/22/2025 3:09 PM EST) [facility] Quantiferon TB Gold Plus Result Negative Negative 05/23/2025 4:32 PM EST [facility] TB Nill Value 0.0516 IU/mL 05/23/2025 4:32 PM EST [facility] TB Antigen 1 0.0329 IU/mL 05/23/2025 4:32 PM EST [facility] TB Antigen 2 0.0834 IU/mL 05/23/2025 4:32 PM EST [facility] TB Mitogen 9.9484 IU/mL 05/23/2025 4:32 PM EST [facility] Blood Venous blood specimen / Unknown Venipuncture / Unknown 05/22/2025 3:09 PM EST 05/22/2025 3:10 PM EST Narrative [facility] - 05/23/2025 4:32 PM EST Responses to the Mitogen positive control and occasionally to TB antigen can be above the assay range. For calculation purposes: IFN-gamma values > 10 IU/mL are handled as 10 IU/mL. [facility] LAB BLOOD ORDERABLES Final Resu lt Performing Organization Address City/[facility]/ZIP Co de Phone Number [facility] [address] [place] [address] * Rheumatoid Factor, Plasma (05/22/2025 3:09 PM EST) Rheumatoid Factor, Plasma <10 <14 IU/mL 05/22/2025 4:53 PM EST [facility] Blood Venous blood specimen / Unknown Venipuncture / Unknown 05/22/2025 3:09 PM EST 05/22/2025 3:10 PM EST [facility] LAB BLOOD ORDERABLES Final Resu lt Performing Organization Address [facility] [place] [address] * Cyclic Citrul Peptide Antibody IgG (05/22/2025 3:09 PM EST) Cyclic Citrul Peptide Antibody IgG <5.0 <=5.0 U/mL 05/22/2025 5:39 PM EST [facility] Blood Venous blood specimen / Unknown Venipuncture / Unknown 05/22/2025 3:09 PM EST 05/22/2025 3:10 PM EST [facility] LAB BLOOD ORDERABLES Final Resu lt Performing Organization Address City/[facility]/[place] [address] * Vitamin D 25 Hydroxy (05/22/2025 3:09 PM EST) Vitamin D 25 Hydroxy 37.8 20.0 - 80.0 ng/mL 05/22/2025 7:16 PM EST [facility] Blood Venous blood specimen / Unknown Venipuncture / Unknown 05/22/2025 3:09 PM EST 05/22/2025 3:10 PM EST Narrative [facility] - 05/22/2025 7:16 PM EST Testing performed on [employer] Hatcher[employer] Supervisor, standardized against NIST SRM [id number]. When testing samples from patients whose predominant form of vitamin D is vitamin D2, such as patients receiving vitamin D2 supplementation, results that are subtherapeutic should be confirmed with another method, such as LC-MS/MS, before being used for patient management. Vitamin D, 25-Hydroxy reference range, age 18 years and up: Deficiency: <12 ng/mL Insufficiency: 12 to 19 ng/mL Sufficiency: 20 to 80 ng/mL Possible toxicity: >100 ng/mL Yareli Rubio DO LAB BLOOD ORDERABLES Final Resu lt [facility] [address] [place] [address] * ENAI (05/22/2025 3:09 PM EST) Pathologist [facility] Rouse/THREAD CUTTER (JOAQUÍN) Ab, IgG 6 0 - 19 Units 05/25/2025 7:23 AM EST [facility] ([employer]) Blood Venous blood specimen / Unknown Venipuncture / Unknown 05/22/2025 3:09 PM EST 05/22/2025 3:10 PM EST Narrative [facility] ([employer]) - 05/25/2025 7:23 AM EST INTERPRETIVE INFORMATION: Rouse/THREAD CUTTER (JOAQUÍN) Antibody, IgG 19 Units or Less ............. Negative 20 to 39 Units ............... Weak Positive 40 to 80 Units ............... Moderate Positive 81 Units or greater .......... Strong Positive Rouse/THREAD CUTTER antibodies are frequently seen in patients with mixed connective tissue disease (MCTD) and are also associated with other systemic autoimmune rheumatic diseases (SARDs) such as systemic lupus erythematosus (SLE), systemic sclerosis, and myositis. Antibodies targeting the Rouse/THREAD CUTTER antigenic complex also recognize Rouse antigens, therefore, the Rouse antibody response must be considered when interpreting these results. Performed By: [facility] [address] [place] [address] Straightedge Machine Operator Helper: Gregory Cormier MD, PhD CLIA Number: [id number] us Yareli Rubio DO LAB BLOOD ORDERABLES Final Resu lt [facility] ([facility]) [address] [place] [address] * Antinuclear Antibody (TITO), HEp-2, IgG (05/22/2025 3:09 PM EST) TITO INTERPRETIVE COMMENT See Note 05/26/2025 3:21 PM EST [facility] ([employer] [facility]) Anti Nuc Ab Screen <1:80 <1:80 05/26/2025 3:21 PM EST [facility] ([employer]) Blood Venous blood specimen / Unknown Venipuncture / Unknown 05/22/2025 3:09 PM EST 05/22/2025 3:10 PM EST Narrative [facility] ([employer]) - 05/26/2025 3:21 PM EST Clinical Interpretation: Antinuclear antibodies by IFA negative for homogeneous, speckled, nucleolar, centromere, and nuclear dots patterns. Cytoplasmic antibodies by IFA negative for reticular/AMA, discrete/GW body-like, polar/golgi-like, rods and rings, and cytoplasmic speckled patterns. INTERPRETIVE INFORMATION: TITO Interpretive Comment Presence of antinuclear antibodies (TITO) is a hallmark feature of systemic autoimmune rheumatic diseases (SARD). However, TITO lacks diagnostic specificity and is associated with a variety of diseases (cancers, autoimmune, infectious, and inflammatory conditions) and may also occur in healthy individuals in varying prevalence. The lack of diagnostic specificity requires confirmation of positive TITO by more specific serologic tests. TITO (nuclear reactivity) positive patterns reported include centromere, homogeneous, nuclear dots, nucleolar, or speckled. TITO (cytoplasmic reactivity) positive patterns reported include reticular/AMA, discrete/GW body-like, polar/golgi-like, cytoplasmic speckled or rods and rings. All positive patterns are reported to endpoint titers (1:2560). Reported patterns may help guide differential diagnosis, although they may not be specific for individual antibodies or diseases. Mitotic staining patterns not reported. Negative results do not necessarily rule out SARD. Performed By: [facility] [address] [place] [address] Straightedge Machine Operator Helper: Gregory Cormier MD, PhD CLIA Number: [id number] [facility] LAB BLOOD ORDERABLES Final Resu lt Performing Organization Address City/[facility]/ZIP Co de Phone Number [facility] ([facility]) [address] [place] [address] * (ABNORMAL) Sedimentation Rate, Automated (05/22/2025 3:09 PM EST) Sedimentation Rate 20(H) <20 mm/hr 2024 5:03 PM EST [facility] Blood Venous blood specimen / Unknown Venipuncture / Unknown 05/22/2025 3:09 PM EST 05/22/2025 3:10 PM EST [facility] LAB BLOOD ORDERABLES Final Resu lt [facility] [address] [place] [address] * C-Reactive Protein, Plasma (05/22/2025 3:09 PM EST) CRP, Plasma <3.0 <=8.0 mg/L 05/22/2025 4:53 PM EST [facility] Blood Venous blood specimen / Unknown Venipuncture / Unknown 05/22/2025 3:09 PM EST 05/22/2025 3:10 PM EST Narrative [facility] - 05/22/2025 4:53 PM EST This CRP test is appropriate for assessment of infection, systemic inflammation and/or tissue injury. To assess cardiovascular disease risk order high sensitivity CRP (CRPH). Yareli Antic DO LAB BLOOD ORDERABLES Final Resu lt [facility] [address] [place] [address] * Comprehensive Metabolic Panel, Plasma (05/22/2025 3:09 PM EST) Glucose, Plasma 75 74 - 99 mg/dL 05/22/2025 4:53 PM EST [facility] BUN, Plasma 16 7 - 21 mg/dL 05/22/2025 4:53 PM EST [facility] Creatinine, Plasma 0.86 0.70 - 1.20 mg/dL 05/22/2025 4:53 PM EST [facility] BUN/Creatinine Ratio 19 05/22/2025 4:53 PM EST [facility] Sodium, Plasma 141 136 - 145 mmol/L 05/22/2025 4:53 PM EST [facility] Potassium, Plasma 4.3 3.6 - 4.9 mmol/L 05/22/2025 4:53 PM EST [facility] Chloride, Plasma 105 97 - 107 mmol/L 05/22/2025 4:53 PM EST [facility] CO2, Plasma 27 22 - 29 mmol/L 05/22/2025 4:53 PM EST [facility] Anion Gap 9 6 - 16 mmol/L 05/22/2025 4:53 PM EST [facility] Total Calcium, Plasma 9.4 8.9 - 10.2 mg/dL 05/22/2025 4:53 PM EST [facility] Total Protein 7.4 6.3 - 7.9 g/dL 05/22/2025 4:53 PM EST [facility] Albumin, Plasma 4.5 3.5 - 5.2 g/dL 05/22/2025 4:53 PM EST [facility] AST, Plasma 23 10 - 50 U/L 05/22/2025 4:53 PM EST [facility] ALT, Plasma 24 10 - 50 U/L 05/22/2025 4:53 PM EST [facility] Alkaline Phosphatase, Plasma 89 40 - 115 U/L 05/22/2025 4:53 PM EST [facility] Total Bilirubin, Plasma 0.2 0.2 - 1.1 mg/dL 05/22/2025 4:53 PM EST [facility] eGFRcr 105.5 mL/min/1.7 3m*2 05/22/2025 4:53 PM EST [facility] Comment:Reported eGFRcr in m L/min/1.73m2 is based the CKD-EPI 2020 equation that does not use a race coefficient. Blood Venous blood specimen / Unknown Venipuncture / Unknown 05/22/2025 3:09 PM EST 05/22/2025 3:10 PM EST us Yareli Antic DO LAB BLOOD ORDERABLES Final Resu lt [facility] [address] [place] [address] * CBC and Differential (05/22/2025 3:09 PM EST) WBC Count 9.32 3.70 - 10.30 10*3/uL LAB HEMATOLOGY METHOD 05/22/2025 4:46 PM EST [facility] RBC Count 4.90 4.60 - 6.10 10*6/uL LAB HEMATOLOGY METHOD 05/22/2025 4:46 PM EST [facility] HGB 15.7 13.7 - 17.5 g/dL LAB HEMATOLOGY METHOD 05/22/2025 4:46 PM EST [facility] HCT 45.8 40.0 - 51.0 % LAB HEMATOLOGY METHOD 05/22/2025 4:46 PM EST [facility] Platelet Count 363 155 - 369 10*3/uL LAB HEMATOLOGY METHOD 05/22/2025 4:46 PM EST [facility] MCV 94 79 - 98 fL LAB HEMATOLOGY METHOD 05/22/2025 4:46 PM EST [facility] MCH 32.0 26.0 - 32.0 pg LAB HEMATOLOGY METHOD 05/22/2025 4:46 PM EST [facility] MCHC 34.3 30.7 - 35.5 g/dL LAB HEMATOLOGY METHOD 05/22/2025 4:46 PM EST [facility] RDW 13.1 11.5 - 14.5 % LAB HEMATOLOGY METHOD 05/22/2025 4:46 PM EST [facility] MPV 10.5 8.8 - 12.5 fL LAB HEMATOLOGY METHOD 05/22/2025 4:46 PM EST [facility] nRBC 0.0 <=0.0 per 100 WBCs LAB HEMATOLOGY METHOD 05/22/2025 4:46 PM EST [facility] Differential Type Automated LAB HEMATOLOGY METHOD 05/22/2025 4:46 PM EST [facility] Neutrophils % 60 % LAB HEMATOLOGY METHOD 05/22/2025 4:46 PM EST [facility] Lymphocytes % 29 % LAB HEMATOLOGY METHOD 05/22/2025 4:46 PM EST [facility] Monocytes % 7 % LAB HEMATOLOGY METHOD 05/22/2025 4:46 PM EST [facility] Eosinophils % 3 % LAB HEMATOLOGY METHOD 05/22/2025 4:46 PM EST [facility] Basophils % 1 % LAB HEMATOLOGY METHOD 05/22/2025 4:46 PM [facility] Immature Granulocytes % 0 % LAB HEMATOLOGY METHOD 05/22/2025 4:46 PM EST [facility] Neutrophils Absolute 5.61 1.60 - 6.10 10*3/uL LAB HEMATOLOGY METHOD 05/22/2025 4:46 PM EST [facility] Lymphocytes Absolute 2.70 1.20 - 3.90 10*3/uL LAB HEMATOLOGY METHOD 05/22/2025 4:46 PM EST [facility] Monocytes Absolute 0.68 0.30 - 0.90 10*3/uL LAB HEMATOLOGY METHOD 05/22/2025 4:46 PM [facility] Eosinophils Absolute 0.24 0.00 - 0.50 10*3/uL LAB HEMATOLOGY METHOD 05/22/2025 4:46 PM EST [facility] Basophils Absolute 0.06 0.00 - 0.10 10*3/uL LAB HEMATOLOGY METHOD 05/22/2025 4:46 PM [facility] Immature Granulocytes Absolute 0.03 0.00 - 0.06 10*3/uL LAB HEMATOLOGY METHOD 05/22/2025 4:46 PM [facility] Blood Venous blood specimen / Unknown Venipuncture / Unknown 05/22/2025 3:09 PM EST 05/22/2025 3:10 PM EST Narrative [facility] - 05/22/2025 4:46 PM EST Therapeutic decision making should be based on absolute values, rather than percentages. us Yareli Rubio DO LAB BLOOD ORDERABLES Final Resu lt [facility] [address] [place] [address] * XR Shoulder Left 2+ Views (05/22/2025 3:01 PM EST) Anatomical Region Laterality Modality Upper Extremities, Shoulder Left Digi alina Radiography Impressions 05/22/2025 3:15 PM EST No acute osseous findings. Degenerative changes as above. No evidence of erosive change. CRITICAL RESULT: No. COMMUNICATION: Per this written report. Drafted by Merlin Irizarry on 05/22/2025 3:12 PM Final report signed by Merlin Irizarry on 05/22/2025 3:15 PM Narrative 05/22/2025 3:15 PM EST CLINICAL INDICATION: L elbow pain medial and elbow TECHNIQUE: XR ELBOW LEFT 3+ VIEWS, XR HAND WRIST BILATERAL 2 VIEWS, XR RIBS 3 VIEWS BILATERAL, XR SHOULDER LEFT 2+ VIEWS COMPARISON: None. FINDINGS: Left hand and wrist: No acute fracture or dislocation. Osseous structures in satisfactory alignment. Mineralization along the ulnar margin of the distal interphalangeal joint of the third digit may represent sequela of prior injury. Mild degenerative change of the triscaphe interval. No significant soft tissue swelling. Right hand and wrist: No acute fracture or dislocation. Osseous structures in satisfactory alignment. Minimal degenerative change of the triscaphe interval. No significant soft tissue swelling. No evidence of erosive change. Left elbow: No acute fracture or dislocation. Osseous structures in satisfactory alignment. No significant soft tissue swelling. Left shoulder: No acute fracture or dislocation. Osseous structures in satisfactory alignment. Mild degenerative change of the acromioclavicular joint. Minimal degenerative change of the glenohumeral joint. No significant soft tissue swelling. Ribs: No focal airspace opacity. No pneumothorax or pleural effusion. The cardiomediastinal silhouette is within normal limits. No visibly displaced fractures. Procedure Note Merlin Irizarry MD - 05/22/2025 CLINICAL INDICATION: L elbow pain medial and elbow TECHNIQUE: XR ELBOW LEFT 3+ VIEWS, XR HAND WRIST BILATERAL 2 VIEWS, XR RIBS 3 VIEWSBILATERAL, XR SHOULDER LEFT 2+ VIEWS COMPARISON: None. FINDINGS: Left hand and wrist: No acute fracture or dislocation. Osseous structuresin satisfactory alignment. Mineralization along the ulnar margin of thedistal interphalangeal joint of the third digit may represent sequela ofprior injury. Mild degenerative change of the triscaphe interval. Nosignificant soft tissue swelling. Right hand and wrist: No acute fracture or dislocation. Osseous structuresin satisfactory alignment. Minimal degenerative change of the triscapheinterval. No significant soft tissue swelling. No evidence of erosivechange. Left elbow: No acute fracture or dislocation. Osseous structures insatisfactory alignment. No significant soft tissue swelling. Left shoulder: No acute fracture or dislocation. Osseous structures insatisfactory alignment. Mild degenerative change of the acromioclavicularjoint. Minimal degenerative change of the glenohumeral joint. Nosignificant soft tissue swelling. Ribs: No focal airspace opacity. No pneumothorax or pleural effusion. Thecardiomediastinal silhouette is within normal limits. No visibly displacedfractures. IMPRESSION: No acute osseous findings. Degenerative changes as above. No evidence oferosive change. CRITICAL RESULT: No. COMMUNICATION: Per this written report. Drafted by Merlin Irizarry on 05/22/2025 3:12 PM Final report signed by Merlin Irizarry on 05/22/2025 3:15 PM Yareli Rubio DO IMG XR PROCEDURES Final Result * XR Elbow Left 3+ Views (05/22/2025 3:01 PM EST) Anatomical Region Laterality Modality Upper Extremities, Elbow Left Digital Radiography Impressions 05/22/2025 3:15 PM EST No acute osseous findings. Degenerative changes as above. No evidence of erosive change. CRITICAL RESULT: No. COMMUNICATION: Per this written report. Drafted by Merlin Irizarry on 05/22/2025 3:12 PM Final report signed by Merlin Irizarry on 05/22/2025 3:15 PM Narrative 05/22/2025 3:15 PM EST CLINICAL INDICATION: L elbow pain medial and elbow TECHNIQUE: XR ELBOW LEFT 3+ VIEWS, XR HAND WRIST BILATERAL 2 VIEWS, XR RIBS 3 VIEWS BILATERAL, XR SHOULDER LEFT 2+ VIEWS COMPARISON: None. FINDINGS: Left hand and wrist: No acute fracture or dislocation. Osseous structures in satisfactory alignment. Mineralization along the ulnar margin of the distal interphalangeal joint of the third digit may represent sequela of prior injury. Mild degenerative change of the triscaphe interval. No significant soft tissue swelling. Right hand and wrist: No acute fracture or dislocation. Osseous structures in satisfactory alignment. Minimal degenerative change of the triscaphe interval. No significant soft tissue swelling. No evidence of erosive change. Left elbow: No acute fracture or dislocation. Osseous structures in satisfactory alignment. No significant soft tissue swelling. Left shoulder: No acute fracture or dislocation. Osseous structures in satisfactory alignment. Mild degenerative change of the acromioclavicular joint. Minimal degenerative change of the glenohumeral joint. No significant soft tissue swelling. Ribs: No focal airspace opacity. No pneumothorax or pleural effusion. The cardiomediastinal silhouette is within normal limits. No visibly displaced fractures. Procedure Note Merlin Irizarry MD - 05/22/2025 CLINICAL INDICATION: L elbow pain medial and elbow TECHNIQUE: XR ELBOW LEFT 3+ VIEWS, XR HAND WRIST BILATERAL 2 VIEWS, XR RIBS 3 VIEWSBILATERAL, XR SHOULDER LEFT 2+ VIEWS COMPARISON: None. FINDINGS: Left hand and wrist: No acute fracture or dislocation. Osseous structuresin satisfactory alignment. Mineralization along the ulnar margin of thedistal interphalangeal joint of the third digit may represent sequela ofprior injury. Mild degenerative change of the triscaphe interval. Nosignificant soft tissue swelling. Right hand and wrist: No acute fracture or dislocation. Osseous structuresin satisfactory alignment. Minimal degenerative change of the triscapheinterval. No significant soft tissue swelling. No evidence of erosivechange. Left elbow: No acute fracture or dislocation. Osseous structures insatisfactory alignment. No significant soft tissue swelling. Left shoulder: No acute fracture or dislocation. Osseous structures insatisfactory alignment. Mild degenerative change of the acromioclavicularjoint. Minimal degenerative change of the glenohumeral joint. Nosignificant soft tissue swelling. Ribs: No focal airspace opacity. No pneumothorax or pleural effusion. Thecardiomediastinal silhouette is within normal limits. No visibly displacedfractures. IMPRESSION: No acute osseous findings. Degenerative changes as above. No evidence oferosive change. CRITICAL RESULT: No. COMMUNICATION: Per this written report. Drafted by Merlin Irizarry on 05/22/2025 3:12 PM Final report signed by Merlin Irizarry on 05/22/2025 3:15 PM Yareli Rubio DO IMG XR PROCEDURES Final Result * XR Ribs 3 Views Bilateral (05/22/2025 3:01 PM EST) Anatomical Region Laterality Modality Rib Bilateral Digital Radiogra phy Impressions 05/22/2025 3:15 PM EST No acute osseous findings. Degenerative changes as above. No evidence of erosive change. CRITICAL RESULT: No. COMMUNICATION: Per this written report. Drafted by Merlin Irizarry on 05/22/2025 3:12 PM Final report signed by Merlin Irizarry on 05/22/2025 3:15 PM Narrative 05/22/2025 3:15 PM EST CLINICAL INDICATION: L elbow pain medial and elbow TECHNIQUE: XR ELBOW LEFT 3+ VIEWS, XR HAND WRIST BILATERAL 2 VIEWS, XR RIBS 3 VIEWS BILATERAL, XR SHOULDER LEFT 2+ VIEWS COMPARISON: None. FINDINGS: Left hand and wrist: No acute fracture or dislocation. Osseous structures in satisfactory alignment. Mineralization along the ulnar margin of the distal interphalangeal joint of the third digit may represent sequela of prior injury. Mild degenerative change of the triscaphe interval. No significant soft tissue swelling. Right hand and wrist: No acute fracture or dislocation. Osseous structures in satisfactory alignment. Minimal degenerative change of the triscaphe interval. No significant soft tissue swelling. No evidence of erosive change. Left elbow: No acute fracture or dislocation. Osseous structures in satisfactory alignment. No significant soft tissue swelling. Left shoulder: No acute fracture or dislocation. Osseous structures in satisfactory alignment. Mild degenerative change of the acromioclavicular joint. Minimal degenerative change of the glenohumeral joint. No significant soft tissue swelling. Ribs: No focal airspace opacity. No pneumothorax or pleural effusion. The cardiomediastinal silhouette is within normal limits. No visibly displaced fractures. Procedure Note Merlin Irizarry MD - 05/22/2025 CLINICAL INDICATION: L elbow pain medial and elbow TECHNIQUE: XR ELBOW LEFT 3+ VIEWS, XR HAND WRIST BILATERAL 2 VIEWS, XR RIBS 3 VIEWSBILATERAL, XR SHOULDER LEFT 2+ VIEWS COMPARISON: None. FINDINGS: Left hand and wrist: No acute fracture or dislocation. Osseous structuresin satisfactory alignment. Mineralization along the ulnar margin of thedistal interphalangeal joint of the third digit may represent sequela ofprior injury. Mild degenerative change of the triscaphe interval. Nosignificant soft tissue swelling. Right hand and wrist: No acute fracture or dislocation. Osseous structuresin satisfactory alignment. Minimal degenerative change of the triscapheinterval. No significant soft tissue swelling. No evidence of erosivechange. Left elbow: No acute fracture or dislocation. Osseous structures insatisfactory alignment. No significant soft tissue swelling. Left shoulder: No acute fracture or dislocation. Osseous structures insatisfactory alignment. Mild degenerative change of the acromioclavicularjoint. Minimal degenerative change of the glenohumeral joint. Nosignificant soft tissue swelling. Ribs: No focal airspace opacity. No pneumothorax or pleural effusion. Thecardiomediastinal silhouette is within normal limits. No visibly displacedfractures. IMPRESSION: No acute osseous findings. Degenerative changes as above. No evidence oferosive change. CRITICAL RESULT: No. COMMUNICATION: Per this written report. Drafted by Merlin Irizarry on 05/22/2025 3:12 PM Final report signed by Merlin Irizarry on 05/22/2025 3:15 PM us Yareli Rubio DO IMG XR PROCEDURES Final Result * XR Hand and Wrist Bilateral 2 Views (05/22/2025 3:01 PM EST) Anatomical Region Laterality Modality Hand, Wrist Bilateral Digital Radiogra phy Impressions 05/22/2025 3:15 PM EST No acute osseous findings. Degenerative changes as above. No evidence of erosive change. CRITICAL RESULT: No. COMMUNICATION: Per this written report. Drafted by Merlin Irizarry on 05/22/2025 3:12 PM Final report signed by Merlin Irizarry on 05/22/2025 3:15 PM Narrative 05/22/2025 3:15 PM EST CLINICAL INDICATION: L elbow pain medial and elbow TECHNIQUE: XR ELBOW LEFT 3+ VIEWS, XR HAND WRIST BILATERAL 2 VIEWS, XR RIBS 3 VIEWS BILATERAL, XR SHOULDER LEFT 2+ VIEWS COMPARISON: None. FINDINGS: Left hand and wrist: No acute fracture or dislocation. Osseous structures in satisfactory alignment. Mineralization along the ulnar margin of the distal interphalangeal joint of the third digit may represent sequela of prior injury. Mild degenerative change of the triscaphe interval. No significant soft tissue swelling. Right hand and wrist: No acute fracture or dislocation. Osseous structures in satisfactory alignment. Minimal degenerative change of the triscaphe interval. No significant soft tissue swelling. No evidence of erosive change. Left elbow: No acute fracture or dislocation. Osseous structures in satisfactory alignment. No significant soft tissue swelling. Left shoulder: No acute fracture or dislocation. Osseous structures in satisfactory alignment. Mild degenerative change of the acromioclavicular joint. Minimal degenerative change of the glenohumeral joint. No significant soft tissue swelling. Ribs: No focal airspace opacity. No pneumothorax or pleural effusion. The cardiomediastinal silhouette is within normal limits. No visibly displaced fractures. Procedure Note Merlin Irizarry MD - 05/22/2025 CLINICAL INDICATION: L elbow pain medial and elbow TECHNIQUE: XR ELBOW LEFT 3+ VIEWS, XR HAND WRIST BILATERAL 2 VIEWS, XR RIBS 3 VIEWSBILATERAL, XR SHOULDER LEFT 2+ VIEWS COMPARISON: None. FINDINGS: Left hand and wrist: No acute fracture or dislocation. Osseous structuresin satisfactory alignment. Mineralization along the ulnar margin of thedistal interphalangeal joint of the third digit may represent sequela ofprior injury. Mild degenerative change of the triscaphe interval. Nosignificant soft tissue swelling. Right hand and wrist: No acute fracture or dislocation. Osseous structuresin satisfactory alignment. Minimal degenerative change of the triscapheinterval. No significant soft tissue swelling. No evidence of erosivechange. Left elbow: No acute fracture or dislocation. Osseous structures insatisfactory alignment. No significant soft tissue swelling. Left shoulder: No acute fracture or dislocation. Osseous structures insatisfactory alignment. Mild degenerative change of the acromioclavicularjoint. Minimal degenerative change of the glenohumeral joint. Nosignificant soft tissue swelling. Ribs: No focal airspace opacity. No pneumothorax or pleural effusion. Thecardiomediastinal silhouette is within normal limits. No visibly displacedfractures. IMPRESSION: No acute osseous findings. Degenerative changes as above. No evidence oferosive change. CRITICAL RESULT: No. COMMUNICATION: Per this written report. Drafted by Merlin Irizarry on 05/22/2025 3:12 PM Final report signed by Merlin Irizarry on 05/22/2025 3:15 PM Yareli Antic DO IMG XR PROCEDURES Final Result documented in this encounter Visit Diagnoses Diagnosis Polyarthralgia- Primary Pain in joint, multiple sites Left-sided chest wall pain Painful respiration Chronic left shoulder pain Pain in joint, shoulder region Chronic elbow pain, left Chronic intractable headache, unspecified headache type Thoracic outlet syndrome of left thoracic outlet Polyarthralgia Pain in joint, multiple sites Left-sided chest wall pain Painful respiration Chronic elbow pain, left Chronic left shoulder pain Pain in joint, shoulder region documented in this encounter Additional Health Concerns Assessment Noted Time A fall risk assessment has been complete d for the patient 05/22/2025 1:08 PM EST A Body Mass Index follow-up plan has been documented for the patient 05/22/2025 2:29 PM EST documented as of this encounter Care Teams Warp Yarn Sorter Relationship Specialty Start Date End Date Rupal Rasmussen APRN [address] [place] [address] PCP - General 04/18/25 documented as of this encounter
--- OUTSIDE RECORDS SUMMARY | 2025-05-22 14:24 | XMS_ITS | Encounter Summary ---
Author Organization [facility] Address [address] [place] [address] Care Team Providers Care Shop Fitter Name Role Phone Ximena Rasmussenissa Forrest RAZO Primary Care Provider [phone] Encounter Details Date Type Department Care Team (Latest Contact Info) Description 05/22/2025 2:24 PM EST - 05/22/2025 11:59 PM EST Hospital Encounter [facility] Radiology [address] [place] [phone] Polyarthralgia; Left-sided chest wall pain; Chronic elbow pain, left; Chronic left shoulder pain Discharge Disposition: Home or Self Care Social History Tobacco Use Types Packs/Day Years Used Date Smoking Tobacco: Every Day Cigarettes 0.5 25 Smokeless Tobacco: Never Sex and Gender Information Value Date Recorded Sex Assigned at Not on file Legal Sex Male 1:24 PM EDT Gender Identity Not on file Sexual Orientation Not on file documented as of this encounter Plan of Treatment Upcoming Encounters Date Type Department Care Team (Late st Contact Info) Description 07/30/2025 3:15 PM EST Office Visit [facility] Medicine Specialties [address] [place] [phone] Yareli Rubio DO [address] [place] [phone] documented as of this encounter Procedures Procedure Name Priority Date/Time Associated Diagnosis Comments XR HAND WRIST BILATERAL 2 VIEWS Routine 05/22/2025 3:01 PM EST Polyarthralgia XR ELBOW LEFT 3+ VIEWS Routine 05/22/2025 3:01 PM EST Polyarthralgia Chronic elbow pain, left XR SHOULDER LEFT 2+ VIEWS Routine 05/22/2025 3:01 PM EST Left-sided chest wall pain Chronic left shoulder pain XR RIBS 3 VIEWS BILATERAL Routine 05/22/2025 3:01 PM EST Polyarthralgia Left-sided chest wall pain documented in this encounter Results * XR Shoulder Left 2+ Views (05/22/2025 [...] Merlin Irizarry on 05/22/2025 3:15 PM us Yarelinorma Rubio DO IMG XR PROCEDURES Final Result [...] Irizarry on 05/22/2025 3:15 PM us Yareli Antic DO IMG XR PROCEDURES Final Result * [...] Rubio DO IMG XR PROCEDURES Final Result documented in this encounter Visit Diagnoses Diagnosis Polyarthralgia Pain in joint, multiple sites Left-sided [...] documented as of this encounter Care Teams Shop Fitter Relationship Specialty Start Date End Date Rupal Rasmussen APRN [address] [place] [address] PCP - General 04/18/25 documented as of this encounter
--- NOTE | 2025-06-26 13:05 | MR_ITS ---
FINAL REPORT TECHNIQUE: Multiplanar MR left shoulder before and after intra-articular contrast injection CLINICAL HISTORY: LEFT SHOULDER PAIN X 1 YEAR COMPARISON: None FINDINGS: Marrow signal: Unremarkable Glenohumeral joint: Injected contrast remains confined to the joint space. There is no evidence of loose body. AC joint: Minimal fluid in the subacromial bursa compatible with mild bursitis. No rotator cuff impingement. Rotator cuff: No evidence of tear Labrum: Normal morphology without tear Biceps tendon: Intra-articular long head biceps tendon intact. Postcontrast images demonstrate no mass or abnormal enhancement. IMPRESSION: Bursitis. Reviewed, Interpreted and Dictated by Hansel Badillo MD Transcribed by Cristal George Authenticated and [facility]
--- NOTE | 2025-06-26 13:06 | MR_ITS ---
FINAL REPORT CLINICAL HISTORY: L SIDED CHEST WALL PAIN X 1 YEAR COMPARISON: None FINDINGS: Multiplanar MR imaging of the chest wall was obtained before and after the administration of IV contrast. Chest wall musculature has a normal MR signal pattern. There is no evidence of edema or hemorrhage. No obvious rib lesions seen. No axillary adenopathy. There is no space-occupying lesion in the region of thoracic inlet. No mass or abnormal enhancement. IMPRESSION: Unremarkable exam. Reviewed, Interpreted and Dictated by Hansel Badillo MD Transcribed by Cristal George Authenticated and [facility]
--- OUTSIDE RECORDS SUMMARY | 2025-06-26 13:07 | XMS_ITS | Encounter Summary ---
Author Organization [facility] Address [address] [place] [address] Care Team Providers Care C Consultant Name Role Phone GradyRupal Forrest RAZO Primary Care Provider [phone] Encounter Details Date Type Department Care Team (Late st Contact Info) Description 06/15/2025 Telephone [facility] [address] [place] [address] Gavin Graham MD [address] [facility] [address] [place] [address] Social History Tobacco Use Types Packs/Day Years Used Date Smoking Tobacco: Every Day Cigarettes 0.5 25 Smokeless Tobacco: Never Sex and Gender Information Value Date Recorded Sex Assigned at Not on file Legal Sex Male 1:24 PM EDT Gender Identity Not on file Sexual Orientation Not on file documented as of this encounter Miscellaneous Notes * Telephone Encounter - Carla Interiano - 06/15/2025 9:12 AM EST Lvm for pt to call and schedule. Gladys next avail N/P slot documented in this encounter Plan of Treatment Upcoming Encounters Date Type Department Care Team (Late st Contact Info) Description 07/30/2025 3:15 PM EST Office Visit [facility] [address] [place] [address] Yareli Rubio DO [address] [place] [id number] documented as of this encounter Visit Diagnoses Not on filedocumented in this encounter Additional Health Concerns Assessment Noted Time A fall risk assessment has been complete d for the patient 05/22/2025 1:08 PM EST A Body Mass Index follow-up plan has been documented for the patient 05/22/2025 2:29 PM EST documented as of this encounter Care Teams C Consultant Relationship Specialty Start Date End Date Rupal Rasmussen APRN [address] [id number] PCP - General 04/18/25 documented as of this encounter
--- OUTSIDE RECORDS SUMMARY | 2025-06-26 13:07 | XMS_ITS | Encounter Summary ---
Author Organization [facility] Address [address] [place] [address] Care Team Providers Care Travel Manager Name Role Phone RasmussenRupal Forrest RAZO Primary Care Provider [phone] Encounter Details Date Type Department Care Team (Late Contact Info) Description 06/08/2025 Telephone [facility] [address] [place] [address] Yareli Hopkins DO [address] [place] [address] Social History Tobacco Use Types Packs/Day Years Used Date Smoking Tobacco: Every Day Cigarettes 0.5 25 Smokeless Tobacco: Never Sex and Gender Information Value Date Recorded Sex Assigned at Not on file Legal Sex Male 1:24 PM EDT Gender Identity Not on file Sexual Orientation Not on file documented as of this encounter Miscellaneous Notes * Telephone Encounter - Peg Pinzon - 06/08/2025 1:18 PM EST Called and left message about location for the mri orders dr hopkins placed.. documented in this encounter Plan of Treatment Upcoming Encounters Date Type Department Care Team (Late Contact Info) Description 07/30/2025 3:15 PM EST Office Visit [facility] [address] [place] [address] Yareli Hopkins DO [address] [place] [address] documented as of this encounter Visit Diagnoses Not on filedocumented in this encounter Additional Health Concerns Assessment Noted Time A fall risk assessment has been complete d for the patient 05/22/2025 1:08 PM EST A Body Mass Index follow-up plan has been documented for the patient 05/22/2025 2:29 PM EST documented as of this encounter Care Teams Travel Manager Relationship Specialty Start Date End Date Rupal Rasmussen APRN [address] [place] [address] PCP - General 04/18/25 documented as of this encounter
--- OUTSIDE RECORDS SUMMARY | 2025-06-26 13:07 | XMS_ITS | Encounter Summary ---
Author Organization [facility] Address [address] [place] [address] Care Team Providers Care Label Designer Name Role Phone Ximena Rasmussenissa Forrest RAZO Primary Care Provider [phone] Encounter Details Date Type Department Care Team (Late Contact Info) Description 06/08/2025 Telephone [facility] [address] [place] [address] Gavin Graham MD [address] [place] [address] Social History Tobacco Use Types [...] * Telephone Encounter - Carla Interiano - 06/08/2025 3:57 PM EST Lvm for pt to call and schedule. Left clinic number. documented in this encounter Plan of Treatment Upcoming Encounters Date Type Department Care Team (Late Contact Info) Description 07/30/2025 3:15 PM EST Office Visit [facility] [address] [place] [address] Yareli Rubio DO [address] [place] [address] documented as of this encounter Visit Diagnoses Not on filedocumented in this encounter Additional Health Concerns Assessment Noted Time A fall risk assessment has been complete d for the patient 05/22/2025 1:08 PM EST A Body Mass Index follow-up plan has been documented for the patient 05/22/2025 2:29 PM EST documented as of this encounter Care Teams Label Designer Relationship Specialty Start Date End Date Rupal Rasmussen APRN [address] [place] [address] PCP - General 04/18/25 documented as of this encounter
--- OUTSIDE RECORDS SUMMARY | 2025-06-26 13:07 | XMS_ITS | Encounter Summary ---
Author Organization [facility] Address [address] [place] [address] Care Team Providers Care Assembly Leader Name Role Phone Rupal Rasmussen APRN Primary Care Provider [phone] Encounter Details Date Type Department Care Team (Late st Contact Info) Description 06/18/2025 Telephone [facility] [address] [place] [address] Yareli Rubio, DO [address] [place] [address] Social History Tobacco Use Types Packs/Day Years Used Date Smoking Tobacco: Every Day Cigarettes 0.5 25 Smokeless Tobacco: Never Sex and Gender Information Value Date Recorded Sex Assigned at Not on file Legal Sex Male 1:24 PM EDT Gender Identity Not on file Sexual Orientation Not on file documented as of this encounter Miscellaneous Notes * Telephone Encounter - Kiara Humphrey RN - 06/20/2025 4:00 PM EST [facility]ax[facility] at fax [phone]. * Telephone Encounter - Yari Alexandra - 06/18/2025 3:42 PM EST Clinical Concern/Question Reason for Call: [facility] needs a Auth for the MRI faxed fax [phone] Best contact number: Other: [phone] Optimal time of day to reach caller: ANYTIME Additional comments/information from caller: None Note: Please do not reply to this message. Follow-up communication and further actions as a result of this message need to be communicated with the patient directly, if the patient is not active onMyChart. If the patient is active on MyChart, they will receive notification of the communication/outcome via MyChart. documented in this encounter Plan of Treatment Upcoming Encounters Date Type Department Care Team (Late st Contact Info) Description 07/30/2025 3:15 PM EST Office Visit [facility] [address] [place] [address] Yareli Rubio, DO [address] [place] [address] documented as of this encounter Visit Diagnoses Not on filedocumented in this encounter Additional Health Concerns Assessment Noted Time A fall risk assessment has been complete d for the patient 05/22/2025 1:08 PM EST A Body Mass Index follow-up plan has been documented for the patient 05/22/2025 2:29 PM EST documented as of this encounter Care Teams Assembly Leader Relationship Specialty Start Date End Date Rupal Rasmussen APRN [address] [place] [address] PCP - General 04/18/25 documented as of this encounter
--- OUTSIDE RECORDS SUMMARY | 2025-06-26 13:08 | XMS_ITS | Encounter Summary ---
Author Organization [facility] Address [address] [place] [address] Care Team Providers Care Piling Cutter Name Role Phone Rupal Rasmussen APRN Primary Care Provider [phone] Reason for Visit * Reason Onset Date Comments HCN - Patient Message 06/19/2025 Encounter Details Date Type Department Care Team (Late st Contact Info) Description 06/19/2025 Telephone [facility] [address] [place] [address] Antic, Yareli, DO [address] [place] [address] HCN - Patient Message Social History Tobacco Use Types Packs/Day Years [...] Encounter - Kiara Humphrey RN - 06/20/2025 4:15 PM EST Duplicate encounter--see notes on other encounter. * Telephone Encounter - Dolly Mckeon - 06/20/2025 11:28 AM EST Status Update Call #1 1st call regarding the status of the initial request. Best contact number: [phone] Optimal time of day to reach caller: ANYTIME Additional comments/information from caller: [facility]; it can be faxed to [phone] Note: Please do not reply to this message. Follow-up communication and further actions as a result of this message need to be communicated with the patient directly, if the patient is not active onMyChart. If the patient is active on MyChart, they will receive notification of the communication/outcome via Activation Lifet. * Telephone Encounter - Patrick Mcpherson - 06/19/2025 1:12 PM EST Clinical Concern/Question Reason for Call: they are calling for PA for test that have been requested please Best contact number: Other: [phone] Optimal time of day to reach caller: ANYTIME Additional comments/information from caller: None Note: Please do not reply to this message. Follow-up communication and further actions as a result of this message need to be communicated with the patient directly, if the patient is not active onMyChart. If the patient is active on MyChart, they will receive notification of the communication/outcome via Qinti. documented in this encounter Plan of Treatment Upcoming Encounters Date Type Department Care Team (Late st Contact Info) Description 07/30/2025 3:15 PM EST Office Visit [facility] [address] [place] [address] Yareli Rubio DO [address] [place] [address] documented as of this encounter Visit Diagnoses Not on filedocumented in this encounter Additional Health Concerns Assessment Noted Time A fall risk assessment has been complete d for the patient 05/22/2025 1:08 PM EST A Body Mass Index follow-up plan has been documented for the patient 05/22/2025 2:29 PM EST documented as of this encounter Care Teams Piling Cutter Relationship Specialty Start Date End Date Rupal Rasmussen APRN [address] [place] [address] PCP - General 04/18/25 documented as of this encounter
--- OUTSIDE RECORDS SUMMARY | 2025-06-26 13:08 | XMS_ITS | Encounter Summary ---
Author Organization [facility] Address [address] [place] [address] Care Team Providers Care Automobile Leasing Supervisor Name Role Phone Rupal Rasmussen APRN Primary Care Provider [phone] Encounter Details Date Type Department Care Team (Latest Contact Info) Description 05/21/2025 Travel Social History Tobacco Use Types Packs/Day Years [...] Description 07/30/2025 3:15 PM EST Office Visit [facility] [address] [place] [address] Yareli Rubio, DO [address] [place] [address] documented as of this encounter Visit Diagnoses Not on filedocumented in this encounter Care Teams Automobile Leasing Supervisor Relationship Specialty Start Date End Date Rupal Rasmussen APRN [address] [place] [address] PCP - General 04/18/25 documented as of this encounter
--- OUTSIDE RECORDS SUMMARY | 2025-06-26 13:08 | XMS_ITS | Encounter Summary ---
Author Organization [facility] Address [address] [place] [address] Care Team Providers Care Shaper And Presser Name Role Phone Rupal Rasmussen APRN Primary Care Provider [phone] Reason for Referral * Consultation (Routine) - Authorized Specialty Diagnoses / Procedures Referred By Anne Marie sexton Referred To Contact Cardiothoracic Surgery Diagnoses Thoracic outlet syndrome of left thoracic outlet Yareli Rubio DO [address] [place] [address] Phone: tel: fax: Cardiothoracic Surgery [address] [place] [address] Phone: tel: Referral ID Status Reason Start Date Expiration Date Visits Requested Visits Authorized [id number] Authorized Specialty Services Required 06/07/2025 12/07/2026 1 1 Encounter Details Date Type Department Care Team (Late st Contact Info) Description 06/07/2025 Orders Only [facility] [address] [place] [address] Yareli Rubio DO [address] [facility] [address] [place] [address] Thoracic outlet syndrome of left thoracic outlet (Primary Dx) Social History Tobacco Use Types Packs/Day Years [...] Description 07/30/2025 3:15 PM EST [facility] [address] [place] [address] Antic, Yareli, DO [address] [place] [address] Scheduled Referrals Name Type Priority Associated Diagnoses Order Schedule Ambulatory referral to Thoracic Surgery Outpatient Referral Routine Thoracic outlet syndrome of left thoracic outlet Expected: 06/07/2025 (Approximate), Expires: 12/09/2026 documented as of this encounter Visit Diagnoses Diagnosis Thoracic outlet syndrome of left thoracic outlet- Primary documented in this encounter Additional Health Concerns Assessment Noted Time A fall risk assessment has been complete d for the patient 05/22/2025 1:08 PM EST A Body Mass Index follow-up plan has been documented for the patient 05/22/2025 2:29 PM EST documented as of this encounter Care Teams Shaper And Presser Relationship Specialty Start Date End Date Rupal Rasmussen APRN [address] [place] [address] PCP - General 04/18/25 documented as of this encounter
--- OUTSIDE RECORDS SUMMARY | 2025-06-26 13:08 | XMS_ITS | Clinical Summary ---
Author Organization [facility] Address [address] [place] [address] Care Team Providers Care Cryogenics Repairer Name Role Phone Rupal Rasmussen APRN Primary Care Provider [phone] Allergies Active Allergy Reactions Criticality Noted Date Comments Sulfamethoxazole Unknown - Patient states they do not know rxn details Low 05/22/2025 Sulfamethoxazole-Trimethoprim Other - pl ease document in the comment field Low 05/22/2025 Trimethoprim Unknown - Patient states they do not know rxn details Low 05/22/2025 Medications No known medications Resolved Problems Problem Noted Date Diagnosed Date Resolved Date Abdominal distension (gaseous) 03/15/2025 05/22/2025 Eructation 03/15/2025 05/22/2025 Contact with [employer] tool 01/28/2025 05/22/2025 Laceration without foreign b kiko of left hand, initial encounter 01/28/2025 05/22/2025 Pruritus, unspecified 01/09/20252024 Cervicalgia 11/30/2024 05/22/2025 Chronic obstructive pulmonar y disease, unspecified 11/30/2024 05/22/2025 Left upper quadrant pain 11/30/2024 Hyperlipidemia, unspecified 11/30/2024 05/22/2025 Pain in left shoulder 11/30/20242024 Benign neoplasm of descending colon 09/21/2024 05/22/2025 Benign neoplasm of sigmoid colon 09/21/2024 05/22/2025 Other hemorrhoids 09/21/2024 05/22/2025 Polyp of colon 09/21/2024 05/22/2025 Second degree hemorrhoids 09/21/2024 Constipation, unspecified 08/31/2024 Myopia, bilateral 08/07/2024 05/22/2025 Cyst of kidney, acquired 07/19/2024 Other specified disorders of kidney and ureter 06/23/2024 05/22/2025 Pain in thoracic spine 06/21/202405/22 Sacroiliitis, not elsewhere classified 06/21/2024 05/22/2025 Segmental and somatic dysfun ction of lower extremity 06/21/2024 05/22/2025 Atherosclerotic heart diseas e of [place] coronary artery without angina pectoris 05/30/2024 05/22/2025 Chest pain, unspecified 05/30/202405/05 Encounters Date Type Department Care Team Description 06/19/2025 Telephone [facility] Medicine Specialties [address], [address] [place] [address] Yareli Rubio DO HCN - Patient Message 06/18/2025 Telephone [facility] Medicine Specialties [address], [address] [place] [address] Yareli Rubio DO 06/15/2025 Telephone [facility] Comprehensive Vascular Clinic [address] [facility] [address] [place] [address] Gavin Graham MD 06/08/2025 Telephone [facility] [address] [place] [address] Gavin Graham MD 06/08/2025 Telephone [facility] Medicine Specialties [address], [address] [place] [address] Yareli Rubio DO 06/07/2025 Orders Only [facility] Medicine Specialties [address], [address] [place] [address] Yareli Rubio DO Thoracic outlet syndrome of left thoracic outlet (Primary Dx) 05/22/2025 2:24 PM EST - 05/22/2025 11:59 PM EST Hospital Encounter [facility] Radiology [address] [place] [address] Polyarthralgia; Left-sided chest wall pain; Chronic elbow pain, left; Chronic left shoulder pain Discharge Disposition: Home or Self Care 05/22/2025 1:15 PM EST Consult [facility] Medicine Specialties [address] [place] [address] Yareli Rubio DO Polyarthralgia (Primary Dx); Left-sided chest wall pain; Chronic left shoulder pain; Chronic elbow pain, left; Chronic intractable headache, unspecified headache type; Thoracic outlet syndrome of left thoracic outlet 05/22/2025 Travel 05/21/2025 Travel from Last 3 Months Social History Tobacco Use Types Packs/Day Years Used Date Smoking Tobacco: Every Day Cigarettes 0.5 25 Smokeless Tobacco: Never Sex and Gender Information Value Date Recorded Sex Assigned at Not on file Legal Sex Male 1:24 PM EDT Gender Identity Not on file Sexual Orientation Not on file Last Filed Vital Signs Vital Sign Reading [...] Mass Index 22.52 05/22/2025 1:05 PM EST Plan of Treatment Upcoming Encounters Date Type Department Care Team (Late st Contact Info) Description 07/30/2025 3:15 PM EST Office Visit [facility] Medicine Specialties [address] [place] [address] Yareli Rubio DO [address] [place] [address] Health Maintenance Due Date Last Done Comments [facility]-Depression Screening 1974 [facility]-HIV Screening 1974 [facility]-/Child/Adol SDOH Screenings 1974 [facility]- SDOH Screenings 1992 [facility]-Adult SDOH Screenings 1992 [facility]-DTaP,Tdap,and Td Vaccine s (1 - Tdap) 1993 [facility]-Hepatitis B Vaccines (1 of 3 - 19+ 3-dose series) 1993 [facility]-Pneumococcal Vaccine: 50 + Years (1 of 2 - PCV) 1993 CT Colonography 2019 Colonoscopy 2019 FIT-DNA 2019 FIT 2019 FOBT 2019 Sigmoidoscopy 2019 [facility]-Colorectal Cancer Screening 2019 [facility]-Zoster Vaccines (1 of 2) 2024 [id number] Vaccine (1 - 20 25-26 season) 2025 [facility]-Influenza Vaccine (#1) 2025 05/11/2024 [facility]-Hepatitis C Screening Completed 05/22/2025 HPV Vaccines (No Doses Required) Completed [facility]-HIB Vaccines Aged Out No longer e [...] on patient's age to complete this topic Procedures Procedure Name Priority Date/Time Associated Diagnosis Comments CBC WITH AUTO DIFFERENTIAL Routine 05/22/2025 3:09 PM EST Polyarthralgia COMPREHENSIVE METABOLIC PANEL, PLASMA Routine 05/22/2025 3:09 PM EST Polyarthralgia C-REACTIVE PROTEIN, PLASMA Routine 05/22/2025 3:09 PM EST Polyarthralgia SEDIMENTATION RATE, AUTOMATED Routine 05/22/2025 3:09 PM EST Polyarthralgia ANTINUCLEAR ANTIBODY (TITO) WITH HEP-2 SUBSTRATE, IGG BY IFA (SO) Routine 05/22/2025 3:09 PM EST Polyarthralgia ROUSE/ANIMAL CARETAKER SUPERVISOR (JOAQUÍN) ANTIBODY, IGG (SO) Routine 05/22/2025 3:09 PM EST Polyarthralgia VITAMIN D 25 HYDROXY Routine 05/22/2025 3:09 PM EST Polyarthralgia CYCLIC CITRUL PEPTIDE ANTIBODY IGG Routine 05/22/2025 3:09 PM EST Polyarthralgia RHEUMATOID FACTOR, PLASMA Routine 05/22/2025 3:09 PM EST Polyarthralgia QUANTIFERON TB GOLD PLUS Routine 05/22/2025 3:09 PM EST Polyarthralgia ACUTE HEPATITIS PANEL Routine 05/22/2025 3:09 PM EST Polyarthralgia B. BURGDORFERI VLSE1/PEPC10 ABS, TOTAL BY ANTONINO WITH REFLEX TO IGG AND IGM BY IMMUNOBLOT(STANDARD TWO-TIER TESTING)(SO) Routine 05/22/2025 3:09 PM EST Polyarthralgia XR SHOULDER LEFT 2+ VIEWS Routine 05/22/2025 3:01 PM EST Left-sided chest wall pain Chronic left shoulder pain XR ELBOW LEFT 3+ VIEWS Routine 3:01 PM EST Polyarthralgia Chronic elbow pain, left XR RIBS 3 VIEWS BILATERAL Routine 05/22/2025 3:01 PM EST Polyarthralgia Left-sided chest wall pain XR HAND WRIST BILATERAL 2 VIEWS Routine 05/22/2025 3:01 PM EST Polyarthralgia from Last 3 Months Results * B. burgdorferi VlsE1/pepC10 Abs, Total by ANTONINO with Reflex to IgG and IgM by Immunoblot(Standard Two-Tier Testing)(SO) (05/22/2025 3:09 PM EST) Pathologist [facility] B. burgdorferi VlsE1/pepC10 Abs, ANTONINO 0.59 <=0.90 IV 05/24/2025 10:10 PM EST [facility] ([facility]) Blood Venous blood specimen / Unknown Venipuncture / Unknown 05/22/2025 3:09 PM EST 05/22/2025 3:10 PM EST Narrative [facility] ([facility]) - 05/24/2025 10:10 PM EST When Borrelia [...] antibodies to B. burgdorferi detected. Performed By: [employer] [address] [place] [address] Clay Preparation Supervisor: Gregory Cormier MD, PhD CLIA Number: [id number] Yareli Rubio DO LAB REF LAB BLOOD AND FLUID ORD Final Result [facility] [employer]) [address] [phone] * ENAI (05/22/2025 3:09 PM EST) Pathologist [facility] Rouse/ANIMAL CARETAKER SUPERVISOR (JOAQUÍN) Ab, IgG 6 0 - 19 Units 05/25/2025 7:23 AM EST [facility] ([facility]) Blood Venous blood specimen / Unknown Venipuncture / Unknown 05/22/2025 3:09 PM EST 05/22/2025 3:10 PM EST Narrative [facility]) - 05/25/2025 7:23 AM EST INTERPRETIVE INFORMATION: Rouse/ANIMAL CARETAKER SUPERVISOR (JOAQUÍN) Antibody, IgG 19 Units or Less ............. Negative 20 to 39 Units ............... Weak Positive 40 to 80 Units ............... Moderate Positive 81 Units or greater .......... Strong Positive Rouse/ANIMAL CARETAKER SUPERVISOR antibodies are frequently seen in patients with mixed connective tissue disease (MCTD) and are also associated with other systemic autoimmune rheumatic diseases (SARDs) such as systemic lupus erythematosus (SLE), systemic sclerosis, and myositis. Antibodies targeting the Rouse/ANIMAL CARETAKER SUPERVISOR antigenic complex also recognize Rouse antigens, therefore, the Rouse antibody response must be considered when interpreting these results. Performed By: [employer] [address] [place] [address] Clay Preparation Supervisor: Gregory Cormier MD, PhD CLIA Number: [id number] S[facility] LAB BLOOD ORDERABLES Final Resu lt Performing Organization Address City/[facility]/ZIP Co de Phone Number [facility] ([facility]) [address] [place] [address] * Cyclic Citrul Peptide Antibody IgG (05/22/2025 3:09 PM EST) [facility] Cyclic Citrul Peptide Antibody IgG <5.0 <=5.0 U/mL 05/22/2025 5:39 PM EST [facility] Blood Venous blood specimen / Unknown Venipuncture / Unknown 05/22/2025 3:09 PM EST 05/22/2025 3:10 PM EST [facility] LAB BLOOD ORDERABLES Final Resu lt [facility] [address] [place] [address] * Hepatitis panel, acute (05/22/2025 3:09 PM EST) [facility] Hepatitis B Surf Antigen Negative Negative 05/22/2025 7:18 PM EST [facility] Hepatitis C Antibody Negative Negative 05/22/2025 7:18 PM EST [facility] Hepatitis A Antibody IgM Negative Negative 05/22/2025 7:18 PM EST [facility] Hepatitis B Core Antibody IgM Negative Negative 05/22/2025 7:18 PM EST [facility] Blood Venous blood specimen / Unknown Venipuncture / Unknown 05/22/2025 3:09 PM EST 05/22/2025 3:10 PM EST us YareliAB [employer] DO LAB BLOOD ORDERABLES Final Resu lt Performing Organization Address City/[facility]/ZIP Co de Phone Number [facility] [address] [place] [address] * Quantiferon TB Gold Plus (05/22/2025 3:09 PM EST) Pathologist [facility] Quantiferon TB Gold Plus Result Negative Negative 05/23/2025 4:32 PM EST [facility] TB Nill Value 0.0516 IU/mL 05/23/2025 4:32 PM EST [facility] TB Antigen 1 0.0329 IU/mL 05/23/2025 4:32 PM EST [facility] TB Antigen 2 0.0834 IU/mL 05/23/2025 4:32 PM EST [facility] TB Mitogen 9.9484 IU/mL 05/23/2025 4:32 PM EST [facility] Blood Venous blood specimen / Unknown Venipuncture / Unknown 05/22/2025 3:09 PM EST 05/22/2025 3:10 PM EST Narrative [facility] - 05/23/2025 4:32 PM EST Responses to the Mitogen positive control and occasionally to TB antigen can be above the assay range. For calculation purposes: IFN-gamma values > 10 IU/mL are handled as 10 IU/mL. us Sohalo DO LAB BLOOD ORDERABLES Final Resu lt Performing Organization Address City/[facility]/ZIP Co de Phone Number [facility] [address] [place] [address] * Vitamin D 25 Hydroxy (05/22/2025 3:09 PM EST) Pathologist [facility] Vitamin D 25 Hydroxy 37.8 20.0 - 80.0 ng/mL 05/22/2025 7:16 PM EST [facility] Blood Venous blood specimen / Unknown Venipuncture / Unknown 05/22/2025 3:09 PM EST 05/22/2025 3:10 PM EST Narrative [facility] - 05/22/2025 7:16 PM EST Testing performed on [employer], standardized against NIST SRM 2972. When testing [...] to 80 ng/mL Possible toxicity: >100 ng/mL [facility] LAB BLOOD ORDERABLES Final Resu lt Performing Organization Address City/[facility]/ZIP Co de Phone Number [facility] [address] [place] [address] * (ABNORMAL) Sedimentation Rate, Automated (05/22/2025 3:09 PM EST) Pathologist [facility] Sedimentation Rate 20(H) <20 mm/hr 2024 5:03 PM EST [facility] Blood Venous blood specimen / Unknown Venipuncture / Unknown 05/22/2025 3:09 PM EST 05/22/2025 3:10 PM EST [facility] LAB BLOOD ORDERABLES Final Resu lt [facility] [address] [place] [address] * CBC and Differential (05/22/2025 3:09 PM EST) Pathologist [facility] WBC Count 9.32 3.70 - 10.30 10*3/uL LAB HEMATOLOGY METHOD 05/22/2025 4:46 PM EST [facility] RBC Count 4.90 4.60 - 6.10 10*6/uL LAB HEMATOLOGY METHOD 05/22/2025 4:46 PM EST [facility] HGB 15.7 13.7 - 17.5 g/dL LAB HEMATOLOGY METHOD 05/22/2025 4:46 PM EST [facility] HCT 45.8 40.0 - 51.0 % LAB HEMATOLOGY METHOD 05/22/2025 4:46 PM EST [facility] Platelet Count 363 155 - 369 10*3/uL LAB HEMATOLOGY METHOD 05/22/2025 4:46 PM EST [facility] MCV 94 79 - 98 fL LAB HEMATOLOGY METHOD 05/22/2025 4:46 PM EST [facility] MCH 32.0 26.0 - 32.0 pg LAB HEMATOLOGY METHOD 05/22/2025 4:46 PM EST [facility] MCHC 34.3 30.7 - 35.5 g/dL LAB HEMATOLOGY METHOD 05/22/2025 4:46 PM EST [facility] RDW 13.1 11.5 - 14.5 % LAB HEMATOLOGY METHOD 05/22/2025 4:46 PM EST [facility] MPV 10.5 8.8 - 12.5 fL LAB HEMATOLOGY METHOD 05/22/2025 4:46 PM EST [facility] nRBC 0.0 <=0.0 per 100 WBCs LAB HEMATOLOGY METHOD 05/22/2025 4:[address] [facility] Differential Type Automated LAB HEMATOLOGY METHOD 05/22/2025 4:[address] [facility] Neutrophils % 60 % LAB HEMATOLOGY METHOD 05/22/2025 4:46 PM EST [facility] Lymphocytes % 29 % LAB HEMATOLOGY METHOD 05/22/2025 4:46 PM EST [facility] Monocytes % 7 % LAB HEMATOLOGY METHOD 05/22/2025 4:46 PM EST [facility] Eosinophils % 3 % LAB HEMATOLOGY METHOD 05/22/2025 4:46 PM EST [facility] Basophils % 1 % LAB HEMATOLOGY METHOD 05/22/2025 4:46 PM EST [facility] Immature Granulocytes % 0 % LAB HEMATOLOGY METHOD 05/22/2025 4:46 PM EST [facility] Neutrophils Absolute 5.61 1.60 - 6.10 10*3/uL LAB HEMATOLOGY METHOD 05/22/2025 4:46 PM EST [facility] Lymphocytes Absolute 2.70 1.20 - 3.90 10*3/uL LAB HEMATOLOGY METHOD 05/22/2025 4:46 PM EST [facility] Monocytes Absolute 0.68 0.30 - 0.90 10*3/uL LAB HEMATOLOGY METHOD 05/22/2025 4:46 PM EST [facility] Eosinophils Absolute 0.24 0.00 - 0.50 10*3/uL LAB HEMATOLOGY METHOD 05/22/2025 4:46 PM EST [facility] Basophils Absolute 0.06 0.00 - 0.10 10*3/uL LAB HEMATOLOGY METHOD 05/22/2025 4:46 PM EST [facility] Immature Granulocytes Absolute 0.03 0.00 - 0.06 10*3/uL LAB HEMATOLOGY METHOD 05/22/2025 4:46 PM EST [facility] Blood Venous blood specimen / Unknown Venipuncture / Unknown 05/22/2025 3:09 PM EST 05/22/2025 3:10 PM EST Narrative [facility] - 05/22/2025 4:46 PM EST Therapeutic decision making should be based on absolute values, rather than percentages. [facility] LAB BLOOD ORDERABLES Final Resu lt [facility] [address] [place] [address] * Rheumatoid Factor, Plasma (05/22/2025 3:09 PM EST) Rheumatoid Factor, Plasma <10 <14 IU/mL 05/22/2025 4:53 PM EST [facility] Blood Venous blood specimen / Unknown Venipuncture / Unknown 05/22/2025 3:09 PM EST 05/22/2025 3:10 PM EST [facility] LAB BLOOD ORDERABLES Final Resu lt [facility] [address] [place] [address] * C-Reactive Protein, Plasma (05/22/2025 3:09 PM EST) CRP, Plasma <3.0 <=8.0 mg/L 05/22/2025 4:53 PM EST [facility] Blood Venous blood specimen / Unknown Venipuncture / Unknown 05/22/2025 3:09 PM EST 05/22/2025 3:10 PM EST Narrative [facility] - 05/22/2025 4:53 PM EST This CRP test is appropriate for assessment of infection, systemic inflammation and/or tissue injury. To assess cardiovascular disease risk order high sensitivity CRP (CRPH). us Yareli Rubio DO LAB BLOOD ORDERABLES Final Resu lt [facility] [address] [place] [address] * Antinuclear Antibody (TITO), HEp-2, IgG (05/22/2025 3:09 PM EST) TITO INTERPRETIVE COMMENT See Note 05/26/2025 3:21 PM EST [facility] ([employer] [facility]) Anti Nuc Ab Screen <1:80 <1:80 05/26/2025 3:21 PM EST [facility] ([facility]) Blood Venous blood specimen / Unknown Venipuncture / Unknown 05/22/2025 3:09 PM EST 05/22/2025 3:10 PM EST Narrative [facility] ([employer] [facility]) - 05/26/2025 3:21 PM EST Clinical Interpretation: [...] not necessarily rule out SARD. Performed By: [employer] [address] [place] [address] Clay Preparation Supervisor: Gregory Cormier MD, PhD CLIA Number: [id number] us Yarelinorma Rubio LAB BLOOD ORDERABLES Final Resu lt [facility] ([facility]) [address] [place] [address] * Comprehensive Metabolic Panel, Plasma (05/22/2025 3:09 PM EST) Glucose, Plasma 75 74 - 99 mg/dL 05/22/2025 4:53 PM EST [facility] BUN, Plasma 16 7 - 21 mg/dL 05/22/2025 4:53 PM EST [facility] Creatinine, Plasma 0.86 0.70 - 1.20 mg/dL 05/22/2025 4:53 PM EST [facility] BUN/Creatinine Ratio 19 05/22/2025 4:53 PM EST [facility] Sodium, Plasma 141 136 - 145 mmol/L 05/22/2025 4:53 PM EST [facility] Potassium, Plasma 4.3 3.6 - 4.9 mmol/L 05/22/2025 4:53 PM EST [facility] Chloride, Plasma 105 97 - 107 mmol/L 05/22/2025 4:53 PM EST [facility] CO2, Plasma 27 22 - 29 mmol/L 05/22/2025 4:53 PM EST [facility] Anion Gap 9 6 - 16 mmol/L 05/22/2025 4:53 PM EST [facility] Total Calcium, Plasma 9.4 8.9 - 10.2 mg/dL 05/22/2025 4:53 PM EST [facility] Total Protein 7.4 6.3 - 7.9 g/dL 05/22/2025 4:53 PM EST [facility] Albumin, Plasma 4.5 3.5 - 5.2 g/dL 05/22/2025 4:53 PM EST [facility] AST, Plasma 23 10 - 50 U/L 05/22/2025 4:53 PM EST [facility] ALT, Plasma 24 10 - 50 U/L 05/22/2025 4:53 PM EST [facility] Alkaline Phosphatase, Plasma 89 40 - 115 U/L 05/22/2025 4:53 PM EST [facility] Total Bilirubin, Plasma 0.2 0.2 - 1.1 mg/dL 05/22/2025 4:53 PM EST [facility] eGFRcr 105.5 mL/min/1.7 3m*2 05/22/2025 4:53 PM EST [facility] Comment:Reported eGFRcr in m L/min/1.73m2 is based the CKD-EPI 2020 equation that does not use a race coefficient. Blood Venous blood specimen / Unknown Venipuncture / Unknown 05/22/2025 3:09 PM EST 05/22/2025 3:10 PM EST us Yareli Rubio DO LAB BLOOD ORDERABLES Final Resu lt [facility] [address] [place] [address] * XR Hand and Wrist Bilateral 2 [...] Irizarry on 05/22/2025 3:15 PM Yareli Rubio IMG XR PROCEDURES Final Result * XR [...] IMG XR PROCEDURES Final Result * XR Shoulder Left 2+ Views (05/22/2025 [...] Rubio DO IMG XR PROCEDURES Final Result from Last 3 Months Insurance [employer] [facility] MEDICAID Care Teams Cryogenics Repairer Relationship Specialty Start Date End Date Rupal Rasmussen APRN [address] [place] [address] PCP - General 04/18/25
--- OUTSIDE RECORDS SUMMARY | 2025-06-26 13:08 | XMS_ITS | Encounter Summary ---
Author Organization [facility] Address [address] [place] [address] Care Team Providers Care Business Development Intern Name Role Phone Rupal Rasmussen APRN Primary Care Provider [phone] Encounter Details Date Type Department Care Team (Latest Contact Info) Description 05/22/2025 Travel Social History Tobacco Use Types Packs/Day [...] Description 07/30/2025 3:15 PM EST Office Visit [facility] [address] [place] [address] Yareli Rubio DO [address] [place] [address] documented as of this encounter Visit Diagnoses Not on filedocumented in this encounter Additional Health Concerns Assessment Noted Time A fall risk assessment has been complete d for the patient 05/22/2025 1:08 PM EST A Body Mass Index follow-up plan has been documented for the patient 05/22/2025 2:29 PM EST documented as of this encounter Care Teams Business Development Intern Relationship Specialty Start Date End Date Rupal Rasmussen APRN [address] [place] [address] PCP - General 04/18/25 documented as of this encounter
[2025-06-26] MEDS: GADOTERIDOL INJ 20ML SYRINGE 12 ML IV (13:41)
== END 2025-06-26 23:59 | disposition home or self-care (01) ==
LOC: RAD 13:03
PROVIDERS: PCP Nurse Practitioner Family; Visit Provider Student in an Organized Health Care Education/Training Program
DX: M75.52 Bursitis of left shoulder (principal); G54.0 Brachial plexus disorders; R07.89 Other chest pain
CPT/HCPCS: 73220; 73223; A9576